=== PATIENT | female | born 1935 | race Caucasian/White ===

== ENCOUNTER 2022-02-15 15:20 | Inpatient (IN) | payer BC, MEDICARE ==
[~2022-02-15] VITALS: Ht 160 cm; Wt 58.1 kg
[~2022-02-15 15:20] MED LIST: [UNRECOGNIZED DRUG - REMARK]
--- NOTE | 2022-02-15 15:38 | NUR ---
To ER bed 14, MACEY RA 102 From [facility] "Psych/Combative/Agitated", uncooperative, connected to monitor, breathing even and non labored, awaiting md orders
--- NOTE | 2022-02-15 15:55 | NUR ---
AIR GRINDER AT BEDSIDE FOR BLOOD DRAW
--- NOTE | 2022-02-15 16:09 | NUR ---
URINE COLLECTED AND SENT TO LAB
[2022-02-15 16:17] LABS: BASOPHILS % (AUTO) 0.3 % (0.0-2.0); EOSINOPHILS % (AUTO) 2.2 % (0.0-6.0); HEMATOCRIT 37 % (33-45); HEMOGLOBIN 12.7 g/dL (11.5-14.8); LYMPHOCYTES # (AUTO) 1.7 K/uL (0.8-4.8); LYMPHOCYTES % (AUTO) 18.1 % (20.0-44.0); MEAN CORPUSCULAR HGB CONC 34 g/dl (31.0-36.0); MEAN CORPUSCULAR VOLUME 95 fL (82-100); MONOCYTES % (AUTO) 10.7 % (2.0-12.0); NEUTROPHILS # (AUTO) 6.4 K/uL (1.8-8.9); NEUTROPHILS % (AUTO) 68.7 % (43.0-81.0); PLATELET COUNT (AUTO) 254 K/uL (150-450); RED BLOOD CELL COUNT(AUTO) 3.92 MIL/uL (4.0-5.2); WHITE BLOOD COUNT (AUTO) 9.3 K/uL (4.3-11.0)
[2022-02-15 16:27] LABS: CARBON DIOXIDE 27 mmol/L (21-32); CHLORIDE 96 mmol/L (98-107); CREATININE 0.7 mg/dL (0.6-1.3); GLUCOSE 144 mg/dL (74-106); POTASSIUM 3.8 mmol/L (3.5-5.1); SODIUM SERUM 132 mmol/L (136-145); UREA NITROGEN, BLOOD 16 mg/dL (7-18)
[2022-02-15 16:35] LABS: ACETAMINOPHEN 0 ug/ml (10-30); ALANINE AMINOTRANSFERASE 14 U/L (12-78); ALCOHOL, BLOOD < 3 mg/dL (0-0); ALKALINE PHOSPHATASE 76 U/L (46-116); ASPARTATE AMINOTRANSFERASE 14 U/L (15-37); BILIRUBIN,DIRECT 0.2 mg/dL (0.0-0.2); BILIRUBIN,TOTAL 0.6 mg/dL (0.2-1.0); TOTAL PROTEIN, SERUM 7.5 g/dL (6.4-8.2)
[2022-02-15 17:14] LABS: BILIRUBIN,URINE NEGATIVE (NEGATIVE); COLOR,URINE YELLOW (YELLOW); LEUKOCYTE ESTERASE ,URINE MODERATE (NEGATIVE); NITRITE, URINE NEGATIVE (NEGATIVE); PROTEIN,URINE NEGATIVE (NEGATIVE); UGLUCOSE NEGATIVE (NEGATIVE); UROBILINOGEN,URINE 0.2 EU/dL (0.2)
[2022-02-15 17:19] LABS: BACTERIA,URINE 1+ /HPF (None Seen); SQUAMOUS EPITHELIAL CELL,UR 0-2 /HPF (None Seen); WBC,URINE 81-100 /HPF (0-3)
[2022-02-15] MEDS ORDERED: LEVO50TA8 PO (17:27)
[2022-02-15] MEDS ORDERED: DIVA125T32 PO (17:27)
[2022-02-15] MEDS ORDERED: QUET25TA PO ×2 (17:27)
[2022-02-15] MEDS ORDERED: LORA-258 PO (17:27)
[2022-02-15] MEDS ORDERED: TRAZ-182 PO (17:27)
[2022-02-15] MEDS ORDERED: ONDA-97 PO (17:27)
[2022-02-15] MEDS ORDERED: LOPE2TAB23 PO (17:27)
[2022-02-15] MEDS ORDERED: VALE500C PO (17:27)
[2022-02-15] MEDS ORDERED: PANT40TA49 PO (17:27)
[2022-02-15] MEDS ORDERED: ATOR20TA PO (17:27)
--- NOTE | 2022-02-15 18:32 | NUR ---
MOVE SHEET SUBMITTED.
[2022-02-15] MEDS ORDERED: ONDANSETRON 4 MG TAB.RAPDIS PO PRN (19:30)
[2022-02-15] MEDS ORDERED: LOPERAMIDE HCL (2 MG CAP) 2 MG CAPSULE PO PRN (19:30)
--- NOTE | 2022-02-15 21:53 | NUR ---
REPORT GIVEN TO ANDRIA RIVAS
--- NOTE | 2022-02-15 22:12 | NUR ---
PATIENT TRANSFERRED TO [facility]
[2022-02-15] MEDS ORDERED: MAGNESIUM HYDROXIDE 30 ML UDC PO PRN (23:00)
[2022-02-15] MEDS: ATORVASTATIN 10 MG TABLET PO SCH (23:12)
[2022-02-15] MEDS ORDERED: BLOOD SUGAR DIAGNOSTIC 1 EACH STRIP IN ONE (23:30)
[2022-02-15 23:33] VITALS: BP 125/69
--- NOTE | 2022-02-16 00:54 | NUR ---
RN NOTES : ADMISSION NOTES: ADMITTED THIS 87Y/O FEMALE PATIENT ADMIT FROM [facility] , INIT[facility]ALLY [facility] [place]. ADMITTED TO 5150 HOLD DTO,DTS,GD , PER HOLD PT.SUICIDAL THOUGHTS ,REFUSING MEDS, NOT SLEEPING . UPON FACE TO FACE ASSESSMENT PATIENT IS A&O X1, DEPRESSED ,EASILY AGITATED, POOR EYE CONTACT ,DISORGNIZED,RESTLESS,PARANOID,POOR DECISION MAKING ,DENIES SI /HI AT THIS TIME, PT. IS POOR HISTORIAN, POOR INSIGHT ,POOR JUDGEMENT , BOTH MD AWARE AND NOTIFIED OF THE ADMISSION, BELONGINGS CONTRABAND WERE DONE , PT. REFUSED SIGNS ADMISSION CONSENT PAPER DUE TO CONFUSED ,TIRED ,ENCOURAGED PT. TO TAKE SHOWER, PT. RIGHTS DISCUSS BY PROFESSOR OF RADIOLOGY , PROVIDE THE PT. WITH HANDBOOK, AND MEDICATIONS GUIDE, ENVIRONMENTAL SAFETY CHECK DONE, ENCOURAGED PT. VERBALIZED ANY FEELING CONCERN TO STAFF, ORIENT TO UNIT POLICY, NO ACUTE DISTRESS NOTED,VITAL SIGNS WNL ,DENIES ANY PAIN AT THIS TIME,WILL CONTINUE TO MONITOR FOR Q15 SAFETY AND BEHAVIOR.
[2022-02-16] MEDS: LORAZEPAM 0.5 MG TABLET PO PRN (04:23)
--- NOTE | 2022-02-16 04:25 | NUR ---
RN NOTES: ANXIETY PT. NOTED VERY ANXIOUS PARANOID ,RESTLESS, UNCOOERTIVE , NONREDIRECTABLE PRN ATIVAN 0.5 MG PO GIVEN FOR PT. BEHAVIOR, WILL CONTINUE TO MONITOR.
--- NOTE | 2022-02-16 07:30 | NUR ---
RN NOTE: CALLED JEAN-PIERRE ANTON AT [phone] AND NOTIFIED REGARDING PATIENT'S ADMISSION AT [facility].
[2022-02-16 08:00] VITALS: BP 143/69
[2022-02-16] MEDS: LEVOTHYROXINE SODIUM 50 MCG TABLET PO SCH (08:09)
[2022-02-16] MEDS: Z GUARD REMEDY 4 OZ OINT TP SCH (08:10)
[2022-02-16] MEDS: PANTOPRAZOLE 40 MG TABLET.DR PO SCH (08:11)
[2022-02-16] MEDS ORDERED: VALERIAN ROOT PO SCH (09:00)
[2022-02-16] MEDS ORDERED: DIVALPROEX SODIUM 125 MG TABLET.DR PO SCH (09:00)
[2022-02-16 16:00] VITALS: BP 138/69
[2022-02-16] MEDS: QUETIAPINE FUMARATE 25 MG TABLET PO SCH (16:48)
[2022-02-16] MEDS: DIVALPROEX SODIUM 125 MG CAP.SPRINK PO SCH (16:48)
--- NOTE | 2022-02-16 20:26 | NUR ---
RN NOTES:RECEIVED PATIENT RESTING IN HER ROOM, NO S/SX OF ACUTE DISTRESS NOTED. PATIENT REMAINS CONFUSED, ANXIOUS, DISORGANIZED,GIVING INAPPROPRIATE ANSWER TO QUESTIONS, PARANOID, NONREDIRECTABLE NEEDS FREQUENT REDIRECTION. DENIES SI/HI AT THIS TIME.ENCOURAGE TO VERBALIZED ANY FEELING OR CONCERN, SAFETY MEASURES IN PLACE. WILL CONTINUE TO MONITOR Q15MIN ROUNDS FOR SAFETY AND BEHAVIOR.
[2022-02-16 21:05] VITALS: BP 127/60
[2022-02-16] MEDS: QUETIAPINE FUMARATE 100 MG TABLET PO SCH (21:14)
[2022-02-16] MEDS: ATORVASTATIN 10 MG TABLET PO SCH (21:14)
[2022-02-16] MEDS: Z GUARD REMEDY 4 OZ OINT TP PRN (23:29)
--- NOTE | 2022-02-17 00:07 | NUR ---
GPS RN NOTE, PATIENT UA RESULTS ON THE 02/15 ARE FOLLOWS LEUKOCYTES MODERATE H, WBC 81-100 H, BACTERA 1 + H, URINE CULTURE SHOED GRAM NEGATIVE RODS, AND WE ARE WAITING FOR SENSITIVITY. PAGED [facility] Litographs [facility] AND INFORMED DR ROUSE OF MY FINDINGS. DR ROUSE ORDERED BACTRIM DS 800/160MG PO Q12HR X 7 DAYS. ALL ORDERS NOTED AND CARRIED OUT WILL CONTINUE TO MONITOR THIS PATIENT WITH THE HELP OF STAFF.
--- NOTE | 2022-02-17 05:30 | NUR ---
RN NOTES: REFUSED SHOWER PT. REFUSED SHOWER , PER PT. I DONT WANT SHOWER AT THIS TIME, PT BEHAVIOR UNCOOPERTIVE , EASILY AGITATED , ENCOURAGED X3 FOR SHOWER, BUT PT. STRONGLY REFUSED, ENDORSE TO AM SHIFT NURSE.
[2022-02-17 07:19] LABS: BASOPHILS % (AUTO) 0.6 % (0.0-2.0); EOSINOPHILS % (AUTO) 3.5 % (0.0-6.0); HEMATOCRIT 36 % (33-45); HEMOGLOBIN 12.5 g/dL (11.5-14.8); LYMPHOCYTES # (AUTO) 2.1 K/uL (0.8-4.8); LYMPHOCYTES % (AUTO) 37.9 % (20.0-44.0); MEAN CORPUSCULAR HGB CONC 35 g/dl (31.0-36.0); MEAN CORPUSCULAR VOLUME 95 fL (82-100); MONOCYTES # (AUTO) 0.7 K/uL (0.1-1.30); MONOCYTES % (AUTO) 12.5 % (2.0-12.0); NEUTROPHILS # (AUTO) 2.5 K/uL (1.8-8.9); NEUTROPHILS % (AUTO) 45.5 % (43.0-81.0); PLATELET COUNT (AUTO) 255 K/uL (150-450); RED BLOOD CELL COUNT(AUTO) 3.84 MIL/uL (4.0-5.2); WHITE BLOOD COUNT (AUTO) 5.6 K/uL (4.3-11.0)
[2022-02-17 08:00] VITALS: BP 119/52
[2022-02-17] MEDS: DIVALPROEX SODIUM 125 MG CAP.SPRINK PO SCH ×2 (08:17→16:06)
[2022-02-17] MEDS: SULFAMETH/TRIMETH 800/160 MG 1 UDTAB TABLET PO SCH ×2 (08:17→20:17)
[2022-02-17] MEDS: LEVOTHYROXINE SODIUM 50 MCG TABLET PO SCH (08:17)
[2022-02-17] MEDS: QUETIAPINE FUMARATE 25 MG TABLET PO SCH ×2 (08:17→16:06)
[2022-02-17] MEDS: PANTOPRAZOLE 40 MG TABLET.DR PO SCH (08:17)
[2022-02-17] MEDS: Z GUARD REMEDY 4 OZ OINT TP SCH (08:18)
[2022-02-17 08:42] LABS: CALCIUM, SERUM 8.8 mg/dL (8.5-10.1); CREATININE 0.7 mg/dL (0.6-1.3); POTASSIUM 3.6 mmol/L (3.5-5.1)
[2022-02-17 16:00] VITALS: BP 103/68
[2022-02-17] MEDS: LORAZEPAM 0.5 MG TABLET PO PRN (20:10)
--- NOTE | 2022-02-17 20:13 | NUR ---
RN NOTES: ANXIETY PATIENT NOTED TO BE VERY ANXIOUS, PARANOID, RESTLESS AND NON REDIRECTABLE AT THIS TIME. PRN ATIVAN 0.5 MG PO GIVEN FOR PT. BEHAVIOR, WILL CONTINUE TO MONITOR.
[2022-02-17 20:15] VITALS: BP 118/52
[2022-02-17 20:37] VITALS: BP 118/52
[2022-02-17] MEDS: ATORVASTATIN 10 MG TABLET PO SCH (21:33)
[2022-02-17] MEDS: QUETIAPINE FUMARATE 100 MG TABLET PO SCH (21:34)
--- NOTE | 2022-02-18 06:42 | NUR ---
PATIENT SLEPT WELL AT NIGHT. NO ACUTE CHANGES NOTED.
[2022-02-18 08:00] VITALS: BP 130/60
[2022-02-18] MEDS: LEVOTHYROXINE SODIUM 50 MCG TABLET PO SCH (08:29)
[2022-02-18] MEDS: QUETIAPINE FUMARATE 25 MG TABLET PO SCH ×2 (09:00→17:38)
[2022-02-18] MEDS: SULFAMETH/TRIMETH 800/160 MG 1 UDTAB TABLET PO SCH ×2 (09:00→21:30)
[2022-02-18] MEDS: PANTOPRAZOLE 40 MG TABLET.DR PO SCH (09:00)
[2022-02-18] MEDS: DIVALPROEX SODIUM 125 MG CAP.SPRINK PO SCH ×2 (09:00→17:38)
[2022-02-18] MEDS: Z GUARD REMEDY 4 OZ OINT TP SCH (09:05)
--- NOTE | 2022-02-18 11:32 | NUR ---
CORI Clinical Note: Pt placed on a 5150 hold for danger to herself and GD. Pt was aggressive at her facility. [place] [address]; ([phone]) and CORI spoke with Renee ford who stated that pt is welcomed back.
--- NOTE | 2022-02-18 11:32 | NUR ---
CORI Initial Discharge Plan: Patient currently resides at [facility] [address] [place] [address]; ([phone]) and CORI spoke with Renee ford who stated that pt is welcomed back. CORI will work with the MD, family, and treatment team to help coordinate appropriate discharge. Addendum: 02/20/22 at 1480 by CORI FERRELL Correction pt is from Address: [facility] at [address], [place] [address];
--- NOTE | 2022-02-18 11:33 | NUR ---
Treatment Plan: Pt refused to sign her treatment plan and was very confused.
[2022-02-18 16:00] VITALS: BP 136/59
[2022-02-18] MEDS: LORAZEPAM 0.5 MG TABLET PO PRN (19:30)
--- NOTE | 2022-02-18 19:33 | NUR ---
RN NOTE: ANXIETY PATIENT NOTED TO BE VERY ANXIOUS, RESTLESS, EASILY AGITATED, PARANOID AND NON REDIRECTABLE AT THIS TIME. PRN ATIVAN 0.5 MG PO GIVEN FOR PT. BEHAVIOR, WILL CONTINUE TO MONITOR.
[2022-02-18 20:08] VITALS: BP 161/73
[2022-02-18 20:50] VITALS: BP 141/70
[2022-02-18] MEDS: QUETIAPINE FUMARATE 100 MG TABLET PO SCH (21:43)
[2022-02-18] MEDS: ATORVASTATIN 10 MG TABLET PO SCH (21:44)
[2022-02-18 22:57] VITALS: BP 161/73
[2022-02-19 08:00] VITALS: BP 131/60
[2022-02-19] MEDS: LEVOTHYROXINE SODIUM 50 MCG TABLET PO SCH (08:15)
[2022-02-19] MEDS: QUETIAPINE FUMARATE 25 MG TABLET PO SCH ×2 (09:46→17:14)
[2022-02-19] MEDS: SULFAMETH/TRIMETH 800/160 MG 1 UDTAB TABLET PO SCH ×2 (09:46→21:00)
[2022-02-19] MEDS: DIVALPROEX SODIUM 125 MG CAP.SPRINK PO SCH ×3 (09:46→17:14)
[2022-02-19] MEDS: PANTOPRAZOLE 40 MG TABLET.DR PO SCH (09:46)
[2022-02-19] MEDS: Z GUARD REMEDY 4 OZ OINT TP SCH (09:48)
[2022-02-19] MEDS: LORAZEPAM 0.5 MG TABLET PO PRN (10:50)
--- NOTE | 2022-02-19 10:50 | NUR ---
pt anxious medicated with ativan 0.5mg x1 will continue to monitor .
--- NOTE | 2022-02-19 13:05 | NUR ---
CORI FAMILY CONTACT: CORI CONTACTED PT'S SON JEAN-PIERRE ([phone]) AND DISCUSSED PT'S DISCHARGE AND TREATMENT PLAN. SON STATED HE WANTS PT BACK TO [facility]. Addendum: 02/27/22 at 1115 by CORI FERRELL Correct number ([phone])
[2022-02-19 16:16] VITALS: BP 100/59
--- NOTE | 2022-02-19 19:30 | NUR ---
GPS RN NOTES RECEIVED PT IN CHAY CHAIR. ALERT AND DISORIENTED. STATING A DIFFERENT NAME WHEN ASKED. PT IS CONFUSED, ANXIOUS, DISORGANIZED, PARANOID, DISHEVELED, UNKEMPT, NON-REDIRECTABLE AT THIS TIME. ENCOURAGED TO VERBALIZE FEELINGS OR THOUGHTS. HAS UNSTEADY GAIT. SAFETY MEASURES IN PLACED. WILL CONTINUE TO MONITOR Q15MIN ROUNDS FOR SAFETY AND BEHAVIOR.
[2022-02-19] MEDS: QUETIAPINE FUMARATE 100 MG TABLET PO SCH (21:00)
[2022-02-19] MEDS: ATORVASTATIN 10 MG TABLET PO SCH (21:00)
[2022-02-19 22:32] VITALS: BP 136/78
[2022-02-20 08:00] VITALS: BP 114/52
[2022-02-20] MEDS: LEVOTHYROXINE SODIUM 50 MCG TABLET PO SCH (08:14)
[2022-02-20] MEDS: QUETIAPINE FUMARATE 25 MG TABLET PO SCH ×4 (08:56→21:28)
[2022-02-20] MEDS: DIVALPROEX SODIUM 125 MG CAP.SPRINK PO SCH ×3 (08:56→17:53)
[2022-02-20] MEDS: PANTOPRAZOLE 40 MG TABLET.DR PO SCH (08:56)
[2022-02-20] MEDS: SULFAMETH/TRIMETH 800/160 MG 1 UDTAB TABLET PO SCH ×2 (08:56→21:28)
[2022-02-20] MEDS: Z GUARD REMEDY 4 OZ OINT TP SCH (08:58)
--- NOTE | 2022-02-20 09:52 | NUR ---
Facility Contact: [facility] at [address], [place] [address]; and left a voicemail to confirm if pt is welcomed back or not to admissions.
--- NOTE | 2022-02-20 13:08 | NUR ---
RN-CO: REFUSED EKG, RT NOTIFIED DR CESPEDES WHILE IS IN THE NURSING STATION.
[2022-02-20 16:00] VITALS: BP 117/90
[2022-02-20 20:00] VITALS: BP 135/65
[2022-02-20 21:17] LABS: BASOPHILS % (AUTO) 0.6 % (0.0-2.0); EOSINOPHILS % (AUTO) 6.5 % (0.0-6.0); HEMATOCRIT 40 % (33-45); HEMOGLOBIN 13.6 g/dL (11.5-14.8); LYMPHOCYTES # (AUTO) 2.6 K/uL (0.8-4.8); LYMPHOCYTES % (AUTO) 37.3 % (20.0-44.0); MEAN CORPUSCULAR HGB CONC 34 g/dl (31.0-36.0); MEAN CORPUSCULAR VOLUME 97 fL (82-100); MONOCYTES # (AUTO) 0.7 K/uL (0.1-1.30); MONOCYTES % (AUTO) 9.8 % (2.0-12.0); NEUTROPHILS # (AUTO) 3.2 K/uL (1.8-8.9); NEUTROPHILS % (AUTO) 45.8 % (43.0-81.0); PLATELET COUNT (AUTO) 288 K/uL (150-450); RED BLOOD CELL COUNT(AUTO) 4.13 MIL/uL (4.0-5.2)
[2022-02-20] MEDS: ATORVASTATIN 10 MG TABLET PO SCH (21:28)
[2022-02-20 21:30] LABS: ALBUMIN 3.9 g/dL (3.4-5.0); BILIRUBIN,TOTAL 0.3 mg/dL (0.2-1.0); CALCIUM, SERUM 9.4 mg/dL (8.5-10.1); CREATININE 0.9 mg/dL (0.6-1.3); POTASSIUM 4.4 mmol/L (3.5-5.1); TOTAL PROTEIN, SERUM 7.7 g/dL (6.4-8.2)
[2022-02-20] MEDS: ZOLPIDEM TARTRATE 5 MG TABLET PO PRN (23:03)
[2022-02-21 08:00] VITALS: BP 131/60
[2022-02-21] MEDS: LEVOTHYROXINE SODIUM 50 MCG TABLET PO SCH (09:09)
--- NOTE | 2022-02-21 09:27 | NUR ---
Court Hearing: Patient's court hearing for 0880 was today and it was upheld for GD.
--- NOTE | 2022-02-21 09:27 | NUR ---
Court Notification: SW contacted pt's son Jerald ([phone]) and left a voicemail of pt's 0999 hearing.
[2022-02-21] MEDS: SULFAMETH/TRIMETH 800/160 MG 1 UDTAB TABLET PO SCH ×2 (10:10→20:35)
[2022-02-21] MEDS: DIVALPROEX SODIUM 125 MG CAP.SPRINK PO SCH ×3 (10:11→16:43)
[2022-02-21] MEDS: PANTOPRAZOLE 40 MG TABLET.DR PO SCH (10:11)
[2022-02-21] MEDS: Z GUARD REMEDY 4 OZ OINT TP SCH (10:11)
[2022-02-21] MEDS: QUETIAPINE FUMARATE 25 MG TABLET PO SCH ×4 (10:11→21:22)
[2022-02-21 16:00] VITALS: BP 104/75
[2022-02-21] MEDS: LORAZEPAM 0.5 MG TABLET PO PRN (19:53)
--- NOTE | 2022-02-21 19:55 | NUR ---
RN NOTES: ANXIETY PT. NOTED VERY ANXIOUS, PARANOID ,RESTLESS, HYPERVERBAL, REFUSED GO BACK TO BED,NONREDIRECTABLE PRN ATIVAN 0.5 MG PO GIVEN , WILL CONTINUE TO MONITOR.
[2022-02-21 20:00] VITALS: BP 122/64
--- NOTE | 2022-02-21 20:25 | NUR ---
RN NOTES: PATIENT SITTING UP IN CHAY CHAIR, NO S/SX OF ACUTE DISTRESS NOTED. PATIENT CONFUSED, ANXIOUS,FORGETFUL,HYPERVERBAL DISORGANIZED,GIVING INAPPROPRIATE ANSWER TO QUESTIONS, PARANOID, NONREDIRECTABLE,REFUSED GO BACK TO HER BED, NEEDS FREQUENT REDIRECTION. DENIES SI/HI AT THIS TIME.ENCOURAGE TO VERBALIZED ANY FEELING OR CONCERN, SAFETY MEASURES IN PLACE. WILL CONTINUE TO MONITOR Q15MIN ROUNDS FOR SAFETY AND BEHAVIOR.
[2022-02-21] MEDS: ATORVASTATIN 10 MG TABLET PO SCH (21:21)
[2022-02-22 08:00] VITALS: BP 123/54
[2022-02-22] MEDS: DIVALPROEX SODIUM 125 MG CAP.SPRINK PO SCH ×3 (08:23→16:47)
[2022-02-22] MEDS: LEVOTHYROXINE SODIUM 50 MCG TABLET PO SCH (08:23)
[2022-02-22] MEDS: SULFAMETH/TRIMETH 800/160 MG 1 UDTAB TABLET PO SCH ×2 (08:24→21:08)
[2022-02-22] MEDS: PANTOPRAZOLE 40 MG TABLET.DR PO SCH (08:24)
[2022-02-22] MEDS: QUETIAPINE FUMARATE 25 MG TABLET PO SCH ×4 (08:24→21:37)
[2022-02-22] MEDS: ENSURE ENLIVE CHOC 237 ML CAN PO SCH ×2 (08:24→16:46)
[2022-02-22] MEDS: Z GUARD REMEDY 4 OZ OINT TP SCH (08:24)
--- NOTE | 2022-02-22 14:48 | NUR ---
Facility Contact: Per pt's son Jerald, he requested for [facility] ([phone]) to assess the pt. Angie assessed pt and pt is accepted.
[2022-02-22 16:00] VITALS: BP 113/60
[2022-02-22] MEDS: LORAZEPAM 0.5 MG TABLET PO PRN (19:38)
--- NOTE | 2022-02-22 19:39 | NUR ---
RN NOTES: ANXIETY PT. NOTED VERY ANXIOUS, PARANOID ,RESTLESS, HYPERVERBAL, ,NORREDIRECTABLE PRN ATIVAN 0.5 MG PO GIVEN , WILL CONTINUE TO MONITOR.
[2022-02-22 20:54] VITALS: BP 142/60
[2022-02-22] MEDS: ATORVASTATIN 10 MG TABLET PO SCH (21:37)
[2022-02-23] MEDS: Z GUARD REMEDY 4 OZ OINT TP PRN (06:55)
[2022-02-23 08:00] VITALS: BP 116/55
[2022-02-23] MEDS: PANTOPRAZOLE 40 MG TABLET.DR PO SCH (09:19)
[2022-02-23] MEDS: DIVALPROEX SODIUM 125 MG CAP.SPRINK PO SCH ×3 (09:19→17:41)
[2022-02-23] MEDS: QUETIAPINE FUMARATE 25 MG TABLET PO SCH ×4 (09:19→21:45)
[2022-02-23] MEDS: SULFAMETH/TRIMETH 800/160 MG 1 UDTAB TABLET PO SCH ×2 (09:19→20:51)
[2022-02-23] MEDS: ENSURE ENLIVE CHOC 237 ML CAN PO SCH ×2 (09:19→17:40)
[2022-02-23] MEDS: LEVOTHYROXINE SODIUM 50 MCG TABLET PO SCH (09:19)
[2022-02-23] MEDS: Z GUARD REMEDY 4 OZ OINT TP SCH (09:20)
--- NOTE | 2022-02-23 10:26 | NUR ---
Asya VALDES made aware of the result of chest x-ray and ordered to repeat chest x-ray tomorrow.
[2022-02-23 16:00] VITALS: BP 127/60
[2022-02-23] MEDS: LORAZEPAM 0.5 MG TABLET PO PRN (19:33)
--- NOTE | 2022-02-23 19:35 | NUR ---
RN NOTES: ANXIETY PT. NOTED VERY ANXIOUS, PARANOID ,RESTLESS, HYPERVERBAL,BANGING GERICHAIR TABLE YELLING SCRAMING NONREDIRECTABLE PRN ATIVAN 0.5 MG PO GIVEN , WILL CONTINUE TO MONITOR.
--- NOTE | 2022-02-23 20:29 | NUR ---
RN NOTES:PATIENT WATCHING TV IN ACTIVITY ROOM, NO S/SX OF ACUTE DISTRESS NOTED. PATIENT CONFUSED, ANXIOUS,FORGETFUL,HYPERVERBAL DISORGANIZED,GIVING INAPPROPRIATE ANSWER TO QUESTIONS, PARANOID, NONREDIRECTABLE,REFUSED GO BACK TO HER BED, NEEDS FREQUENT REDIRECTION. DENIES SI/HI AT THIS TIME.ENCOURAGE TO VERBALIZED ANY FEELING OR CONCERN, SAFETY MEASURES IN PLACE. WILL CONTINUE TO MONITOR Q15MIN ROUNDS FOR SAFETY AND BEHAVIOR.
[2022-02-23 20:52] VITALS: BP 132/74
[2022-02-23] MEDS: ATORVASTATIN 10 MG TABLET PO SCH (21:44)
[2022-02-24] MEDS: Z GUARD REMEDY 4 OZ OINT TP PRN (07:11)
[2022-02-24 08:00] VITALS: BP 122/53
[2022-02-24] MEDS: ENSURE ENLIVE CHOC 237 ML CAN PO SCH ×2 (08:55→16:33)
[2022-02-24] MEDS: DIVALPROEX SODIUM 125 MG CAP.SPRINK PO SCH ×3 (08:57→16:34)
[2022-02-24] MEDS: PANTOPRAZOLE 40 MG TABLET.DR PO SCH (08:57)
[2022-02-24] MEDS: QUETIAPINE FUMARATE 25 MG TABLET PO SCH ×4 (08:57→21:39)
[2022-02-24] MEDS: LEVOTHYROXINE SODIUM 50 MCG TABLET PO SCH (08:57)
[2022-02-24] MEDS: Z GUARD REMEDY 4 OZ OINT TP SCH (08:58)
[2022-02-24 16:11] VITALS: BP 106/73
[2022-02-24] MEDS: LORAZEPAM 0.5 MG TABLET PO PRN (18:47)
[2022-02-24] MEDS: ATORVASTATIN 10 MG TABLET PO SCH (21:38)
[2022-02-24] MEDS: ZOLPIDEM TARTRATE 5 MG TABLET PO PRN (21:54)
[2022-02-25] MEDS: LORAZEPAM 0.5 MG TABLET PO PRN ×3 (00:26→19:48)
[2022-02-25 08:00] VITALS: BP 117/81
[2022-02-25] MEDS: LEVOTHYROXINE SODIUM 50 MCG TABLET PO SCH (08:08)
[2022-02-25] MEDS: ENSURE ENLIVE CHOC 237 ML CAN PO SCH ×2 (08:08→17:56)
[2022-02-25] MEDS: QUETIAPINE FUMARATE 25 MG TABLET PO SCH ×4 (08:48→21:48)
[2022-02-25] MEDS: Z GUARD REMEDY 4 OZ OINT TP PRN (08:48)
[2022-02-25] MEDS: PANTOPRAZOLE 40 MG TABLET.DR PO SCH (08:48)
[2022-02-25] MEDS: DIVALPROEX SODIUM 125 MG CAP.SPRINK PO SCH ×3 (08:48→17:56)
[2022-02-25] MEDS: Z GUARD REMEDY 4 OZ OINT TP SCH (08:49)
[2022-02-25 16:00] VITALS: BP 116/55
--- NOTE | 2022-02-25 19:50 | NUR ---
RN NOTE: ANXIETY PATIENT IS ANXIOUS, RESTLESS, BANGING ON CHAY CHAIR TRAY. NON REDIRECTABLE AT THIS TIME. PRN ATIVAN 0.5 MG PO ADMINISTERED.
[2022-02-25 20:16] VITALS: BP 128/52
[2022-02-25 20:23] VITALS: BP 128/52
[2022-02-25] MEDS: ATORVASTATIN 10 MG TABLET PO SCH (21:30)
[2022-02-26] MEDS: LEVOTHYROXINE SODIUM 50 MCG TABLET PO SCH (07:27)
[2022-02-26 08:00] VITALS: BP 133/59
[2022-02-26] MEDS: ENSURE ENLIVE CHOC 237 ML CAN PO SCH ×2 (08:15→17:53)
[2022-02-26] MEDS: DIVALPROEX SODIUM 125 MG CAP.SPRINK PO SCH ×3 (08:47→17:52)
[2022-02-26] MEDS: PANTOPRAZOLE 40 MG TABLET.DR PO SCH (08:47)
[2022-02-26] MEDS: Z GUARD REMEDY 4 OZ OINT TP SCH (08:48)
[2022-02-26] MEDS: QUETIAPINE FUMARATE 25 MG TABLET PO SCH ×4 (08:49→21:19)
[2022-02-26 12:55] LABS: BASOPHILS % (AUTO) 0.5 % (0.0-2.0); EOSINOPHILS % (AUTO) 5.3 % (0.0-6.0); HEMATOCRIT 39 % (33-45); LYMPHOCYTES # (AUTO) 1.7 K/uL (0.8-4.8); LYMPHOCYTES % (AUTO) 23.6 % (20.0-44.0); MEAN CORPUSCULAR HGB CONC 34 g/dl (31.0-36.0); MEAN CORPUSCULAR VOLUME 98 fL (82-100); MONOCYTES # (AUTO) 0.5 K/uL (0.1-1.30); MONOCYTES % (AUTO) 6.8 % (2.0-12.0); NEUTROPHILS # (AUTO) 4.6 K/uL (1.8-8.9); NEUTROPHILS % (AUTO) 63.8 % (43.0-81.0); PLATELET COUNT (AUTO) 264 K/uL (150-450); RED BLOOD CELL COUNT(AUTO) 3.95 MIL/uL (4.0-5.2); WHITE BLOOD COUNT (AUTO) 7.3 K/uL (4.3-11.0)
[2022-02-26 13:17] LABS: ALANINE AMINOTRANSFERASE 17 U/L (12-78); ALBUMIN 3.4 g/dL (3.4-5.0); ALKALINE PHOSPHATASE 73 U/L (46-116); ASPARTATE AMINOTRANSFERASE 14 U/L (15-37); BILIRUBIN,TOTAL 0.4 mg/dL (0.2-1.0); CALCIUM, SERUM 8.9 mg/dL (8.5-10.1); CARBON DIOXIDE 31 mmol/L (21-32); CHLORIDE 104 mmol/L (98-107); CREATININE 0.8 mg/dL (0.6-1.3); GLUCOSE 144 mg/dL (74-106); POTASSIUM 4.3 mmol/L (3.5-5.1); SODIUM SERUM 140 mmol/L (136-145); TOTAL PROTEIN, SERUM 6.9 g/dL (6.4-8.2); UREA NITROGEN, BLOOD 22 mg/dL (7-18)
[2022-02-26 16:07] VITALS: BP 120/96
[2022-02-26] MEDS: LORAZEPAM 0.5 MG TABLET PO PRN (19:40)
--- NOTE | 2022-02-26 19:43 | NUR ---
RN NOTE: ANXIETY/AGITATION PATIENT IS ANXIOUS, RESTLESS, AGITATED, BANGING ON CHAY CHAIR TRAY. NON REDIRECTABLE AT THIS TIME. PRN ATIVAN 0.5 MG PO ADMINISTERED. WILL CONTINUE TO MONITOR FOR ANY CHANGES.
[2022-02-26 20:10] VITALS: BP 117/80
[2022-02-26] MEDS: ATORVASTATIN 10 MG TABLET PO SCH (21:05)
[2022-02-26] MEDS: ACETAMINOPHEN 325 MG TABLET PO PRN (21:25)
--- NOTE | 2022-02-26 21:26 | NUR ---
RN NOTE: PAIN PATIENT C/O LOWER BACK PAIN, UNABLE TO SCALE DUE TO CONFUSION. PRN TYLENOL 650 MG PO ADMINISTERED PER MD ORDER. WILL CONTINUE TO MONITOR FOR ANY CHANGES.
[2022-02-26] MEDS: ZOLPIDEM TARTRATE 5 MG TABLET PO PRN (22:12)
--- NOTE | 2022-02-26 22:12 | NUR ---
RN NOTE: INSOMNIA PATIENT WAS ASSISTED TO BED BUT PATIENT REFUSED TO STAY IN BED. PATIENT WAS ASSISTED BACK TO THE CHAY CHAIR FOR SAFETY DUE TO UNSTEADY GAIT AND HIGH FALL RISK. PATIENT NOTED TO BE ANXIOUS, RESTLESS, UNABLE TO SLEEP AT THIS TIME. PRN AMBIEN 5 MG PO ADMINISTERED ORDERED BY MD. WILL CONTINUE TO MONITOR FOR ANY CHANGES.
[2022-02-27] MEDS: LEVOTHYROXINE SODIUM 50 MCG TABLET PO SCH (07:42)
[2022-02-27 08:00] VITALS: BP 122/56
[2022-02-27] MEDS: PANTOPRAZOLE 40 MG TABLET.DR PO SCH (08:46)
[2022-02-27] MEDS: DIVALPROEX SODIUM 125 MG CAP.SPRINK PO SCH ×4 (08:46→17:40)
[2022-02-27] MEDS: ENSURE ENLIVE CHOC 237 ML CAN PO SCH ×2 (08:46→17:40)
[2022-02-27] MEDS: QUETIAPINE FUMARATE 25 MG TABLET PO SCH ×5 (08:46→21:24)
[2022-02-27] MEDS: Z GUARD REMEDY 4 OZ OINT TP SCH (08:47)
[2022-02-27] MEDS: ACETAMINOPHEN 325 MG TABLET PO PRN (09:11)
[2022-02-27] MEDS: MAG HYDROX/AL HYDROX/SIMETH 30 ML UDC PO PRN ×2 (09:18→15:57)
[2022-02-27] MEDS ORDERED: TEMAZEPAM 7.5 MG CAPSULE PO PRN (12:30)
--- NOTE | 2022-02-27 14:00 | NUR ---
NURSE NOTE: PT REFUSED 1300 DEPAKOTE AND SEROQUEL. ATTEMPTED TO GIVE A FEW TIMES, BUT PT REFUSED EACH TIME. WILL CONT TO MONITOR.
[2022-02-27 16:00] VITALS: BP 126/88
[2022-02-27] MEDS: MEMANTINE HCL 5 MG TABLET PO SCH (17:40)
[2022-02-27 20:00] VITALS: BP 143/58
[2022-02-27] MEDS: LORAZEPAM 0.5 MG TABLET PO PRN (20:18)
--- NOTE | 2022-02-27 20:20 | NUR ---
NURSE NOTE: PT IN AGITATED STATE AT THIS TIME. ATIVAN PO ADMINISTERED ORDERED. WILL CONT TO MONITOR.
[2022-02-27] MEDS: ATORVASTATIN 10 MG TABLET PO SCH (21:24)
[2022-02-28 08:00] VITALS: BP 133/67
[2022-02-28] MEDS: LEVOTHYROXINE SODIUM 50 MCG TABLET PO SCH (09:53)
[2022-02-28] MEDS: DIVALPROEX SODIUM 125 MG CAP.SPRINK PO SCH ×3 (09:53→16:44)
[2022-02-28] MEDS: PANTOPRAZOLE 40 MG TABLET.DR PO SCH (09:53)
[2022-02-28] MEDS: QUETIAPINE FUMARATE 25 MG TABLET PO SCH ×4 (09:53→22:15)
[2022-02-28] MEDS: MEMANTINE HCL 5 MG TABLET PO SCH ×2 (09:53→16:44)
[2022-02-28] MEDS: Z GUARD REMEDY 4 OZ OINT TP SCH (09:54)
[2022-02-28] MEDS: ENSURE ENLIVE CHOC 237 ML CAN PO SCH ×2 (09:56→16:45)
[2022-02-28] MEDS: SERTRALINE HCL 25 MG TABLET PO SCH (13:36)
[2022-02-28 16:00] VITALS: BP 140/74
--- NOTE | 2022-02-28 18:37 | NUR ---
RN-NOTES PATIENT IN THE DAY ROOM UP IN THE CHAY CHAIR,AWAKE, GUARDED, QUIET,NO ACUTE DISTRESS NOTED. COMPLIANT WITH MEDICATIONS. GOOD JANUARY CARE RENDERED,NEEDS MODERATE ASSIST WITH ADL'S. NOTED WITH EPISODE OF CRYING. REDIRECTED AND AND REORIENTED PATIENT. ALL NEEDS ATTENDED AND ANTICIPATED. WILL CONT. MONITORING FOR SAFETY AND BEHAVIOR.WILL ENDORSE TO INCOMING NURSE FOR CONTINUITY OF CARE.
--- NOTE | 2022-02-28 19:30 | NUR ---
GPS RN NOTE, RECEIVED PATIENT AWAKE AND IN BED, NO S/S OR COMPLAINTS OF PAIN AT THIS TIME. PATIENT IS DISPLAYING NO S/S OF APPARENT DISTRESS AT THIS TIME. PATIENT BREATHING IS UNLABORED WITH EQUAL RISE AND FALL OF THE CHEST. PATIENT IS ALERT AND ORIENTED X 1 ON ROOM AIR WITH A SPO2 96%. PATIENT IS COMPLIANT WITH MEDICATIONS, CONFUSED, ANXIOUS, HYPERVERBAL, UNPREDICTABLE, AND UNCOOPERATIVE. PATIENT DENIES SUICIDAL AND HOMICIDAL IDEATIONS AT THIS TIME. PATIENT ASSISTED WITH TURNING AND REPOSITIONING Q2HR AND PRN FOR COMFORT AND CIRCULATION. PATIENT HAS NO NEEDS AT THIS TIME. PATIENT EDUCATED ON THE USE OF THE CALL REES. PATIENT BED SIDE RAILS UP X 2 FOR SAFETY. PATIENT BED IS LOCKED, LOW, WITH BED ALARM ON. WILL CONTINUE TO MONITOR THIS PATIENT Q15 MINUTES WITH THE HELP OF STAFF TO MAINTAIN SAFETY.
[2022-02-28] MEDS: LORAZEPAM 0.5 MG TABLET PO PRN (20:24)
--- NOTE | 2022-02-28 20:25 | NUR ---
GPS RN NOTE, PATIENT HAS A COMPLAINT OF FEELING ANXIOUS AND IS REQUESTING ATIVAN AT THIS TIME. PATIENT VITAL SIGNS ARE STABLE. GAVE ATIVAN 0.5MG PO Q6HR PRN ORDERED. WILL REASSESS FOR ANXIETY AND I WLL CONTINUE TO MONITOR THIS PATIENT WITH THE HELP OF STAFF.
[2022-02-28] MEDS: ATORVASTATIN 10 MG TABLET PO SCH (22:15)
[2022-03-01 08:00] VITALS: BP 155/90
[2022-03-01] MEDS: ENSURE ENLIVE CHOC 237 ML CAN PO SCH ×2 (09:48→17:59)
[2022-03-01] MEDS: Z GUARD REMEDY 4 OZ OINT TP SCH (09:48)
[2022-03-01] MEDS: MEMANTINE HCL 5 MG TABLET PO SCH ×2 (09:50→17:58)
[2022-03-01] MEDS: QUETIAPINE FUMARATE 25 MG TABLET PO SCH ×4 (09:50→21:34)
[2022-03-01] MEDS: DOCUSATE SODIUM 100 MG CAPSULE PO SCH (09:51)
[2022-03-01] MEDS: PANTOPRAZOLE 40 MG TABLET.DR PO SCH (09:51)
[2022-03-01] MEDS: DIVALPROEX SODIUM 125 MG CAP.SPRINK PO SCH ×3 (09:51→17:58)
[2022-03-01] MEDS: LEVOTHYROXINE SODIUM 50 MCG TABLET PO SCH (09:51)
[2022-03-01] MEDS: SERTRALINE HCL 25 MG TABLET PO SCH (13:33)
[2022-03-01 16:00] VITALS: BP 145/76
--- NOTE | 2022-03-01 20:24 | NUR ---
RN NOTES: PATIENT RESTING IN BED AWAKE ALERT. PATIENT CONFUSED,ANXIOUS,FORGETFUL,HYPERVERBAL DISORGANIZED,GIVING INAPPROPRIATE ANSWER TO QUESTIONS, PARANOID, NONREDIRECTABLE, NEEDS FREQUENT REDIRECTION. DENIES SI/HI AT THIS TIME.ENCOURAGE TO VERBALIZED ANY FEELING OR CONCERN, SAFETY MEASURES IN PLACE. WILL CONTINUE TO MONITOR Q15MIN ROUNDS FOR SAFETY AND BEHAVIOR.
[2022-03-01 20:38] VITALS: BP 138/58
[2022-03-01] MEDS: ATORVASTATIN 10 MG TABLET PO SCH (21:34)
[2022-03-02 08:00] VITALS: BP 118/65
[2022-03-02] MEDS: ENSURE ENLIVE CHOC 237 ML CAN PO SCH ×2 (08:14→17:18)
[2022-03-02] MEDS: DOCUSATE SODIUM 100 MG CAPSULE PO SCH (08:20)
[2022-03-02] MEDS: LEVOTHYROXINE SODIUM 50 MCG TABLET PO SCH (08:20)
[2022-03-02] MEDS: PANTOPRAZOLE 40 MG TABLET.DR PO SCH (08:20)
[2022-03-02] MEDS: QUETIAPINE FUMARATE 25 MG TABLET PO SCH ×4 (08:20→21:41)
[2022-03-02] MEDS: Z GUARD REMEDY 4 OZ OINT TP SCH (08:21)
[2022-03-02] MEDS: MEMANTINE HCL 5 MG TABLET PO SCH ×2 (08:21→17:20)
[2022-03-02] MEDS: DIVALPROEX SODIUM 125 MG CAP.SPRINK PO SCH ×3 (09:54→17:20)
[2022-03-02] MEDS: SERTRALINE HCL 25 MG TABLET PO SCH (12:04)
[2022-03-02 16:00] VITALS: BP 129/61
[2022-03-02] MEDS: ATORVASTATIN 10 MG TABLET PO SCH (21:41)
[2022-03-02 22:33] VITALS: BP 132/68
[2022-03-03 08:00] VITALS: BP 112/55
[2022-03-03] MEDS: ENSURE ENLIVE CHOC 237 ML CAN PO SCH ×2 (08:42→16:54)
[2022-03-03] MEDS: Z GUARD REMEDY 4 OZ OINT TP SCH (08:45)
[2022-03-03] MEDS: DIVALPROEX SODIUM 125 MG CAP.SPRINK PO SCH ×3 (08:45→16:56)
[2022-03-03] MEDS: QUETIAPINE FUMARATE 25 MG TABLET PO SCH ×4 (08:45→21:12)
[2022-03-03] MEDS: MEMANTINE HCL 5 MG TABLET PO SCH ×2 (08:46→16:56)
[2022-03-03] MEDS: LEVOTHYROXINE SODIUM 50 MCG TABLET PO SCH (08:46)
[2022-03-03] MEDS: DOCUSATE SODIUM 100 MG CAPSULE PO SCH (08:46)
[2022-03-03] MEDS: PANTOPRAZOLE 40 MG TABLET.DR PO SCH (08:46)
[2022-03-03] MEDS: SERTRALINE HCL 25 MG TABLET PO SCH (12:27)
[2022-03-03 16:00] VITALS: BP 133/53
[2022-03-03 20:53] VITALS: BP 112/68
[2022-03-03] MEDS: ATORVASTATIN 10 MG TABLET PO SCH (21:12)
--- NOTE | 2022-03-04 06:12 | NUR ---
RN NOTES: COLLECT COVID ANTIGEN TEST SENT TO LAB.
--- NOTE | 2022-03-04 07:45 | NUR ---
RN NOTES: REFUSED SKIN ASSESSMENT PT.REFUSED WEEKLY SKIN ASSESSMENT, PER PT. I DONT WANT ANY SKIN ASSESSMENT AT THIS TIME, PT BEHAVIOR UNCOOPERTIVE , EASILY AGITATED , ENCOURAGED X3 , BUT PT. STRONGLY REFUSED.
[2022-03-04 08:00] VITALS: BP 120/54
--- NOTE | 2022-03-04 08:05 | NUR ---
Discharge Note: Patient will be discharged to [facility] located at [address] [place] [address]; ([phone]). Facility will provide transportation at 10AM. Angie cohen ([phone]) is aware and agreeable of pt coming to the facility. Patients son Jerald ([phone]) is aware and agreeable. Pt is alert and oriented x1. Pt denies visual/auditory hallucinations. Pt denies suicidal or homicidal ideation. Pt will follow up with (Business Information Analyst) Dr. Lynn at the facility located at [address] [place] [address]; ([phone]). Pt will follow up with Psychiatrist Dr. Andrade located at [address] [place] [address]; ([phone]) at the facility. Pt presents with euthymic mood and congruent affect. Addendum: 03/04/22 at 1116 by CORI FERRELL Discharge canceled and postponed for 03/05/2022. Pt's son Jerald is aware.
[2022-03-04] MEDS: LEVOTHYROXINE SODIUM 50 MCG TABLET PO SCH (08:07)
[2022-03-04] MEDS: ENSURE ENLIVE CHOC 237 ML CAN PO SCH ×2 (08:08→17:24)
[2022-03-04] MEDS: QUETIAPINE FUMARATE 25 MG TABLET PO SCH ×4 (09:47→21:05)
[2022-03-04] MEDS: DOCUSATE SODIUM 100 MG CAPSULE PO SCH (09:47)
[2022-03-04] MEDS: DIVALPROEX SODIUM 125 MG CAP.SPRINK PO SCH ×3 (09:47→17:27)
[2022-03-04] MEDS: MEMANTINE HCL 5 MG TABLET PO SCH ×2 (09:47→17:24)
[2022-03-04] MEDS: Z GUARD REMEDY 4 OZ OINT TP SCH (09:48)
[2022-03-04] MEDS: PANTOPRAZOLE 40 MG TABLET.DR PO SCH (09:51)
[2022-03-04] MEDS ORDERED: INFLUENZA VACCINE 2022-23 0.5 ML DISP.SYRIN IM ONE (12:00)
[2022-03-04] MEDS: SERTRALINE HCL 25 MG TABLET PO SCH (13:13)
[2022-03-04 16:00] VITALS: BP 115/65
[2022-03-04] MEDS: LORAZEPAM 0.5 MG TABLET PO PRN (19:43)
[2022-03-04] MEDS: ACETAMINOPHEN 325 MG TABLET PO PRN (19:43)
[2022-03-04 20:50] VITALS: BP 144/76
[2022-03-04] MEDS: ATORVASTATIN 10 MG TABLET PO SCH (21:06)
[2022-03-05 07:12] LABS: BASOPHILS % (AUTO) 0.5 % (0.0-2.0); EOSINOPHILS % (AUTO) 5.6 % (0.0-6.0); HEMATOCRIT 36 % (33-45); HEMOGLOBIN 12.2 g/dL (11.5-14.8); LYMPHOCYTES # (AUTO) 1.3 K/uL (0.8-4.8); LYMPHOCYTES % (AUTO) 24.1 % (20.0-44.0); MEAN CORPUSCULAR HGB CONC 34 g/dl (31.0-36.0); MEAN CORPUSCULAR VOLUME 97 fL (82-100); MONOCYTES # (AUTO) 0.6 K/uL (0.1-1.30); MONOCYTES % (AUTO) 11.6 % (2.0-12.0); NEUTROPHILS # (AUTO) 3.2 K/uL (1.8-8.9); NEUTROPHILS % (AUTO) 58.2 % (43.0-81.0); PLATELET COUNT (AUTO) 265 K/uL (150-450); RED BLOOD CELL COUNT(AUTO) 3.76 MIL/uL (4.0-5.2); WHITE BLOOD COUNT (AUTO) 5.5 K/uL (4.3-11.0)
[2022-03-05 07:34] LABS: VALPROIC ACID 47 ug/mL (50-100)
[2022-03-05 07:37] LABS: ALANINE AMINOTRANSFERASE 14 U/L (12-78); ALKALINE PHOSPHATASE 67 U/L (46-116); ASPARTATE AMINOTRANSFERASE 14 U/L (15-37); BILIRUBIN,TOTAL 0.5 mg/dL (0.2-1.0); CALCIUM, SERUM 8.6 mg/dL (8.5-10.1); CARBON DIOXIDE 29 mmol/L (21-32); CHLORIDE 104 mmol/L (98-107); CREATININE 0.7 mg/dL (0.6-1.3); GLUCOSE 100 mg/dL (74-106); POTASSIUM 3.8 mmol/L (3.5-5.1); SODIUM SERUM 139 mmol/L (136-145); TOTAL PROTEIN, SERUM 6.5 g/dL (6.4-8.2); UREA NITROGEN, BLOOD 20 mg/dL (7-18)
[2022-03-05] MEDS: LEVOTHYROXINE SODIUM 50 MCG TABLET PO SCH (07:53)
[2022-03-05 08:00] VITALS: BP 128/58
--- NOTE | 2022-03-05 08:04 | NUR ---
SW Discharge Note: Patient will be discharged to [facility] located at [address] [place] [address]; ([phone]). Facility will provide transportation at 2PM. Angie cohen ([phone]) is aware and agreeable of pt coming to the facility. Patients son Jerald ([phone]) is aware and agreeable. Pt is alert and oriented x1. Pt denies visual/auditory hallucinations. Pt denies suicidal or homicidal ideation. Pt will follow up with (Environmental Science Program Director) Dr. Lynn at the facility located at [address] [place] [address]; ([phone]). Pt will follow up with Psychiatrist Dr. Andrade located at [address] [place] [address]; ([phone]) at the facility. Pt presents with euthymic mood and congruent affect.
[2022-03-05] MEDS: ENSURE ENLIVE CHOC 237 ML CAN PO SCH ×2 (08:50→16:04)
[2022-03-05] MEDS: QUETIAPINE FUMARATE 25 MG TABLET PO SCH ×3 (08:55→16:03)
[2022-03-05] MEDS: DIVALPROEX SODIUM 125 MG CAP.SPRINK PO SCH ×3 (08:55→16:03)
[2022-03-05] MEDS: MEMANTINE HCL 5 MG TABLET PO SCH ×2 (08:55→16:03)
[2022-03-05] MEDS: DOCUSATE SODIUM 100 MG CAPSULE PO SCH (08:55)
[2022-03-05] MEDS: PANTOPRAZOLE 40 MG TABLET.DR PO SCH (08:55)
[2022-03-05] MEDS: Z GUARD REMEDY 4 OZ OINT TP SCH (08:57)
[2022-03-05] MEDS: SERTRALINE HCL 25 MG TABLET PO SCH (12:22)
[2022-03-05] MEDS: LORAZEPAM 0.5 MG TABLET PO PRN (13:59)
--- NOTE | 2022-03-05 14:03 | NUR ---
GPS RN NOTE PT NOTED WITH EPISODES OF AGITATION AND RESTLESSNESS. PT KEPT SCREAMING AND BANGING HER HANDS ON THE GERICHAIR. CALMLY REDIRECTED PT BUT INEFFECTIVE. ATIVAN 0.5MG 1 TAB PO GIVEN ORDERED PRN Q6HRS. WILL MONITOR AND REASSESS PT.
--- NOTE | 2022-03-05 16:34 | NUR ---
GPS POWERHOUSE ATTENDANT NOTE PT DISCHARGED TO [facility] IN STABLE CONDITION. PT A/O X1, CONFUSED, REORIENTED AND REDIRECTED PT NEEDED. ON RA, TOLERATING WELL WITH SPO2 AT 96%. NO SOB NOTED. NOT IN ANY SIGN OF RESPIRATORY DISTRESS. VITAL SIGNS TAKEN, STABLE, AND RECORDED. PT DENIES SI, HI, AVH. ALL BELONGINGS ACCOUNTED FOR. PT HAS NO IV ACCESS. REPORT GIVEN EARLIER TO PHILOMENA, HELICOPTER ENGINEER OF [facility]. DISCHARGED INSTRUCTIONS AND HEALTH TEACHINGS GIVEN TO PHILOMENA AND MADE HIM AWARE THAT PT IS TOTAL CARE, FALL RISK, AND NEEDS ASSISSTANCE WITH ADLS, PHILOMENA VERBALIZED UNDERSTANDING. PT WAS PICKED UP BY PHILOMENA AND LEFT THE UNIT AT 1625 VIA WHEELCHAIR, ACCOMPANIED BY THE MACHINE OPERATOR SLITTER TECHNICIANERNESTO. SANTAMARIA AND CHARGED NURSE AWARE OF DISCHARGED.
== END 2022-03-05 16:15 | DRG 885 ==
LOC: ER 15:23 → GPS 18:56
PROVIDERS: ADMIT Psychiatry & Neurology Psychosomatic Medicine; ATTEND Student in an Organized Health Care Education/Training Program
DX: F29 Unspecified psychosis not due to a substance or known physiological condition (principal); E87.1 Hypo-osmolality and hyponatremia; N39.0 Urinary tract infection, site not specified; F02.818 Dementia in other diseases classified elsewhere, unspecified severity, with other behavioral disturbance; R45.851 Suicidal ideations; G30.9 Alzheimer's disease, unspecified; E03.9 Hypothyroidism, unspecified; Z86.711 Personal history of pulmonary embolism; R73.9 Hyperglycemia, unspecified; B96.20 Unspecified Escherichia coli [E. coli] as the cause of diseases classified elsewhere; E78.5 Hyperlipidemia, unspecified; Z20.822 Contact with and (suspected) exposure to COVID-19
CPT/HCPCS: 36415; 71045-TC; 74018; 80048-TC; 80053-TC; 80061-TC; 80076-TC; 80164-TC; 81001; 82140-TC; 82962-TC; 84443-TC; 85025-TC; 87081-TC; 87086-TC; 87186-TC; 97116-TC; 97530-TC; C9803; G0480; Q2036

== ENCOUNTER 2022-03-06 21:28 | Inpatient (IN) | payer MEDICARE ==
[~2022-03-06] VITALS: Ht 160 cm; Wt 58.1 kg
[~2022-03-06 21:28] MED LIST changes: +ATOR20TA PO; +DIVA125T32 PO; +LEVO50TA8 PO; +LOPE2TAB23 PO; +LORA-258 PO; +ONDA-97 PO; +PANT40TA49 PO; +QUET25TA PO; +TRAZ-182 PO; +VALE500C PO; -[UNRECOGNIZED DRUG - REMARK]
--- NOTE | 2022-03-06 21:55 | NUR ---
PT BIBCARE MEMBERSHIP COORDINATOR FROM [facility]. PT AAOX1 BREATHING EVENLY AND UNLABORED. PT CHANGED INTO GOWN AND ATTACHED TO MONITOR AND POX. WILL CONTINUE TO MONITOR.
--- NOTE | 2022-03-06 22:04 | NUR ---
KLARISSAJEAN-PIERRE JEM: [phone] [facility]: [phone] [id number] [address]
[2022-03-06 22:11] LABS: BASOPHILS # (AUTO) 0.1 K/uL (0.0-0.2); BASOPHILS % (AUTO) 1.7 % (0.0-2.0); EOSINOPHILS % (AUTO) 4.8 % (0.0-6.0); HEMATOCRIT 38 % (33-45); HEMOGLOBIN 12.8 g/dL (11.5-14.8); LYMPHOCYTES # (AUTO) 1.9 K/uL (0.8-4.8); LYMPHOCYTES % (AUTO) 27.2 % (20.0-44.0); MEAN CORPUSCULAR HGB CONC 34 g/dl (31.0-36.0); MEAN CORPUSCULAR VOLUME 97 fL (82-100); MONOCYTES # (AUTO) 0.8 K/uL (0.1-1.30); MONOCYTES % (AUTO) 11.8 % (2.0-12.0); NEUTROPHILS # (AUTO) 3.8 K/uL (1.8-8.9); NEUTROPHILS % (AUTO) 54.5 % (43.0-81.0); PLATELET COUNT (AUTO) 265 K/uL (150-450); RED BLOOD CELL COUNT(AUTO) 3.93 MIL/uL (4.0-5.2); WHITE BLOOD COUNT (AUTO) 7.1 K/uL (4.3-11.0)
[2022-03-06] MEDS ORDERED: LORAZEPAM INJ 2 MG/ML VIAL ONE (22:35)
[2022-03-06] MEDS ORDERED: LORAZEPAM INJ 2 MG/ML VIAL IM ONE (23:00)
[2022-03-06 23:26] LABS: ALANINE AMINOTRANSFERASE 15 U/L (12-78); ALBUMIN 3.3 g/dL (3.4-5.0); ALCOHOL, BLOOD < 3 mg/dL (0-0); ALKALINE PHOSPHATASE 80 U/L (46-116); ASPARTATE AMINOTRANSFERASE 11 U/L (15-37); BILIRUBIN,DIRECT 0.1 mg/dL (0.0-0.2); BILIRUBIN,TOTAL 0.2 mg/dL (0.2-1.0); CALCIUM, SERUM 9.3 mg/dL (8.5-10.1); CARBON DIOXIDE 31 mmol/L (21-32); CHLORIDE 105 mmol/L (98-107); GLUCOSE 132 mg/dL (74-106); POTASSIUM 4.3 mmol/L (3.5-5.1); SODIUM SERUM 141 mmol/L (136-145); TOTAL PROTEIN, SERUM 7.1 g/dL (6.4-8.2); UREA NITROGEN, BLOOD 32 mg/dL (7-18)
[2022-03-06 23:29] LABS: ACETAMINOPHEN 0 ug/ml (10-30)
--- NOTE | 2022-03-06 23:49 | NUR ---
URINE COLLECTED AND SENT TO LAB
[2022-03-07] MEDS ORDERED: LORAZEPAM INJ 2 MG/ML VIAL IM ONE
--- NOTE | 2022-03-07 00:19 | NUR ---
SECOND DOSE OF 0.5MG ATIVAN HELD. PT SLEEPING, ATTACHED TO MONITOR, NAD NOTED
[2022-03-07 00:24] LABS: BILIRUBIN,URINE NEGATIVE (NEGATIVE); COLOR,URINE YELLOW (YELLOW); LEUKOCYTE ESTERASE ,URINE LARGE (NEGATIVE); NITRITE, URINE NEGATIVE (NEGATIVE); PROTEIN,URINE TRACE mg/dl (NEGATIVE); UGLUCOSE NEGATIVE (NEGATIVE)
--- NOTE | 2022-03-07 01:14 | NUR ---
PT SLEEPING COMFORTABLY, ATTACHED TO MONITOR AND POX.
--- NOTE | 2022-03-07 01:32 | NUR ---
NARCISO - CRISIS TEAM- PAGED FOR EVAL.
[2022-03-07] MEDS ORDERED: NITROFURANTOIN/MONOHYDRATE MACROCRYSTALS 100 MG CAPSULE PO ONE (02:30)
--- NOTE | 2022-03-07 03:55 | NUR ---
NARCISO LIN AT BEDSIDE FOR EVAL.
--- NOTE | 2022-03-07 05:07 | NUR ---
REPORT GIVEN TO NOVEM
[2022-03-07] MEDS ORDERED: NITROFURANTOIN/MONOHYDRATE MACROCRYSTALS 100 MG CAPSULE ONE (05:08)
--- NOTE | 2022-03-07 05:32 | NUR ---
PT WAS TRANSFERRED TO PSYCH UNIT IN STABLE CONDITION.
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
[2022-03-07] MEDS ORDERED: MAGNESIUM HYDROXIDE 30 ML UDC PO PRN (06:00)
[2022-03-07] MEDS ORDERED: BLOOD SUGAR DIAGNOSTIC 1 EACH STRIP IN ONE (06:00)
[2022-03-07] MEDS ORDERED: MAG HYDROX/AL HYDROX/SIMETH 30 ML UDC PO PRN (06:00)
[2022-03-07] MEDS: LEVOTHYROXINE SODIUM 50 MCG TABLET PO SCH (06:29)
--- NOTE | 2022-03-07 06:32 | NUR ---
RN NOTES; PT REFUSED SYNTHROID 50MCG.
[2022-03-07] MEDS ORDERED: ONDANSETRON 4 MG TAB.RAPDIS PO PRN (07:00)
[2022-03-07 07:40] LABS: BACTERIA,URINE Many /HPF (None Seen)
[2022-03-07 07:41] LABS: CALCIUM OXALATE CRYSTALS,UR Moderate /HPF (None Seen); SQUAMOUS EPITHELIAL CELL,UR Few /HPF (None Seen)
[2022-03-07 08:00] VITALS: BP 113/54
[2022-03-07] MEDS: PANTOPRAZOLE 40 MG TABLET.DR PO SCH (09:02)
[2022-03-07] MEDS: CEPHALEXIN MONOHYDRATE 500 MG CAPSULE PO SCH ×2 (09:02→21:51)
--- NOTE | 2022-03-07 09:52 | NUR ---
CORI Initial Discharge Plan: Patient will be discharged to [facility] located at [address] [place] [address]; ([phone]). CORI will contact Angie cohen to see if pt is welcomed back. CORI will discuss with ivet Marques ([phone]). CORI will work with the MD, treatment team, and family to help coordinate appropriate discharge.
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
--- NOTE | 2022-03-07 09:59 | NUR ---
Treatment Plan: Pt unable to sign treatment plan due to confusion.
--- NOTE | 2022-03-07 10:21 | NUR ---
CORI Family Contact: CORI spoke with patient's son Jerald ([phone]) and discussed pt's treatment/discharge plan. SW recommended pt to go to a higher level of care (SNF). Son stated that he will think about it and will let this marketing copywriter know if he is agreeable. If not, he would want pt back to [facility].
[2022-03-07 16:00] VITALS: BP 146/99
[2022-03-07] MEDS: DIVALPROEX SODIUM 125 MG CAP.SPRINK PO SCH ×2 (16:52→21:51)
[2022-03-07] MEDS: QUETIAPINE FUMARATE 25 MG TABLET PO SCH ×2 (16:52→21:52)
--- NOTE | 2022-03-07 18:07 | NUR ---
RN Closing Report. Patient AOx1, not able to express her concerns. Patient was anxious throughout shift, stating she has much to do at home, she has to go home and take care of her kids. Patient rubbing her face, scratching head and continued speaking making no sense. All safety precautions taken with patient, was supervised throughout shift since she tried to walk and get out of unit. Patient remained safe, will endorse report to night nurse.
--- NOTE | 2022-03-07 19:30 | NUR ---
GPS RN NOTE, RECEIVED PATIENT AWAKE AND IN BED, NO S/S OR COMPLAINTS OF PAIN AT THIS TIME. PATIENT IS DISPLAYING NO S/S OF APPARENT DISTRESS AT THIS TIME. PATIENT BREATHING IS UNLABORED WITH EQUAL RISE AND FALL OF THE CHEST. PATIENT IS ALERT AND ORIENTED X 1 ON ROOM AIR WITH A SPO2 93%. PATIENT IS COMPLIANT WITH MEDICATIONS, CONFUSED, ANXIOUS, HYPERVERBAL, UNPREDICTABLE, AND UNCOOPERATIVE. PATIENT DENIES SUICIDAL AND HOMICIDAL IDEATIONS AT THIS TIME. PATIENT ASSISTED WITH TURNING AND REPOSITIONING Q2HR AND PRN FOR COMFORT AND CIRCULATION. PATIENT HAS NO NEEDS AT THIS TIME. PATIENT EDUCATED ON THE USE OF THE CALL REES. PATIENT BED SIDE RAILS UP X 2 FOR SAFETY. PATIENT BED IS LOCKED, LOW, WITH BED ALARM ON. WILL CONTINUE TO MONITOR THIS PATIENT Q15 MINUTES WITH THE HELP OF STAFF TO MAINTAIN SAFETY.
[2022-03-07 20:00] VITALS: BP 132/64
[2022-03-07] MEDS: ATORVASTATIN 10 MG TABLET PO SCH (21:51)
[2022-03-08] MEDS: TEMAZEPAM 7.5 MG CAPSULE PO PRN (01:11)
[2022-03-08] MEDS: ACETAMINOPHEN 325 MG TABLET PO PRN (01:11)
--- NOTE | 2022-03-08 01:11 | NUR ---
GPS RN NOTE, PATIENT HAS A COMPLAINT OF A HEADACHE AT 2 OUT OF 10 ON THE PAIN SCALE AND IS REQUESTING TYLENOL AT THIS TIME. PATIENT VITAL SIGNS ARE STABLE. GAVE TYLENOL 650 MG PO Q6HR PRN ORDERED. WILL REASSESS FOR PAIN AND I WILL CONTINUE TO MONITOR THIS PATIENT WITH THE HELP OF STAFF.
--- NOTE | 2022-03-08 01:11 | NUR ---
GPS RN NOTE, PATIENT HAS A COMPLAINT OF NOT BEING ABLE TO SLEEP AND IS REQUESTING RESTORIL AT THIS TIME. PATIENT VITAL SIGN ARE STABLE. GAVE RESTORIL 7.5MG PO HS PRN ORDERED. WILL REASSESS FOR INSOMNIA AND I WILL CONTINUE TO MONITOR THIS PATIENT WITH THE HELP OF STAFF.
[2022-03-08 07:58] LABS: CHOLESTEROL 133 mg/dL (<200); HDL CHOLESTEROL 42 mg/dL (40-60); LDL 85 mg/dL (0-99); TRIGLYCERIDES 75 mg/dL (30-150)
[2022-03-08 08:00] VITALS: BP 113/60
[2022-03-08 08:09] LABS: ALBUMIN 3.3 g/dL (3.4-5.0); BILIRUBIN,TOTAL 0.3 mg/dL (0.2-1.0); CREATININE 0.8 mg/dL (0.6-1.3); POTASSIUM 3.9 mmol/L (3.5-5.1); TOTAL PROTEIN, SERUM 7.2 g/dL (6.4-8.2)
[2022-03-08 08:53] LABS: CREATININE 0.8 mg/dL (0.6-1.3)
[2022-03-08] MEDS: LEVOTHYROXINE SODIUM 50 MCG TABLET PO SCH (09:36)
[2022-03-08] MEDS: PANTOPRAZOLE 40 MG TABLET.DR PO SCH (09:36)
[2022-03-08] MEDS: QUETIAPINE FUMARATE 25 MG TABLET PO SCH ×4 (09:37→22:16)
[2022-03-08] MEDS: DIVALPROEX SODIUM 125 MG CAP.SPRINK PO SCH ×3 (09:37→21:54)
[2022-03-08] MEDS: CEPHALEXIN MONOHYDRATE 500 MG CAPSULE PO SCH ×2 (09:37→21:53)
[2022-03-08] MEDS: ENSURE ENLIVE CHOC 237 ML CAN PO SCH ×2 (13:12→17:34)
[2022-03-08 16:00] VITALS: BP 112/80
[2022-03-08 20:57] VITALS: BP 141/60
[2022-03-08] MEDS: ATORVASTATIN 10 MG TABLET PO SCH (21:52)
[2022-03-09] MEDS: TEMAZEPAM 7.5 MG CAPSULE PO PRN ×2 (00:30→23:25)
--- NOTE | 2022-03-09 01:30 | NUR ---
SUPERVISOR BLUEPRINTING AND PHOTOCOPY NOTES: GIVEN RESTORIL 7.5 MG TAB PRN FOR INSOMNIA. EFFECTIVE. PT SLEEPING AT THIS TIME. NO S/SX OF ACUTE DISTRESS NOTED. WILL CONTINUE TO MONITOR CLOSELY.
[2022-03-09 08:00] VITALS: BP 129/62
[2022-03-09] MEDS: ENSURE ENLIVE CHOC 237 ML CAN PO SCH ×3 (08:56→17:33)
[2022-03-09] MEDS: QUETIAPINE FUMARATE 25 MG TABLET PO SCH ×4 (08:58→21:08)
[2022-03-09] MEDS: CEPHALEXIN MONOHYDRATE 500 MG CAPSULE PO SCH ×2 (08:58→21:08)
[2022-03-09] MEDS: LEVOTHYROXINE SODIUM 50 MCG TABLET PO SCH (08:59)
[2022-03-09] MEDS: PANTOPRAZOLE 40 MG TABLET.DR PO SCH (08:59)
[2022-03-09] MEDS: DIVALPROEX SODIUM 125 MG CAP.SPRINK PO SCH ×3 (08:59→21:06)
[2022-03-09 16:00] VITALS: BP 147/73
[2022-03-09] MEDS: ATORVASTATIN 10 MG TABLET PO SCH (21:07)
[2022-03-10 08:00] VITALS: BP 99/59
[2022-03-10] MEDS: PANTOPRAZOLE 40 MG TABLET.DR PO SCH (08:28)
[2022-03-10] MEDS: ENSURE ENLIVE CHOC 237 ML CAN PO SCH ×3 (08:28→17:11)
[2022-03-10] MEDS: LEVOTHYROXINE SODIUM 50 MCG TABLET PO SCH (08:28)
[2022-03-10] MEDS: CEPHALEXIN MONOHYDRATE 500 MG CAPSULE PO SCH ×2 (08:28→21:31)
[2022-03-10] MEDS: QUETIAPINE FUMARATE 25 MG TABLET PO SCH ×5 (08:28→21:32)
[2022-03-10] MEDS: DIVALPROEX SODIUM 125 MG CAP.SPRINK PO SCH ×4 (08:28→21:30)
[2022-03-10 16:00] VITALS: BP 120/59
[2022-03-10] MEDS: ATORVASTATIN 10 MG TABLET PO SCH (21:31)
[2022-03-10] MEDS: TEMAZEPAM 7.5 MG CAPSULE PO PRN (23:03)
--- NOTE | 2022-03-10 23:04 | NUR ---
Pt unable to sleep. Least restrictive measures ineffective. Restoril 7.5 mg po prn given as ordered. Will continue to monitor.
--- NOTE | 2022-03-11 00:18 | NUR ---
Post 1 hr Restoril effective. Pt asleep in bed easy to arouse. Frequent visual check done for safety. Will continue to monitor. Will endorse to next shift.
[2022-03-11] MEDS: LEVOTHYROXINE SODIUM 50 MCG TABLET PO SCH (07:26)
[2022-03-11] MEDS: PANTOPRAZOLE 40 MG TABLET.DR PO SCH (07:35)
[2022-03-11 08:00] VITALS: BP 121/56
[2022-03-11] MEDS: QUETIAPINE FUMARATE 25 MG TABLET PO SCH ×4 (08:12→21:26)
[2022-03-11] MEDS: DIVALPROEX SODIUM 125 MG CAP.SPRINK PO SCH ×3 (08:13→20:48)
[2022-03-11] MEDS: CEPHALEXIN MONOHYDRATE 500 MG CAPSULE PO SCH ×2 (08:13→20:45)
[2022-03-11] MEDS: ENSURE ENLIVE CHOC 237 ML CAN PO SCH ×3 (08:13→16:01)
--- NOTE | 2022-03-11 13:25 | NUR ---
RN-CO: PATIENT IS IN THE DINING ROOM, MUMBLING TO SELF MOST OF THE TIME. CONFUSED, TEARFUL AT TIMES. SHE NEEDS CONSTANT REASSURANCE. I WILL CONTINUE TO MONITOR AND ASSIST HER IN ADL.
--- NOTE | 2022-03-11 15:41 | NUR ---
RN-CO: Noted wound on right toe, no secretion noted, pink periwound. Patient is on Keflex since 03/07/22. Cleanse it with normal saline, pat dry and covered with dry dressing. Wound consult ordered.
--- NOTE | 2022-03-11 15:44 | NUR ---
CORI Family Contact: SW spoke with patient's son Jerald ([phone]) and discussed placement. He stated that he would want pt to go to a nursing facility for temporarily placement and then return back to [facility].
--- NOTE | 2022-03-11 15:45 | NUR ---
SNF Referral: CORI sent clinicals to [facility] ([phone]) to Denise ford for placement. SW sent H & P, progress notes, and medication list.
--- NOTE | 2022-03-11 16:01 | NUR ---
RN-CO: Patient refused vital signs, and Ensure this afternoon.
[2022-03-11] MEDS: ATORVASTATIN 10 MG TABLET PO SCH (21:26)
[2022-03-12] MEDS: TEMAZEPAM 7.5 MG CAPSULE PO PRN ×2 (02:30→21:45)
--- NOTE | 2022-03-12 04:45 | NUR ---
RN NOTE ORTHOPEDIC SHOES SALESPERSON MELISA NOTIFIED REGARDING PT. POOR PO INTAKE WITH ORDER OF DIETARY CONSULT NOTED AND CARRIED OUT.
--- NOTE | 2022-03-12 05:02 | NUR ---
RN NOTE: RELAYED TO KEISHA IBARRA REGARDING URINE CULTURE RESULTS. KEISHA IBARRA ORDERED CEFAZOLIN 2GM IM Q8HRS NOTED AND CARRIED OUT AND TO FOLLOW UP IN AM IF THEY WANT ID OR TRANSFER. WILL ENDORSE TO DAY SHIFT NURSE FOR CONTINUITY OF CARE.
[2022-03-12] MEDS ORDERED: CEFAZOLIN 2 GM ONE (05:43)
[2022-03-12] MEDS ORDERED: CEFAZOLIN 1 GM VIAL IM SCH (06:00)
[2022-03-12] MEDS ORDERED: WATER FOR INJECTION,STERILE 10 ML ONE (06:09)
[2022-03-12] MEDS: LEVOTHYROXINE SODIUM 50 MCG TABLET PO SCH (06:24)
--- NOTE | 2022-03-12 07:30 | NUR ---
RN OPENING NOTE PATIENT IS IN BED, ASLEEP BUT EASILY AROUSABLE. ALERT AND ORIENTED X 1. ON ROOM AIR, BREATHING UNLABORED AND NOT IN ANY FORM OF DISTRESS. DENIES SUICIDAL IDEATION. ALL HOSPITAL SAFETY PRECAUTIONS IN PLACE. WILL CONTINUE TO MONITOR THROUGHOUT SHIFT.
[2022-03-12 08:00] VITALS: BP 128/59
--- NOTE | 2022-03-12 08:00 | NUR ---
RN NOTE PATIENT REFUSED SKIN ASSESSMENT BY WOUND CARE NURSE.
--- NOTE | 2022-03-12 08:21 | NUR ---
WOUND CARE CONSULT: RECEIVED CONSULT FOR RT TOE. PT ADAMANTLY REFUSED SKIN ASSESSMENT. WILL SEE PT PT CONDITION PERMITS. CURRENT JOY SCORE IS 15.
[2022-03-12] MEDS ORDERED: ENSURE ENLIVE 237 ML LIQUID (VANILLA) PO SCH (09:00)
[2022-03-12] MEDS: DIVALPROEX SODIUM 125 MG CAP.SPRINK PO SCH ×3 (09:31→21:45)
[2022-03-12] MEDS: PANTOPRAZOLE 40 MG TABLET.DR PO SCH (09:31)
[2022-03-12] MEDS: QUETIAPINE FUMARATE 25 MG TABLET PO SCH ×4 (09:31→21:46)
[2022-03-12] MEDS: ENSURE ENLIVE CHOC 237 ML CAN PO SCH ×3 (09:32→17:02)
--- NOTE | 2022-03-12 11:35 | NUR ---
RN NOTE PATIENT OBSERVED TO BE CRYING AND STATED "I WANT TO KILL MYSELF. I DON'T DESERVE TO LIVE." WILL CONTINUE TO MONITOR PATIENT FOR SAFETY.
--- NOTE | 2022-03-12 12:05 | NUR ---
SNF Contact: SW received a call from [facility] ([phone]) to Denise and admin Clary who stated that pt is accepted.
--- NOTE | 2022-03-12 13:25 | NUR ---
[facility] Family Contact: SW spoke with patient's son Jerald ([phone]) and notified pt is accepted at [facility] and left a detailed voicemail.
[2022-03-12] MEDS: CEFTRIAXONE 1 G VIAL IM SCH (14:04)
[2022-03-12] MEDS: LORAZEPAM 0.5 MG TABLET PO PRN ×2 (14:17→23:32)
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
--- NOTE | 2022-03-12 15:15 | NUR ---
RN NOTE PATIENT APPEARS CALMER BUT IS STILL CRYING AND APPEARS TO BE MUMBLING WORDS TO HERSELF.
[2022-03-12 16:00] VITALS: BP 115/62
[2022-03-12 16:20] VITALS: BP 115/62
--- NOTE | 2022-03-12 18:54 | NUR ---
RN CLOSING NOTE PATIENT'S VITAL SIGNS REMAINED STABLE THROUGHOUT SHIFT. PATIENT IS CALM, WITHDRAWN, ISOLATIVE. PATIENT IS COMPLIANT WITH MEDS, EPISODES OF AGITATION AND RESTLESSNESS OBSERVED THROUGHOUT SHIFT. VERBALIZED SUICIDAL IDEATION. ALL HOSPITAL SAFETY PRECAUTIONS IN PLACE. WILL ENDORSE TO SIX COLOR PRESS OPERATOR NURSE.
[2022-03-12 21:08] VITALS: BP 107/68
--- NOTE | 2022-03-12 21:45 | NUR ---
GPS RN NOTE PT UNABLE TO SLEEP, RESTORIL 7.5 MG PO GIVEN. FOR INSOMNIA. CONTINUE TO MONITOR HER.
[2022-03-12] MEDS: ATORVASTATIN 10 MG TABLET PO SCH (21:46)
--- NOTE | 2022-03-12 23:30 | NUR ---
GPS RN NOTE PT STILL AWAKE. AND VERY RESTLESS AND AGITATED SITTING IN G/C. REPOSITION HER IN G/C AND ALSO KEPT HER DRY AND CLEAN. ATIVAN 0.5MG PO GIVEN. CONTINUE TO MONITOR HER.
--- NOTE | 2022-03-13 01:00 | NUR ---
GPS RN NOTE TRIED TWICE TO PUT PT IN HER BED BUT PT KEPT ON TRYING TO GET UP. PROVIDED HER CALM AND DARK ENVIRONMENT TO FACILITATE SLEEP, BUT DIDN'T WORKED. KEPT HER UNDER CLOSE SUPERVISION IN G/C.
[2022-03-13] MEDS: LEVOTHYROXINE SODIUM 50 MCG TABLET PO SCH (07:28)
[2022-03-13] MEDS: PANTOPRAZOLE 40 MG TABLET.DR PO SCH (07:29)
[2022-03-13] MEDS: DIVALPROEX SODIUM 125 MG CAP.SPRINK PO SCH ×3 (07:56→21:33)
[2022-03-13 08:00] VITALS: BP 142/59
[2022-03-13] MEDS: QUETIAPINE FUMARATE 25 MG TABLET PO SCH ×4 (08:33→21:35)
[2022-03-13] MEDS: ENSURE ENLIVE CHOC 237 ML CAN PO SCH ×3 (08:33→17:43)
--- NOTE | 2022-03-13 10:11 | NUR ---
WOUND CARE CONSULT: REDNESS AND DISCOLORATION NOTED TO RT GREAT TOE, PRESENT ON ADMISSION. DR MILLER NOTIFIED OF DPM CONSULT. IN AGREEMENT WITH PLAN OF CARE.
[2022-03-13] MEDS: CEFTRIAXONE 1 G VIAL IM SCH (13:13)
--- NOTE | 2022-03-13 13:37 | NUR ---
Court Hearing: Patient's court hearing for 0840 was today and it was upheld for GD.
--- NOTE | 2022-03-13 13:37 | NUR ---
Court Notification: CORI contacted patients ivet Marques ([phone]) and left a voicemail of [phone] hearing.
--- NOTE | 2022-03-13 14:54 | NUR ---
RN-CO: PATIENT WAS SEEN AND EXAMINED BY DR DEBBI STEPHENSON WITH ORDER OF RIGHT TOE X RAY ,NOTED. PER ROCEPHIN IS GOOD TO COVER FOR THE TOE INFECTION.
[2022-03-13] MEDS: ATORVASTATIN 10 MG TABLET PO SCH (21:33)
[2022-03-13] MEDS: TEMAZEPAM 7.5 MG CAPSULE PO PRN (23:40)
[2022-03-14] MEDS: LEVOTHYROXINE SODIUM 50 MCG TABLET PO SCH (06:24)
[2022-03-14] MEDS: PANTOPRAZOLE 40 MG TABLET.DR PO SCH (07:43)
[2022-03-14 08:00] VITALS: BP 125/50
[2022-03-14] MEDS: ENSURE ENLIVE CHOC 237 ML CAN PO SCH ×3 (08:29→17:31)
[2022-03-14] MEDS: DIVALPROEX SODIUM 125 MG CAP.SPRINK PO SCH ×3 (08:29→21:39)
[2022-03-14] MEDS: QUETIAPINE FUMARATE 25 MG TABLET PO SCH ×4 (08:29→21:39)
[2022-03-14] MEDS: MUPIROCIN OINT 2% 22 GM TUBE TP SCH (08:58)
[2022-03-14] MEDS: CEFTRIAXONE 1 G VIAL IM SCH (13:06)
[2022-03-14 16:00] VITALS: BP 90/76
[2022-03-14] MEDS: LORAZEPAM 0.5 MG TABLET PO PRN (18:28)
--- NOTE | 2022-03-14 18:32 | NUR ---
Pt noted very agitated and paranoid. PRN Ativan 0.5mg tab given ta 1827. will continue to monitor pt's safety and behavior.
[2022-03-14 20:00] VITALS: BP 154/88
--- NOTE | 2022-03-14 20:00 | NUR ---
ASSISTANT FOOD SERVICE MANAGER GPS NOTE RCVD PT IN THE HALLWAY IN GC- ALERT ORIENTED X 1, CONFUSED , DELUSIONAL. BREATHING EVEN AND UNLABORED @ RA, S/P 1 HR ATIVAN WAS GIVEN BY ENDORSING AM SHIF TNURSE FOR AGITATION AND ANXIETY- ANXIETY STILL NOTED, CONT TO MONITOR AND ANTICIPATE PT'S NEEDS, SAFETY AND COMFORT MEASURES MONITORED.
[2022-03-14] MEDS: ATORVASTATIN 10 MG TABLET PO SCH (21:39)
[2022-03-14] MEDS: TEMAZEPAM 7.5 MG CAPSULE PO PRN (23:30)
--- NOTE | 2022-03-14 23:31 | NUR ---
TAG MACHINE OPERATOR GPS NOTE PT STILL AWAKE , EPISODE OF INSOMNIA OBSERVED, PRN RESTORIL 7.5 MG GIVEN ORDERED, PT KEPT CLEAN AND DRY , REPOSITIONED. SAFETY MEASURES OBSERVED, WILL CONT TO MONITOR AND ANTICIPATE NEEDS.
--- NOTE | 2022-03-15 00:32 | NUR ---
STONECUTTER ASSISTANT GPS NOTE 1 HR POST RESTORIL - PT REMAINS AWAKE, CALM, CONT TO MONITOR ,PROVIDE QUIET ENVIRONMENT, KEPT CLEAN AND DRY, REPOSITIONED.
--- NOTE | 2022-03-15 05:57 | NUR ---
RECREATION FACILITY MANAGER GPS NOTE PT WAS MED COMPLIANT DURING SHIFT, CONFUSED, DELUSIONAL AND DISORGANIZED. INTERMITTENT SLEEP DURING SHIFT APPROX 3 HRS ON AND OFF SLEEP. AM CARE PROVIDED TO PT BY 2 PROFESSOR OF RADIOLOGY STAFF,KEPT PT CLEAN AND DRY , SAFETY MEASURES OBSERVED.
[2022-03-15] MEDS: LEVOTHYROXINE SODIUM 50 MCG TABLET PO SCH (06:23)
--- NOTE | 2022-03-15 06:28 | NUR ---
CRIMINAL COURT JUDGE CLOSING NOTE PT IN BED , SLEEPING, EASY TO AROUSE .TOLERATED AM CARE, ALL DUE MEDS GIVEN ORDERED. NO NINA DURING SHIFT, BED ALARM ON, SAFETY MEASURES NOTED. WILL ENDORSE CARE TO AM ONCOMING NURSE.
[2022-03-15] MEDS: PANTOPRAZOLE 40 MG TABLET.DR PO SCH (06:30)
[2022-03-15] MEDS: QUETIAPINE FUMARATE 25 MG TABLET PO SCH ×4 (07:57→23:05)
[2022-03-15] MEDS: DIVALPROEX SODIUM 125 MG CAP.SPRINK PO SCH ×3 (07:57→21:08)
[2022-03-15] MEDS: ENSURE ENLIVE CHOC 237 ML CAN PO SCH ×3 (07:57→17:15)
[2022-03-15 08:00] VITALS: BP 110/60
[2022-03-15] MEDS: MUPIROCIN OINT 2% 22 GM TUBE TP SCH (10:29)
[2022-03-15 16:00] VITALS: BP 94/50
--- NOTE | 2022-03-15 20:09 | NUR ---
RN NOTES:RECEIVED PATIENT SITTING UP IN CHAY CHAIR, NO S/SX OF ACUTE DISTRESS NOTED. PATIENT CONFUSED, ANXIOUS,FORGETFUL,HYPERVERBAL DISORGANIZED,GIVING INAPPROPRIATE ANSWER TO QUESTIONS, PARANOID, NONREDIRECTABLE,REFUSED GO BACK TO HER BED AT THIS TIME, NEEDS FREQUENT REDIRECTION. DENIES SI/HI AT THIS TIME.ENCOURAGE TO VERBALIZED ANY FEELING OR CONCERN, SAFETY MEASURES IN PLACE. WILL CONTINUE TO MONITOR Q15MIN ROUNDS FOR SAFETY AND BEHAVIOR.
[2022-03-15 21:03] VITALS: BP 131/63
[2022-03-15] MEDS: ATORVASTATIN 10 MG TABLET PO SCH (23:06)
[2022-03-16 08:00] VITALS: BP 113/52
[2022-03-16] MEDS: ENSURE ENLIVE CHOC 237 ML CAN PO SCH ×3 (08:11→16:11)
[2022-03-16] MEDS: PANTOPRAZOLE 40 MG TABLET.DR PO SCH (08:13)
[2022-03-16] MEDS: QUETIAPINE FUMARATE 25 MG TABLET PO SCH ×4 (08:13→21:03)
[2022-03-16] MEDS: DIVALPROEX SODIUM 125 MG CAP.SPRINK PO SCH ×3 (08:13→21:03)
[2022-03-16] MEDS: LEVOTHYROXINE SODIUM 50 MCG TABLET PO SCH (08:13)
[2022-03-16] MEDS: MUPIROCIN OINT 2% 22 GM TUBE TP SCH (08:14)
[2022-03-16] MEDS: LORAZEPAM 0.5 MG TABLET PO PRN (08:58)
[2022-03-16 16:00] VITALS: BP 119/76
--- NOTE | 2022-03-16 20:29 | NUR ---
RN NOTES:RECEIVED PATIENT SITTING UP IN CHAY CHAIR, NO S/SX OF ACUTE DISTRESS NOTED. PATIENT ANXIOUS, CONFUSED, ANXIOUS,FORGETFUL,HYPERVERBAL DISORGANIZED,GIVING INAPPROPRIATE ANSWER TO QUESTIONS, PARANOID, NONREDIRECTABLE,REFUSED GO BACK TO HER BED AT THIS TIME, NEEDS FREQUENT REDIRECTION. DENIES SI/HI AT THIS TIME.ENCOURAGE TO VERBALIZED ANY FEELING OR CONCERN, SAFETY MEASURES IN PLACE. WILL CONTINUE TO MONITOR Q15MIN ROUNDS FOR SAFETY AND BEHAVIOR.
[2022-03-16 20:33] VITALS: BP 129/72
[2022-03-16] MEDS: ATORVASTATIN 10 MG TABLET PO SCH (21:03)
--- NOTE | 2022-03-17 06:12 | NUR ---
RN NOTES: PT. REFUSED SKIN ASSESSMENT PT. BEHAVIOR UNCOOPERTIVE AGGRESSIVE ,YELLING SCRAMING, KICKING HITTING THE STAFF MEMBERS, WHEN WAS HYGIENE ACTIVITIES OF DAILY LIVING ,CHANGING AND CLEANING THE PATIENT .
[2022-03-17] MEDS ORDERED: Z GUARD REMEDY 4 OZ OINT TP PRN (07:00)
[2022-03-17 08:00] VITALS: BP 139/66
[2022-03-17] MEDS: ENSURE ENLIVE CHOC 237 ML CAN PO SCH ×3 (08:15→17:42)
[2022-03-17] MEDS: QUETIAPINE FUMARATE 25 MG TABLET PO SCH ×3 (08:18→17:43)
[2022-03-17] MEDS: DIVALPROEX SODIUM 125 MG CAP.SPRINK PO SCH ×3 (08:18→21:01)
[2022-03-17] MEDS: PANTOPRAZOLE 40 MG TABLET.DR PO SCH (08:18)
[2022-03-17] MEDS: LEVOTHYROXINE SODIUM 50 MCG TABLET PO SCH (08:18)
[2022-03-17] MEDS: MUPIROCIN OINT 2% 22 GM TUBE TP SCH (08:24)
[2022-03-17] MEDS: Z GUARD REMEDY 4 OZ OINT TP SCH (08:24)
[2022-03-17 16:00] VITALS: BP 104/61
[2022-03-17 20:11] VITALS: BP 130/66
[2022-03-17] MEDS: ATORVASTATIN 10 MG TABLET PO SCH (21:37)
[2022-03-17] MEDS ORDERED: QUETIAPINE FUMARATE 100 MG TABLET PO SCH (22:00)
[2022-03-18] MEDS: PANTOPRAZOLE 40 MG TABLET.DR PO SCH (07:30)
[2022-03-18] MEDS: LEVOTHYROXINE SODIUM 50 MCG TABLET PO SCH (07:41)
[2022-03-18 08:00] VITALS: BP 112/61
[2022-03-18] MEDS: DIVALPROEX SODIUM 125 MG CAP.SPRINK PO SCH ×3 (08:33→20:11)
[2022-03-18] MEDS: ENSURE ENLIVE CHOC 237 ML CAN PO SCH ×3 (08:52→16:11)
[2022-03-18] MEDS: MUPIROCIN OINT 2% 22 GM TUBE TP SCH (08:53)
[2022-03-18] MEDS: Z GUARD REMEDY 4 OZ OINT TP SCH (08:54)
[2022-03-18] MEDS: QUETIAPINE FUMARATE 25 MG TABLET PO SCH ×3 (09:19→16:11)
[2022-03-18] MEDS: LORAZEPAM 0.5 MG TABLET PO PRN (19:41)
--- NOTE | 2022-03-18 19:45 | NUR ---
NURSE NOTE: PT VERY AGITATED. POUNDING ON TABLE, YELLING OUT LOUD. ATIVAN PO ADMINISTERED ORDERED. WILL CONT TO MONITOR.
--- NOTE | 2022-03-18 20:45 | NUR ---
NURSE NOTE: PT CONT AGITATED. TRYING TO REDIRECT, BUT PT CONT UPSET AT THIS TIME. WILL ATTEMPT CALMING MEASURE. WILL CONT TO MONITOR.
--- NOTE | 2022-03-18 21:45 | NUR ---
NURSE NOTE: PT CALM AT THIS TIME. LAYING IN BED. CALMING MEASURES EFFECTIVE. WILL CONT TO MONITOR.
[2022-03-18] MEDS ORDERED: QUETIAPINE FUMARATE 100 MG TABLET PO SCH (22:00)
[2022-03-18] MEDS: ATORVASTATIN 10 MG TABLET PO SCH (22:28)
[2022-03-18] MEDS: TEMAZEPAM 7.5 MG CAPSULE PO PRN (23:50)
--- NOTE | 2022-03-18 23:50 | NUR ---
NURSE NOTE: PT WOKE UP. TRYING TO CLIMB OUT OF BED. RESTORIL PO ADMINISTERED ORDERED TO HELP HER GO TO SLEEP. WILL CONT TO MONITOR.
--- NOTE | 2022-03-19 00:50 | NUR ---
NURSE NOTE: PT SLEEPING AT THIS TIME. RESTORIL EFFECTIVE AT THIS TIME. WILL CONT TO MONITOR.
--- NOTE | 2022-03-19 07:00 | NUR ---
RN NOTES: RECEIVED PT IN BED.EASILY AROUSED WITH STIMULI.. NOS OB OR CARDIAC DISTRESS NOTED. DENIES NAY PAIN/DISCOMFORTS AT THIS TIME.SAFETY MEASURES MAINTAINED SIDE RAILS UP X 2. CALL LIGHT IN EASY REACH FOR HELP. WILL MONITOR PT ACCORDINGLY.
[2022-03-19] MEDS: PANTOPRAZOLE 40 MG TABLET.DR PO SCH (07:20)
[2022-03-19] MEDS: LEVOTHYROXINE SODIUM 50 MCG TABLET PO SCH (07:20)
[2022-03-19 08:00] VITALS: BP 128/62
[2022-03-19] MEDS: DIVALPROEX SODIUM 125 MG CAP.SPRINK PO SCH ×3 (08:49→20:40)
[2022-03-19] MEDS: ENSURE ENLIVE CHOC 237 ML CAN PO SCH ×3 (08:51→16:12)
--- NOTE | 2022-03-19 09:08 | NUR ---
CORI Family Contact: CORI spoke with patient's son Jerald ([phone]) and discussed the placement. CORI stated this fiction and nonfiction writer prose had left him a detailed voicemail in regards to pt being accepted at [facility]. He is agreeable of placement.
[2022-03-19] MEDS: MUPIROCIN OINT 2% 22 GM TUBE TP SCH (09:11)
[2022-03-19] MEDS: Z GUARD REMEDY 4 OZ OINT TP SCH (09:11)
[2022-03-19] MEDS: QUETIAPINE FUMARATE 25 MG TABLET PO SCH ×4 (09:20→16:12)
[2022-03-19 11:35] LABS: BASOPHILS % (AUTO) 0.4 % (0.0-2.0); EOSINOPHILS % (AUTO) 2.8 % (0.0-6.0); HEMATOCRIT 38 % (33-45); HEMOGLOBIN 12.7 g/dL (11.5-14.8); LYMPHOCYTES # (AUTO) 1.9 K/uL (0.8-4.8); MEAN CORPUSCULAR HGB CONC 33 g/dl (31.0-36.0); MEAN CORPUSCULAR VOLUME 98 fL (82-100); MONOCYTES # (AUTO) 0.8 K/uL (0.1-1.30); NEUTROPHILS % (AUTO) 57.8 % (43.0-81.0); PLATELET COUNT (AUTO) 233 K/uL (150-450); WHITE BLOOD COUNT (AUTO) 6.8 K/uL (4.3-11.0)
[2022-03-19 12:02] LABS: ALBUMIN 3.2 g/dL (3.4-5.0); BILIRUBIN,TOTAL 0.3 mg/dL (0.2-1.0); CALCIUM, SERUM 9.1 mg/dL (8.5-10.1); CREATININE 0.9 mg/dL (0.6-1.3); POTASSIUM 4.2 mmol/L (3.5-5.1); TOTAL PROTEIN, SERUM 7.1 g/dL (6.4-8.2)
[2022-03-19 16:13] VITALS: BP 120/60
--- NOTE | 2022-03-19 16:30 | NUR ---
RN NOTES: COLLECTED UA,CALLED LAB FOR TIRE SERVICE TECHNICIAN SPOKE TO DALLIN
[2022-03-19] MEDS: LORAZEPAM 0.5 MG TABLET PO PRN (17:37)
[2022-03-19 18:42] LABS: BILIRUBIN,URINE NEGATIVE (NEGATIVE); COLOR,URINE YELLOW (YELLOW); LEUKOCYTE ESTERASE ,URINE SMALL (NEGATIVE); NITRITE, URINE NEGATIVE (NEGATIVE); PH,URINE 7.5 (5.0-8.0); PROTEIN,URINE NEGATIVE (NEGATIVE); UGLUCOSE NEGATIVE (NEGATIVE); UROBILINOGEN,URINE 0.2 EU/dL (0.2)
[2022-03-19 19:05] LABS: BACTERIA,URINE Few /HPF (None Seen); RBC,URINE 0-2 /HPF (0-2)
[2022-03-19 19:06] LABS: SQUAMOUS EPITHELIAL CELL,UR Moderate /HPF (None Seen)
[2022-03-19 20:27] VITALS: BP 124/62
[2022-03-19] MEDS: ATORVASTATIN 10 MG TABLET PO SCH (20:40)
[2022-03-19] MEDS ORDERED: QUETIAPINE FUMARATE 100 MG TABLET PO SCH (22:00)
[2022-03-19] MEDS: TEMAZEPAM 7.5 MG CAPSULE PO PRN (23:58)
--- NOTE | 2022-03-20 02:15 | NUR ---
RN note: Patient had difficulty falling asleep,given Restoril 15 mg PO as ordered per clinical assessment .
--- NOTE | 2022-03-20 06:45 | NUR ---
RN note: Informed sap ppm consultant KEISHA Wilkinson through text message the urine test results.
[2022-03-20] MEDS: LEVOTHYROXINE SODIUM 50 MCG TABLET PO SCH (07:56)
[2022-03-20] MEDS: PANTOPRAZOLE 40 MG TABLET.DR PO SCH (07:56)
[2022-03-20 08:00] VITALS: BP 115/66
[2022-03-20] MEDS: DIVALPROEX SODIUM 125 MG CAP.SPRINK PO SCH ×3 (08:31→21:33)
[2022-03-20] MEDS: QUETIAPINE FUMARATE 25 MG TABLET PO SCH ×3 (08:31→17:06)
[2022-03-20] MEDS: ENSURE ENLIVE CHOC 237 ML CAN PO SCH ×3 (08:38→17:06)
[2022-03-20] MEDS: MUPIROCIN OINT 2% 22 GM TUBE TP SCH (09:40)
[2022-03-20] MEDS: Z GUARD REMEDY 4 OZ OINT TP SCH (09:41)
[2022-03-20 16:00] VITALS: BP 114/59
--- NOTE | 2022-03-20 17:29 | NUR ---
RN-NOTES PATIENT IN THE DAY ROOM UP IN THE CHAY CHAIR,AWAKE,A/O X1 GUARDED, NOTED WITH EPISODE OF SCREAMING AND YELLING.NEEDS FREQUENT REDIRECTIONS. ENCOURAGED AND ASSISTED DURING MEAL TIME ALSO ENCOURAGED TO INCREASE FOOD AND FLUID INTAKE. NO ACUTE DISTRESS NOTED .GOOD JANUARY CARE RENDERED. COMPLIANT WITH MEDICATIONS.NEEDS MAXIMUM ASSIST WITH ADL'S. ALL NEEDS ATTENDED AND ANTICIPATED. WILL CONT. MONITORING FOR SAFETY AND BEHAVIOR.WILL ENDORSE TO INCOMING NURSE FOR CONTINUITY OF CARE.
--- NOTE | 2022-03-20 17:31 | NUR ---
EKG NOT DONE ON TIME TO BEEN BUSY AT THE ER. Addendum: 03/20/22 at 1732 by AMY GALVEZ RT Amended: Links added.
--- NOTE | 2022-03-20 19:41 | NUR ---
GPS RN-NOTES RECEIVED PATIENT AWAKE SITTING IN THE CHAY CHAIR, A/O X1 GUARDED, NOTED PT CRYING AND YELLING. NEEDS FREQUENT REDIRECTIONS. NO ACUTE DISTRESS NOTED. GOOD JANUARY CARE RENDERED. COMPLIANT WITH MEDICATIONS. NEEDS MAXIMUM ASSIST WITH ADL'S. ALL NEEDS ATTENDED AND ANTICIPATED. MONITORING FOR SAFETY AND BEHAVIORAL CHANGES. WILL CONTINUE TO MONITOR THROUGHOUT THE SHIFT.
[2022-03-20 20:00] VITALS: BP 150/60
[2022-03-20] MEDS: ATORVASTATIN 10 MG TABLET PO SCH (21:33)
[2022-03-20] MEDS: TEMAZEPAM 7.5 MG CAPSULE PO PRN (21:34)
[2022-03-20] MEDS ORDERED: QUETIAPINE FUMARATE 100 MG TABLET PO SCH (22:00)
[2022-03-21] MEDS: LEVOTHYROXINE SODIUM 50 MCG TABLET PO SCH (06:08)
[2022-03-21] MEDS: PANTOPRAZOLE 40 MG TABLET.DR PO SCH (07:54)
[2022-03-21 08:00] VITALS: BP 105/62
[2022-03-21] MEDS: DIVALPROEX SODIUM 125 MG CAP.SPRINK PO SCH ×3 (08:19→20:50)
[2022-03-21] MEDS: ENSURE ENLIVE CHOC 237 ML CAN PO SCH ×3 (09:42→16:18)
[2022-03-21] MEDS: MUPIROCIN OINT 2% 22 GM TUBE TP SCH (09:43)
[2022-03-21] MEDS: Z GUARD REMEDY 4 OZ OINT TP SCH (09:44)
[2022-03-21] MEDS: QUETIAPINE FUMARATE 25 MG TABLET PO SCH ×3 (09:50→16:14)
[2022-03-21 16:00] VITALS: BP 136/66
[2022-03-21 20:00] VITALS: BP 128/56
--- NOTE | 2022-03-21 20:37 | NUR ---
RN NOTE: RECEIVED PATIENT SITTING UP IN CHAY CHAIR, NO S/SX OF ACUTE DISTRESS NOTED. PATIENT CONFUSED, ANXIOUS,FORGETFUL,HYPERVERBAL DISORGANIZED,GIVING INAPPROPRIATE ANSWER TO QUESTIONS, PARANOID, NONREDIRECTABLE,REFUSED GO BACK TO HER BED AT THIS TIME, NEEDS FREQUENT REDIRECTION. DENIES SI/HI AT THIS TIME.ENCOURAGE TO VERBALIZED ANY FEELING OR CONCERN, SAFETY MEASURES IN PLACE. WILL CONTINUE TO MONITOR Q15MIN ROUNDS FOR SAFETY AND BEHAVIOR.
[2022-03-21] MEDS: ATORVASTATIN 10 MG TABLET PO SCH (21:45)
[2022-03-21] MEDS ORDERED: QUETIAPINE FUMARATE 25 MG TABLET PO SCH (22:00)
--- NOTE | 2022-03-22 07:01 | NUR ---
RN NOTES: PT. REFUSED AM LABS DUE TO UNCOOPERTIVE, AGGRESSIVE, YELLING SCRAMING ENCOURAGED X 3 PT. STRONGLY REFUSED.
[2022-03-22 08:00] VITALS: BP 110/56
[2022-03-22] MEDS: LEVOTHYROXINE SODIUM 50 MCG TABLET PO SCH (08:13)
[2022-03-22] MEDS: DIVALPROEX SODIUM 125 MG CAP.SPRINK PO SCH ×2 (08:13→17:37)
[2022-03-22] MEDS: PANTOPRAZOLE 40 MG TABLET.DR PO SCH (08:13)
[2022-03-22] MEDS: QUETIAPINE FUMARATE 25 MG TABLET PO SCH ×2 (10:03→13:32)
[2022-03-22] MEDS: ENSURE ENLIVE CHOC 237 ML CAN PO SCH ×3 (10:03→17:37)
[2022-03-22] MEDS: MUPIROCIN OINT 2% 22 GM TUBE TP SCH (10:04)
[2022-03-22] MEDS: Z GUARD REMEDY 4 OZ OINT TP SCH (10:05)
[2022-03-22 12:44] LABS: CALCIUM, SERUM 8.4 mg/dL (8.5-10.1); CREATININE 0.7 mg/dL (0.6-1.3); POTASSIUM 3.9 mmol/L (3.5-5.1)
[2022-03-22 16:00] VITALS: BP 129/67
[2022-03-22] MEDS: risperiDONE 1 MG TABLET PO SCH (17:37)
--- NOTE | 2022-03-22 19:24 | NUR ---
RN-NOTES PATIENT IN BED ,AWAKE,A/O X1 GUARDED, NOTED WITH EPISODE OF SCREAMING AND YELLING,TALKING TO SELF.NEEDS FREQUENT REDIRECTIONS. ENCOURAGED AND ASSISTED DURING MEAL TIME ALSO ENCOURAGED TO INCREASE FOOD AND FLUID INTAKE. NO ACUTE DISTRESS NOTED .GOOD JANUARY CARE RENDERED. COMPLIANT WITH MEDICATIONS.NEEDS MAXIMUM ASSIST WITH ADL'S. ALL NEEDS ATTENDED AND ANTICIPATED. WILL CONT. MONITORING FOR SAFETY AND BEHAVIOR.WILL ENDORSE TO INCOMING NURSE FOR CONTINUITY OF CARE.
[2022-03-22 20:00] VITALS: BP 118/70
[2022-03-22] MEDS: ATORVASTATIN 10 MG TABLET PO SCH (21:43)
[2022-03-22] MEDS: risperiDONE 0.25 MG TABLET PO SCH (21:44)
[2022-03-23 08:00] VITALS: BP 121/57
[2022-03-23] MEDS: risperiDONE 1 MG TABLET PO SCH ×2 (09:09→16:17)
[2022-03-23] MEDS: PANTOPRAZOLE 40 MG TABLET.DR PO SCH (09:09)
[2022-03-23] MEDS: LEVOTHYROXINE SODIUM 50 MCG TABLET PO SCH (09:09)
[2022-03-23] MEDS: DIVALPROEX SODIUM 125 MG CAP.SPRINK PO SCH ×2 (09:10→16:16)
[2022-03-23] MEDS: ENSURE ENLIVE CHOC 237 ML CAN PO SCH ×3 (09:10→17:45)
[2022-03-23] MEDS: Z GUARD REMEDY 4 OZ OINT TP SCH (11:06)
[2022-03-23] MEDS: MUPIROCIN OINT 2% 22 GM TUBE TP SCH (11:07)
--- NOTE | 2022-03-23 11:30 | NUR ---
RN Notes: Received pt. asleep in bed, breathing is even and unlabored. Ate 10% for breakfast and due meds given. Morning care rendered and treatment done and pt. is resistive care. Pt. is irritable, talking to self, confused, disorganized and resistive to care. Pt. was reoriented to person, place, date, day and situation. Will continue to monitor for safety.
[2022-03-23 12:58] LABS: BASOPHILS % (AUTO) 0.4 % (0.0-2.0); EOSINOPHILS % (AUTO) 1.8 % (0.0-6.0); HEMATOCRIT 40 % (33-45); HEMOGLOBIN 13.1 g/dL (11.5-14.8); MEAN CORPUSCULAR HGB CONC 33 g/dl (31.0-36.0); MEAN CORPUSCULAR VOLUME 98 fL (82-100); MONOCYTES # (AUTO) 0.9 K/uL (0.1-1.30); MONOCYTES % (AUTO) 13.5 % (2.0-12.0); NEUTROPHILS % (AUTO) 56.3 % (43.0-81.0); PLATELET COUNT (AUTO) 242 K/uL (150-450); RED BLOOD CELL COUNT(AUTO) 4.07 MIL/uL (4.0-5.2)
[2022-03-23 13:21] LABS: BILIRUBIN,TOTAL 0.4 mg/dL (0.2-1.0); CALCIUM, SERUM 9.1 mg/dL (8.5-10.1); CREATININE 0.9 mg/dL (0.6-1.3); POTASSIUM 4.1 mmol/L (3.5-5.1); TOTAL PROTEIN, SERUM 6.9 g/dL (6.4-8.2)
--- NOTE | 2022-03-23 14:58 | NUR ---
In and out catheterization done to obtain urine. Pt. tolerated well.
[2022-03-23 16:00] VITALS: BP 116/84
[2022-03-23] MEDS: LORAZEPAM 0.5 MG TABLET PO PRN (16:17)
[2022-03-23 17:13] LABS: BILIRUBIN,URINE NEGATIVE (NEGATIVE); COLOR,URINE YELLOW (YELLOW); LEUKOCYTE ESTERASE ,URINE SMALL (NEGATIVE); NITRITE, URINE NEGATIVE (NEGATIVE); PROTEIN,URINE NEGATIVE (NEGATIVE); UGLUCOSE NEGATIVE (NEGATIVE); UROBILINOGEN,URINE 0.2 EU/dL (0.2)
[2022-03-23 17:36] LABS: BACTERIA,URINE 3+ /HPF (None Seen); RBC,URINE 0-2 /HPF (0-2); SQUAMOUS EPITHELIAL CELL,UR 0-2 /HPF (None Seen); WBC,URINE 51-80 /HPF (0-3)
--- NOTE | 2022-03-23 18:33 | NUR ---
Jose Escaalnte NP made aware of the result and said he will send that to infectious disease. Addendum: 03/23/22 at 1835 by JUDIE AGARWAL RN UA result
[2022-03-23 20:00] VITALS: BP 115/74
--- NOTE | 2022-03-23 20:11 | NUR ---
RN NOTES: PATIENT SITTING UP IN CHAY CHAIR, NO S/SX OF ACUTE DISTRESS NOTED. PATIENT GUARDED, CONFUSED, ANXIOUS,FORGETFUL, DISORGANIZED,GIVING INAPPROPRIATE ANSWER TO QUESTIONS, PARANOID, NEEDS FREQUENT REDIRECTION. DENIES SI/HI AT THIS TIME.ENCOURAGE TO VERBALIZED ANY FEELING OR CONCERN, SAFETY MEASURES IN PLACE. WILL CONTINUE TO MONITOR Q15MIN ROUNDS FOR SAFETY AND BEHAVIOR.
[2022-03-23] MEDS: risperiDONE 0.25 MG TABLET PO SCH (21:09)
[2022-03-23] MEDS: ATORVASTATIN 10 MG TABLET PO SCH (21:09)
[2022-03-24] MEDS: DIVALPROEX SODIUM 125 MG CAP.SPRINK PO SCH ×2 (07:37→17:09)
[2022-03-24] MEDS: PANTOPRAZOLE 40 MG TABLET.DR PO SCH (07:37)
[2022-03-24] MEDS: LEVOTHYROXINE SODIUM 50 MCG TABLET PO SCH (07:39)
[2022-03-24 08:00] VITALS: BP 142/68
[2022-03-24] MEDS: CEFTRIAXONE 1 G VIAL IM SCH (08:00)
[2022-03-24] MEDS: ENSURE ENLIVE CHOC 237 ML CAN PO SCH ×3 (08:54→17:10)
[2022-03-24] MEDS: risperiDONE 1 MG TABLET PO SCH ×2 (08:54→17:09)
[2022-03-24] MEDS: MUPIROCIN OINT 2% 22 GM TUBE TP SCH (08:54)
[2022-03-24] MEDS: Z GUARD REMEDY 4 OZ OINT TP SCH (08:55)
[2022-03-24 11:34] LABS: BASOPHILS % (AUTO) 0.3 % (0.0-2.0); EOSINOPHILS % (AUTO) 1.2 % (0.0-6.0); HEMATOCRIT 41 % (33-45); HEMOGLOBIN 13.6 g/dL (11.5-14.8); LYMPHOCYTES # (AUTO) 2.1 K/uL (0.8-4.8); LYMPHOCYTES % (AUTO) 30.3 % (20.0-44.0); MEAN CORPUSCULAR HGB CONC 34 g/dl (31.0-36.0); MEAN CORPUSCULAR VOLUME 98 fL (82-100); MONOCYTES % (AUTO) 14.5 % (2.0-12.0); NEUTROPHILS # (AUTO) 3.7 K/uL (1.8-8.9); NEUTROPHILS % (AUTO) 53.7 % (43.0-81.0); PLATELET COUNT (AUTO) 239 K/uL (150-450); RED BLOOD CELL COUNT(AUTO) 4.14 MIL/uL (4.0-5.2); WHITE BLOOD COUNT (AUTO) 6.9 K/uL (4.3-11.0)
[2022-03-24 12:04] LABS: C-REACTIVE PROTEIN < 3.0 mg/dL (0.0-0.9)
[2022-03-24] MEDS: LORAZEPAM 0.5 MG TABLET PO PRN (12:04)
--- NOTE | 2022-03-24 12:05 | NUR ---
NURSE NOTE: PT ANXIOUS AND AGITATED AT THIS TIME. ATIVAN PO ADMINISTERED ORDERED. PT DERRELL WELL. WILL CONT TO MONITOR.
[2022-03-24 12:19] LABS: CALCIUM, SERUM 9.2 mg/dL (8.5-10.1); CARBON DIOXIDE 33 mmol/L (21-32); CHLORIDE 106 mmol/L (98-107); GLUCOSE 171 mg/dL (74-106); POTASSIUM 4.2 mmol/L (3.5-5.1); SODIUM SERUM 145 mmol/L (136-145); UREA NITROGEN, BLOOD 25 mg/dL (7-18)
[2022-03-24 12:28] LABS: ALANINE AMINOTRANSFERASE 27 U/L (12-78); ALBUMIN 3.2 g/dL (3.4-5.0); ALKALINE PHOSPHATASE 83 U/L (46-116); ASPARTATE AMINOTRANSFERASE 22 U/L (15-37); BILIRUBIN,TOTAL 0.4 mg/dL (0.2-1.0); TOTAL PROTEIN, SERUM 7.2 g/dL (6.4-8.2)
--- NOTE | 2022-03-24 13:05 | NUR ---
NURSE NOTE: PT CALM AT THIS TIME. IN GERICHAIR IN THE ACTIVITY ROOM. ATIVAN EFFECTIVE AT THIS TIME. WILL CONT TO MONITOR.
[2022-03-24 16:04] VITALS: BP 132/84
[2022-03-24] MEDS: risperiDONE 0.25 MG TABLET PO SCH (21:04)
[2022-03-24] MEDS: ATORVASTATIN 10 MG TABLET PO SCH (21:04)
[2022-03-24] MEDS: TEMAZEPAM 7.5 MG CAPSULE PO PRN (21:04)
--- NOTE | 2022-03-24 21:04 | NUR ---
Pt unable to sleep. Least restrictive measures ineffective. Restoril 15 mg 2 caps po prn given as ordered. Will continue to monitor.
--- NOTE | 2022-03-24 22:08 | NUR ---
Post 1 hr Restoril effective. Pt asleep easy to arouse. Frequent visual check done for safety. Will continue to monitor.
[2022-03-25] MEDS: LEVOTHYROXINE SODIUM 50 MCG TABLET PO SCH (07:49)
[2022-03-25] MEDS: PANTOPRAZOLE 40 MG TABLET.DR PO SCH (07:50)
[2022-03-25] MEDS: CEFTRIAXONE 1 G VIAL IM SCH (07:59)
[2022-03-25 08:00] VITALS: BP 121/50
[2022-03-25] MEDS: DIVALPROEX SODIUM 125 MG CAP.SPRINK PO SCH ×2 (08:01→17:20)
[2022-03-25] MEDS: ENSURE ENLIVE CHOC 237 ML CAN PO SCH ×3 (08:15→17:20)
[2022-03-25] MEDS: risperiDONE 1 MG TABLET PO SCH ×3 (09:02→21:48)
[2022-03-25] MEDS: MUPIROCIN OINT 2% 22 GM TUBE TP SCH (09:02)
[2022-03-25] MEDS: Z GUARD REMEDY 4 OZ OINT TP SCH (09:03)
--- NOTE | 2022-03-25 09:05 | NUR ---
Discharge Note: Patient will be discharged to a locked fdc facility to [facility] [address] [place] [address]; ([phone]). Please arrange ambulance transportation. Supervisor Instrument Mechanics spoke with Clary, Laborer Tanbark at [facility]; ([phone]), who stated patient will be accepted at facility today. Patient is alert and oriented x1. Patient denies any suicidal or homicidal ideations. Patient is aware and agreeable with discharge plans. Patients son Jerald ([phone]) is aware and agreeable. Patient will continue to follow-up with her (Psychiatrist) Dr. Andrade [address] [facility] [address] [facility] [address], [place] [address]; ([phone]) and Home Agent Dr. August [address] [facility] [address], [place] [address]; ([phone]). Patient presents with euthymic mood and congruent affect. Addendum: 03/25/22 at 1121 by CORI FERRELL Discharge canceled due to pt being aggressive towards Dr. Andrade.
[2022-03-25] MEDS: SERTRALINE HCL 25 MG TABLET PO SCH (13:36)
[2022-03-25 16:00] VITALS: BP 108/58
[2022-03-25] MEDS: ATORVASTATIN 10 MG TABLET PO SCH (21:48)
[2022-03-25] MEDS: ACETAMINOPHEN 325 MG TABLET PO PRN (21:48)
[2022-03-25] MEDS: TEMAZEPAM 7.5 MG CAPSULE PO PRN (21:49)
[2022-03-26] MEDS: PANTOPRAZOLE 40 MG TABLET.DR PO SCH (06:48)
[2022-03-26] MEDS: LEVOTHYROXINE SODIUM 50 MCG TABLET PO SCH (06:48)
[2022-03-26 08:00] VITALS: BP 124/56
[2022-03-26] MEDS: DIVALPROEX SODIUM 125 MG CAP.SPRINK PO SCH ×2 (08:38→16:47)
[2022-03-26] MEDS: risperiDONE 1 MG TABLET PO SCH ×3 (08:39→21:39)
[2022-03-26] MEDS: ENSURE ENLIVE CHOC 237 ML CAN PO SCH ×3 (08:39→16:47)
[2022-03-26] MEDS: Z GUARD REMEDY 4 OZ OINT TP SCH (09:08)
[2022-03-26] MEDS: MUPIROCIN OINT 2% 22 GM TUBE TP SCH (09:18)
[2022-03-26] MEDS: LORAZEPAM 0.5 MG TABLET PO PRN (11:52)
--- NOTE | 2022-03-26 11:59 | NUR ---
RN-NOTES NOTED PATIENT WITH ANXIETY UNABLE TO SIT STILL IN THE DAY ROOM,REDIRECTED AND ATIVAN 0.5MG P.O GIVEN PRN ORDER. WILL CONT. MONITORING FOR SAFETY AND BEHAVIOR.
[2022-03-26] MEDS: SERTRALINE HCL 25 MG TABLET PO SCH (12:50)
--- NOTE | 2022-03-26 13:00 | NUR ---
RN-NOTES PATIENT IN THE DAY ROOM UP IN THE CHAY CHAIR,AWAKE,NO ACUTE DISTRESS NOTED.
[2022-03-26 16:13] VITALS: BP 129/60
--- NOTE | 2022-03-26 19:04 | NUR ---
RN-NOTES PATIENT IN IN BED AWAKE,A/O X1 ,NO ACUTE DISTRESS NOTED.PATIENT IS CONFUSED AND NEEDS FREQUENT REDIRECTIONS. COOPERATIVE WITH THE STAFF .GOOD JANUARY CARE RENDERED. PRN MEDICATIONS FOR ANXIETY GIVEN.COMPLIANT WITH MEDICATIONS.NEEDS MAXIMUM ASSIST WITH ADL'S. ALL NEEDS ATTENDED AND ANTICIPATED. WILL CONT. MONITORING FOR SAFETY AND BEHAVIOR.WILL ENDORSE TO INCOMING NURSE FOR CONTINUITY OF CARE.
--- NOTE | 2022-03-26 19:45 | NUR ---
GPS RN-NOTES RECEIVED PATIENT AWAKE SITTING IN THE CHAY CHAIR, A/O X1 GUARDED, NOTED PT RESISTIVE TO CARE, UNCOOPERATIVE, AND DISORGANIZED. NEEDS FREQUENT REDIRECTIONS. NO ACUTE DISTRESS NOTED. GOOD JANUARY CARE RENDERED. COMPLIANT WITH MEDICATIONS. NEEDS MAXIMUM ASSIST WITH ADL'S. ALL NEEDS ATTENDED AND ANTICIPATED. MONITORING FOR SAFETY AND BEHAVIORAL CHANGES. WILL CONTINUE TO MONITOR THROUGHOUT THE SHIFT.
[2022-03-26 20:40] VITALS: BP 103/70
[2022-03-26] MEDS: ATORVASTATIN 10 MG TABLET PO SCH (21:40)
[2022-03-27] MEDS: TEMAZEPAM 7.5 MG CAPSULE PO PRN (00:18)
--- NOTE | 2022-03-27 00:18 | NUR ---
RN note: Noted patient had difficulty falling asleep, Restoril 15 mg PO given as ordered per clinical assessment .
[2022-03-27] MEDS: LORAZEPAM 0.5 MG TABLET PO PRN (03:49)
--- NOTE | 2022-03-27 03:49 | NUR ---
RN note: NOTED PATIENT WITH ANXIETY UNABLE TO SIT STILL IN THE CHAY CHAIR, REDIRECTED AND ATIVAN 0.5MG P.O GIVEN PRN ORDER. WILL CONT. MONITORING FOR SAFETY AND BEHAVIOR.
[2022-03-27] MEDS: LEVOTHYROXINE SODIUM 50 MCG TABLET PO SCH (06:07)
[2022-03-27] MEDS: PANTOPRAZOLE 40 MG TABLET.DR PO SCH (07:51)
[2022-03-27 08:00] VITALS: BP 101/47
[2022-03-27] MEDS: DIVALPROEX SODIUM 125 MG CAP.SPRINK PO SCH (08:07)
[2022-03-27] MEDS: risperiDONE 1 MG TABLET PO SCH ×3 (09:07→21:25)
[2022-03-27] MEDS: Z GUARD REMEDY 4 OZ OINT TP SCH (09:07)
[2022-03-27] MEDS: MUPIROCIN OINT 2% 22 GM TUBE TP SCH (09:07)
[2022-03-27] MEDS: ENSURE ENLIVE CHOC 237 ML CAN PO SCH ×3 (09:08→17:39)
--- NOTE | 2022-03-27 09:10 | NUR ---
Court Notification: CORI contacted patients ivet Marques ([phone]) and left a voicemail of [phone] hearing.
--- NOTE | 2022-03-27 11:46 | NUR ---
Court Hearing: Patient's court hearing for 5744 was today and it was upheld for GD.
[2022-03-27 12:04] LABS: BASOPHILS % (AUTO) 0.2 % (0.0-2.0); EOSINOPHILS % (AUTO) 1.7 % (0.0-6.0); HEMATOCRIT 39 % (33-45); HEMOGLOBIN 13.2 g/dL (11.5-14.8); LYMPHOCYTES # (AUTO) 2.3 K/uL (0.8-4.8); LYMPHOCYTES % (AUTO) 33.2 % (20.0-44.0); MEAN CORPUSCULAR HGB CONC 34 g/dl (31.0-36.0); MEAN CORPUSCULAR VOLUME 98 fL (82-100); MONOCYTES # (AUTO) 0.9 K/uL (0.1-1.30); MONOCYTES % (AUTO) 12.9 % (2.0-12.0); NEUTROPHILS # (AUTO) 3.6 K/uL (1.8-8.9); PLATELET COUNT (AUTO) 238 K/uL (150-450); RED BLOOD CELL COUNT(AUTO) 3.99 MIL/uL (4.0-5.2); WHITE BLOOD COUNT (AUTO) 6.9 K/uL (4.3-11.0)
[2022-03-27 12:24] LABS: ALBUMIN 3.4 g/dL (3.4-5.0); BILIRUBIN,TOTAL 0.4 mg/dL (0.2-1.0); CREATININE 0.9 mg/dL (0.6-1.3); POTASSIUM 3.9 mmol/L (3.5-5.1); TOTAL PROTEIN, SERUM 7.1 g/dL (6.4-8.2)
[2022-03-27 12:47] LABS: MAGNESIUM 2.5 mg/dL (1.8-2.4)
[2022-03-27] MEDS: SERTRALINE HCL 25 MG TABLET PO SCH (13:32)
[2022-03-27 16:00] VITALS: BP 109/67
[2022-03-27] MEDS ORDERED: DIVALPROEX SODIUM 125 MG CAP.SPRINK PO SCH (17:00)
[2022-03-27 19:52] VITALS: BP 143/55
[2022-03-27] MEDS: ATORVASTATIN 10 MG TABLET PO SCH (21:25)
[2022-03-28] MEDS: TEMAZEPAM 7.5 MG CAPSULE PO PRN (00:30)
[2022-03-28] MEDS: LEVOTHYROXINE SODIUM 50 MCG TABLET PO SCH ×2 (07:08→08:50)
[2022-03-28 08:00] VITALS: BP 102/50
[2022-03-28] MEDS: risperiDONE 1 MG TABLET PO SCH ×3 (08:50→22:21)
[2022-03-28] MEDS: PANTOPRAZOLE 40 MG TABLET.DR PO SCH (08:50)
[2022-03-28] MEDS: MUPIROCIN OINT 2% 22 GM TUBE TP SCH (08:51)
[2022-03-28] MEDS: ENSURE ENLIVE CHOC 237 ML CAN PO SCH ×3 (08:51→17:50)
[2022-03-28] MEDS: Z GUARD REMEDY 4 OZ OINT TP SCH (08:52)
[2022-03-28] MEDS ORDERED: DIVALPROEX SODIUM 125 MG CAP.SPRINK PO SCH (09:00)
[2022-03-28] MEDS: SERTRALINE HCL 25 MG TABLET PO SCH (13:29)
[2022-03-28] MEDS: OXCARBAZEPINE 150 MG TABLET PO SCH ×2 (13:29→17:50)
[2022-03-28 16:00] VITALS: BP 100/54
--- NOTE | 2022-03-28 18:51 | NUR ---
ms rn patient has on episode of agitation and hit physical therapy staff, medications given thru im and was effective, inside the room w/ family at this time.all needs attended. Addendum: 03/28/22 at 1855 by MIRYAM HORTON RN disregard notes, wrong patient
--- NOTE | 2022-03-28 18:56 | NUR ---
ms rn patient has been stable ,stayed on a ileana chair most of the time,all needs attended.
[2022-03-28 20:00] VITALS: BP 93/54
[2022-03-28] MEDS: ATORVASTATIN 10 MG TABLET PO SCH (22:21)
[2022-03-29] MEDS: ENSURE ENLIVE CHOC 237 ML CAN PO SCH ×3 (07:57→16:01)
[2022-03-29] MEDS: OXCARBAZEPINE 150 MG TABLET PO SCH ×3 (07:57→16:02)
[2022-03-29] MEDS: risperiDONE 1 MG TABLET PO SCH ×3 (07:57→21:26)
[2022-03-29] MEDS: LEVOTHYROXINE SODIUM 50 MCG TABLET PO SCH (07:59)
[2022-03-29 08:00] VITALS: BP 117/61
[2022-03-29] MEDS: Z GUARD REMEDY 4 OZ OINT TP SCH (08:00)
[2022-03-29] MEDS: PANTOPRAZOLE 40 MG TABLET.DR PO SCH (08:00)
[2022-03-29] MEDS: MUPIROCIN OINT 2% 22 GM TUBE TP SCH (08:02)
[2022-03-29] MEDS: SERTRALINE HCL 25 MG TABLET PO SCH (11:47)
[2022-03-29] MEDS ORDERED: AMPICILLIN TRIHYDRATE 250 MG CAPSULE PO SCH (14:30)
[2022-03-29] MEDS: AMPICILLIN TRIHYDRATE 500 MG CAPSULE PO SCH ×2 (14:30→16:11)
[2022-03-29 16:00] VITALS: BP 90/60
[2022-03-29 20:11] VITALS: BP 129/64
--- NOTE | 2022-03-29 20:23 | NUR ---
RN NOTES: RECEIVED PATIENT SITTING UP IN GERICHAIR, WATCHING TV IN ACTIVITY ROOM, NO S/SX OF ACUTE DISTRESS NOTED. PATIENT CONFUSED, ANXIOUS,FORGETFUL,HYPERVERBAL DISORGANIZED,GIVING INAPPROPRIATE ANSWER TO QUESTIONS, PARANOID, NONREDIRECTABLE,REFUSED GO BACK TO HER BED AT THIS TIME, NEEDS FREQUENT REDIRECTION. DENIES SI/HI AT THIS TIME.ENCOURAGE TO VERBALIZED ANY FEELING OR CONCERN, SAFETY MEASURES IN PLACE. WILL CONTINUE TO MONITOR Q15MIN ROUNDS FOR SAFETY AND BEHAVIOR.
[2022-03-29] MEDS: ATORVASTATIN 10 MG TABLET PO SCH (21:27)
[2022-03-30] MEDS: OXCARBAZEPINE 150 MG TABLET PO SCH ×3 (07:58→16:40)
[2022-03-30] MEDS: ENSURE ENLIVE CHOC 237 ML CAN PO SCH ×3 (07:58→16:38)
[2022-03-30] MEDS: PANTOPRAZOLE 40 MG TABLET.DR PO SCH (07:58)
[2022-03-30] MEDS: LEVOTHYROXINE SODIUM 50 MCG TABLET PO SCH (07:58)
[2022-03-30] MEDS: Z GUARD REMEDY 4 OZ OINT TP SCH (07:59)
[2022-03-30] MEDS: risperiDONE 1 MG TABLET PO SCH ×3 (07:59→21:09)
[2022-03-30 08:00] VITALS: BP 99/51
[2022-03-30] MEDS: MUPIROCIN OINT 2% 22 GM TUBE TP SCH (08:00)
[2022-03-30] MEDS: AMPICILLIN TRIHYDRATE 500 MG CAPSULE PO SCH ×2 (13:31→16:38)
[2022-03-30] MEDS: SERTRALINE HCL 25 MG TABLET PO SCH (13:32)
[2022-03-30 16:00] VITALS: BP 140/47
[2022-03-30 20:00] VITALS: BP 113/88
--- NOTE | 2022-03-30 20:28 | NUR ---
RN NOTES:PATIENT RESTING IN HER ROOM. PATIENT CONFUSED, ANXIOUS,FORGETFUL,HYPERVERBAL DISORGANIZED,GIVING INAPPROPRIATE ANSWER TO QUESTIONS, PARANOID, NONREDIRECTABLE,REFUSED GO BACK TO HER BED AT THIS TIME, NEEDS FREQUENT REDIRECTION. DENIES SI/HI AT THIS TIME.ENCOURAGE TO VERBALIZED ANY FEELING OR CONCERN, SAFETY MEASURES IN PLACE. WILL CONTINUE TO MONITOR Q15MIN ROUNDS FOR SAFETY AND BEHAVIOR.
[2022-03-30] MEDS: ATORVASTATIN 10 MG TABLET PO SCH (21:09)
[2022-03-31 08:00] VITALS: BP 112/61
[2022-03-31] MEDS: AMPICILLIN TRIHYDRATE 500 MG CAPSULE PO SCH ×2 (08:30→17:24)
[2022-03-31] MEDS: ENSURE ENLIVE CHOC 237 ML CAN PO SCH ×3 (08:30→17:24)
[2022-03-31] MEDS: LEVOTHYROXINE SODIUM 50 MCG TABLET PO SCH (08:32)
[2022-03-31] MEDS: OXCARBAZEPINE 150 MG TABLET PO SCH ×3 (08:32→17:23)
[2022-03-31] MEDS: PANTOPRAZOLE 40 MG TABLET.DR PO SCH (08:32)
[2022-03-31] MEDS: risperiDONE 1 MG TABLET PO SCH ×3 (08:32→21:07)
[2022-03-31] MEDS: MUPIROCIN OINT 2% 22 GM TUBE TP SCH (08:32)
[2022-03-31] MEDS: Z GUARD REMEDY 4 OZ OINT TP SCH (08:40)
[2022-03-31] MEDS: SERTRALINE HCL 25 MG TABLET PO SCH (12:30)
[2022-03-31 16:00] VITALS: BP 112/50
[2022-03-31] MEDS: ATORVASTATIN 10 MG TABLET PO SCH (21:08)
[2022-03-31] MEDS: TEMAZEPAM 7.5 MG CAPSULE PO PRN (21:54)
[2022-03-31] MEDS: LORAZEPAM 0.5 MG TABLET PO PRN (23:21)
[2022-04-01] MEDS: LEVOTHYROXINE SODIUM 50 MCG TABLET PO SCH (06:42)
[2022-04-01 08:00] VITALS: BP 126/73
[2022-04-01] MEDS: PANTOPRAZOLE 40 MG TABLET.DR PO SCH (08:27)
[2022-04-01] MEDS: OXCARBAZEPINE 150 MG TABLET PO SCH ×3 (09:26→17:52)
[2022-04-01] MEDS: risperiDONE 1 MG TABLET PO SCH ×3 (09:26→21:42)
[2022-04-01] MEDS: MUPIROCIN OINT 2% 22 GM TUBE TP SCH (09:27)
[2022-04-01] MEDS: Z GUARD REMEDY 4 OZ OINT TP SCH (09:27)
[2022-04-01] MEDS: ENSURE ENLIVE CHOC 237 ML CAN PO SCH ×3 (09:29→17:52)
[2022-04-01] MEDS: AMPICILLIN TRIHYDRATE 500 MG CAPSULE PO SCH ×2 (09:30→17:53)
[2022-04-01] MEDS: SERTRALINE HCL 25 MG TABLET PO SCH (12:57)
[2022-04-01 16:00] VITALS: BP 127/81
[2022-04-01 19:49] VITALS: BP 104/52
[2022-04-01] MEDS: ATORVASTATIN 10 MG TABLET PO SCH (21:41)
[2022-04-01] MEDS: TEMAZEPAM 7.5 MG CAPSULE PO PRN (21:43)
[2022-04-02] MEDS: LEVOTHYROXINE SODIUM 50 MCG TABLET PO SCH (07:51)
[2022-04-02] MEDS: PANTOPRAZOLE 40 MG TABLET.DR PO SCH (07:51)
[2022-04-02 08:00] VITALS: BP 100/50
--- NOTE | 2022-04-02 08:17 | NUR ---
SW Discharge Note: Patient will be discharged to a locked long-term facility to [facility]Note 3[facility] [address] [place] [address]; ([phone]). Please arrange ambulance transportation. Skid Road Worker spoke with Clary, Cable Ferry Operator at [facility][Note 3]; ([phone]), who stated patient will be accepted at facility today. Patient is alert and oriented x1. Patient denies any suicidal or homicidal ideations. Patient is aware and agreeable with discharge plans. Patients son Jerald ([phone]) is aware and agreeable. Patient will continue to follow-up with her (Psychiatrist) Dr. Andrade [address] [facility] [address], [place] [address]; ([phone]) and Funeral Arranger Dr. August [address] [facility] [address], [place] [address]; ([phone]). Patient presents with euthymic mood and congruent affect.
--- NOTE | 2022-04-02 08:20 | NUR ---
WOUND CARE CONSULT: RECEIVED CONSULT FOR RT GREAT TOE. THICKENED DISCOLORED TOENAIL NOTED TO RT GREAT TOE, PRESENT ON ADMISSION. NO TENDERNESS OR ERYTHEMA NOTED. WILL SEE PRN.
[2022-04-02] MEDS: ENSURE ENLIVE CHOC 237 ML CAN PO SCH ×2 (09:00→13:22)
[2022-04-02] MEDS: Z GUARD REMEDY 4 OZ OINT TP SCH (09:00)
[2022-04-02] MEDS: risperiDONE 1 MG TABLET PO SCH (10:24)
[2022-04-02] MEDS: AMPICILLIN TRIHYDRATE 500 MG CAPSULE PO SCH (10:24)
[2022-04-02] MEDS: OXCARBAZEPINE 150 MG TABLET PO SCH ×2 (10:24→13:19)
[2022-04-02] MEDS: MUPIROCIN OINT 2% 22 GM TUBE TP SCH (10:24)
--- NOTE | 2022-04-02 12:20 | NUR ---
CALLED [facility] @ [phone] AND GAVE REPORT TO ASSISTANT HÉCTOR ZAZUETA FOR PATIENT BEING DISCHARGED TO THE FACILITY. INFORMED THAT THE PICKED UP TIME FROM [facility] IS AT 1300. NO FURTHER QUESTIONS NOTED.
--- NOTE | 2022-04-02 13:14 | NUR ---
TRANSPORTATION AM WEST CAME TO STAMP MACHINE SERVICER THE PATIENT. GAVE REPORT TO PADMINI. DISCHARGE PAPERWORK HANDED TO THE AMBULANCE PERSONNEL. DENIES ANY SUICIDAL IDEATION, HOMICIDAL IDEATION, AND NO AUDITORY AND VISUAL HALLUCINATION. PATIENT LEFT VIA GURNEY IN NO APPARENT DISTRESS.
[2022-04-02] MEDS: SERTRALINE HCL 25 MG TABLET PO SCH (13:19)
== END 2022-04-02 13:25 | DRG 885 ==
LOC: ER 21:41 → GPS 03-07 05:01
PROVIDERS: ADMIT Psychiatry & Neurology Psychosomatic Medicine; ATTEND Registered Nurse
DX: F29 Unspecified psychosis not due to a substance or known physiological condition (principal); B95.2 Enterococcus as the cause of diseases classified elsewhere; N39.0 Urinary tract infection, site not specified; M84.477A Pathological fracture, right toe(s), initial encounter for fracture; G30.9 Alzheimer's disease, unspecified; E78.5 Hyperlipidemia, unspecified; E03.9 Hypothyroidism, unspecified; F02.80 Dementia in other diseases classified elsewhere, unspecified severity, without behavioral disturbance, psychotic disturbance, mood disturbance, and anxiety; I10 Essential (primary) hypertension; B35.1 Tinea unguium; K21.9 Gastro-esophageal reflux disease without esophagitis; L60.1 Onycholysis; L60.3 Nail dystrophy; L03.031 Cellulitis of right toe; B95.5 Unspecified streptococcus as the cause of diseases classified elsewhere; Z79.899 Other long term (current) drug therapy; Z86.711 Personal history of pulmonary embolism; Z73.6 Limitation of activities due to disability; Z87.440 Personal history of urinary (tract) infections; M19.90 Unspecified osteoarthritis, unspecified site; B96.89 Other specified bacterial agents as the cause of diseases classified elsewhere
CPT/HCPCS: 36415; 73660-TC; 80048-TC; 80053-TC; 80061-TC; 80076-TC; 80164-TC; 81001; 82140-TC; 82565-TC; 83735-TC; 85025-TC; 86140-TC; 87081-TC; 87086-TC; 87186-TC; 94799-TC; 97110-TC; 97112-TC; 97116-TC; 97530-TC; C9803; G0480; J0690; J0696; J2060

== ENCOUNTER 2022-06-17 18:46 | Emergency (ER) | payer MEDICARE ==
[~2022-06-17] VITALS: Ht 162.6 cm; Wt 54.4 kg
[~2022-06-17 18:46] MED LIST changes: -DIVA125T32 PO; -LORA-258 PO; -QUET25TA PO; -TRAZ-182 PO
--- NOTE | 2022-06-17 18:50 | NUR ---
BIB FAMILY STATING SHE HAS BEEN ALTERED SINCE YESTERDAY AND AGITATED. PLACED IN BED, AAOX3- COOPERATIVE FOLLOWS COMMAND, BREATHING EVEN AND UNLABORED SATURATING AT 98%RA.
--- NOTE | 2022-06-17 19:00 | NUR ---
AT BEDSIDE FOR EVAL.
--- NOTE | 2022-06-17 19:10 | NUR ---
ENGINEERING MODEL MAKER AT BEDSIDE
--- NOTE | 2022-06-17 19:20 | NUR ---
SWAB FOR COVID19 SENT TO LAB
--- NOTE | 2022-06-17 19:26 | NUR ---
PATIENT TAKEN TO CT VIA JAMIE
[2022-06-17 19:48] LABS: CALCIUM, SERUM 8.7 mg/dL (8.5-10.1); CARBON DIOXIDE 32 mmol/L (21-32); CHLORIDE 101 mmol/L (98-107); CREATININE 0.7 mg/dL (0.6-1.3); GLUCOSE 124 mg/dL (74-106); POTASSIUM 3.5 mmol/L (3.5-5.1); SODIUM SERUM 138 mmol/L (136-145); UREA NITROGEN, BLOOD 21 mg/dL (7-18)
[2022-06-17 19:54] LABS: ALANINE AMINOTRANSFERASE 18 U/L (12-78); ALBUMIN 3.4 g/dL (3.4-5.0); ALCOHOL, BLOOD < 3 mg/dL (0-0); ALKALINE PHOSPHATASE 93 U/L (46-116); ASPARTATE AMINOTRANSFERASE 14 U/L (15-37); BILIRUBIN,DIRECT 0.1 mg/dL (0.0-0.2); BILIRUBIN,TOTAL 0.2 mg/dL (0.2-1.0); TOTAL PROTEIN, SERUM 6.9 g/dL (6.4-8.2)
[2022-06-17 19:56] LABS: ACETAMINOPHEN < 10 ug/ml (10-30)
[2022-06-17 20:11] LABS: BASOPHILS % (AUTO) 0.3 % (0.0-2.0); EOSINOPHILS % (AUTO) 4.3 % (0.0-6.0); HEMATOCRIT 38 % (33-45); HEMOGLOBIN 12.8 g/dL (11.5-14.8); LYMPHOCYTES % (AUTO) 14.3 % (20.0-44.0); MEAN CORPUSCULAR HGB CONC 33 g/dl (31.0-36.0); MEAN CORPUSCULAR VOLUME 98 fL (82-100); MONOCYTES # (AUTO) 0.9 K/uL (0.1-1.30); MONOCYTES % (AUTO) 12.8 % (2.0-12.0); NEUTROPHILS # (AUTO) 4.5 K/uL (1.8-8.9); NEUTROPHILS % (AUTO) 68.3 % (43.0-81.0); PLATELET COUNT (AUTO) 272 K/uL (150-450); RED BLOOD CELL COUNT(AUTO) 3.92 MIL/uL (4.0-5.2); WHITE BLOOD COUNT (AUTO) 6.7 K/uL (4.3-11.0)
[2022-06-17] MEDS ORDERED: LORAZEPAM 0.5 MG TABLET ONE (20:55)
[2022-06-17] MEDS ORDERED: OXCARBAZEPINE 150 MG TABLET ONE (20:55)
[2022-06-17] MEDS ORDERED: OXCARBAZEPINE 150 MG TABLET PO ONE (21:00)
[2022-06-17] MEDS ORDERED: LORAZEPAM 1 MG TABLET PO ONE (21:00)
--- NOTE | 2022-06-17 21:32 | NUR ---
URINE SAMPLE SENT TO LAB
[2022-06-17 22:28] LABS: BILIRUBIN,URINE NEGATIVE (NEGATIVE); COLOR,URINE YELLOW (YELLOW); LEUKOCYTE ESTERASE ,URINE 3+ (NEGATIVE); NITRITE, URINE POSITIVE (NEGATIVE); PH,URINE 7.5 (5.0-8.0); PROTEIN,URINE NEGATIVE (NEGATIVE); UGLUCOSE NEGATIVE (NEGATIVE); UROBILINOGEN,URINE 0.2 EU/dL (0.2)
[2022-06-17 23:41] LABS: BACTERIA,URINE Many /HPF (None Seen); RBC,URINE 0-2 /HPF (0-2)
[2022-06-17 23:45] LABS: SQUAMOUS EPITHELIAL CELL,UR Many /HPF (None Seen); WBC,URINE 21-50 /HPF (0-3)
[2022-06-18] MEDS ORDERED: CIPROFLOXACIN HCL 500 MG TABLET PO ONE
[2022-06-18] MEDS ORDERED: CIPR-262 PO ×2 (00:01→00:29)
--- NOTE | 2022-06-18 00:29 | NUR ---
DC INSTRUCTIONS GIVEN TO SONAL WATER QUALITY MANAGER [facility]. ETA 30 MINS.
[2022-06-18] MEDS ORDERED: LORAZEPAM 0.5 MG TABLET PO ONE (00:30)
[2022-06-18] MEDS ORDERED: LORAZEPAM 0.5 MG TABLET ONE (00:31)
--- NOTE | 2022-06-18 01:08 | NUR ---
Patient discharged to [facility] in stable condition. Written and verbal after care instructions given. Jarocho Director of facility verbalizes understanding of instruction.
[2022-06-18 01:10] VITALS: BP 139/79
== END 2022-06-18 01:11 ==
LOC: ER 18:52
DX: R45.1 Restlessness and agitation (principal); G30.9 Alzheimer's disease, unspecified; F02.80 Dementia in other diseases classified elsewhere, unspecified severity, without behavioral disturbance, psychotic disturbance, mood disturbance, and anxiety; E78.5 Hyperlipidemia, unspecified; I10 Essential (primary) hypertension; Z79.899 Other long term (current) drug therapy; N28.9 Disorder of kidney and ureter, unspecified; G31.9 Degenerative disease of nervous system, unspecified; Z20.822 Contact with and (suspected) exposure to COVID-19
CPT/HCPCS: 36415; 70450-TC; 80048-TC; 80076-TC; 81001; 85025-TC; 87086-TC; C9803; G0480

== ENCOUNTER 2022-06-19 19:08 | Inpatient (IN) | payer MEDICARE ==
[~2022-06-19] VITALS: Ht 162.6 cm; Wt 54.9 kg
[~2022-06-19 19:08] MED LIST changes: +CIPR-262 PO
--- NOTE | 2022-06-19 19:24 | NUR ---
PT IN BED RESTING WITH CAREGIVER IN THE ROOM. PT IS BREATHING EVENLY AND UNLABORED. C/O OF GI BLEED. PT HOOKED UP TO [facility] ARE STABLE. REPORT GIVENT TO NURSE FOR NINA
--- NOTE | 2022-06-19 20:00 | NUR ---
LFA #20G S/L BLOOD COLLECTED AND SENT TO LAB
--- NOTE | 2022-06-19 20:02 | NUR ---
URINE COLLECTED AND SENT TO LAB
[2022-06-19 20:19] LABS: BASOPHILS % (AUTO) 0.4 % (0.0-2.0); EOSINOPHILS % (AUTO) 6.8 % (0.0-6.0); HEMATOCRIT 36 % (33-45); HEMOGLOBIN 12.2 g/dL (11.5-14.8); LYMPHOCYTES # (AUTO) 1.4 K/uL (0.8-4.8); LYMPHOCYTES % (AUTO) 22.7 % (20.0-44.0); MEAN CORPUSCULAR HGB CONC 34 g/dl (31.0-36.0); MEAN CORPUSCULAR VOLUME 96 fL (82-100); MONOCYTES # (AUTO) 0.8 K/uL (0.1-1.30); MONOCYTES % (AUTO) 13.5 % (2.0-12.0); NEUTROPHILS # (AUTO) 3.4 K/uL (1.8-8.9); NEUTROPHILS % (AUTO) 56.6 % (43.0-81.0); PLATELET COUNT (AUTO) 269 K/uL (150-450)
[2022-06-19 20:30] LABS: COLOR,URINE RED (YELLOW)
[2022-06-19 20:38] LABS: CALCIUM, SERUM 8.5 mg/dL (8.5-10.1); CARBON DIOXIDE 29 mmol/L (21-32); CHLORIDE 99 mmol/L (98-107); CREATININE 0.7 mg/dL (0.6-1.3); GLUCOSE 123 mg/dL (74-106); POTASSIUM 4.1 mmol/L (3.5-5.1); SODIUM SERUM 134 mmol/L (136-145); UREA NITROGEN, BLOOD 21 mg/dL (7-18)
[2022-06-19 20:53] LABS: ALANINE AMINOTRANSFERASE 17 U/L (12-78); ALBUMIN 3.1 g/dL (3.4-5.0); ALKALINE PHOSPHATASE 80 U/L (46-116); ASPARTATE AMINOTRANSFERASE 13 U/L (15-37); BILIRUBIN,DIRECT 0.1 mg/dL (0.0-0.2); BILIRUBIN,TOTAL 0.2 mg/dL (0.2-1.0); LIPASE 67 U/L (73-393); TOTAL PROTEIN, SERUM 6.4 g/dL (6.4-8.2)
[2022-06-19] MEDS ORDERED: CT SWABBABLE VALVE TRANS SET 1 EA INFUS.SET MC ONE (20:57)
[2022-06-19] MEDS ORDERED: IOHEXOL-300 100 ML VIAL IV ONE (20:57)
--- NOTE | 2022-06-19 21:07 | NUR ---
PATIENT TAKEN TO CT VIA JAMIE
--- NOTE | 2022-06-19 21:07 | NUR ---
PT TAKEN TO CT VIA JAMIE
[2022-06-19] MEDS ORDERED: CEFTRIAXONE 1GM BAG (ER ONLY) 50 ML IV ONE (21:59)
[2022-06-19] MEDS ORDERED: CEFTRIAXONE 1GM BAG (ER ONLY) 1 GM/50 ML PIGGYBACK IV ONE (22:00)
--- NOTE | 2022-06-19 22:10 | NUR ---
EPIC PANEL PAGED
--- NOTE | 2022-06-19 22:29 | NUR ---
CN COVID ANTIGEN SWAB COLLECTED AND SENT TO LAB
--- NOTE | 2022-06-19 22:29 | NUR ---
covid swab done and sent to lab
[2022-06-19 22:34] LABS: RBC,URINE TOO NUMEROUS TO COUN /HPF (0-2); SQUAMOUS EPITHELIAL CELL,UR 0-2 /HPF (None Seen)
[2022-06-19 22:36] LABS: BACTERIA,URINE None seen /HPF (None Seen)
[2022-06-19] MEDS ORDERED: ZOLPIDEM TARTRATE 5 MG TABLET PO PRN (23:30)
[2022-06-19] MEDS ORDERED: MAGNESIUM HYDROXIDE 30 ML UDC PO PRN (23:30)
[2022-06-19] MEDS ORDERED: Z GUARD REMEDY 4 OZ OINT TP PRN (23:30)
[2022-06-19] MEDS ORDERED: MAG HYDROX/AL HYDROX/SIMETH 30 ML UDC PO PRN (23:30)
[2022-06-19] MEDS ORDERED: ONDANSETRON HCL/PF 4 MG/2 ML VIAL IVP PRN (23:30)
--- NOTE | 2022-06-20 00:24 | NUR ---
ROOM 114-2
--- NOTE | 2022-06-20 00:40 | NUR ---
Report given to Toni AYERS.
--- NOTE | 2022-06-20 00:51 | NUR ---
Transferred to 114-2 via bassem with RN.
--- NOTE | 2022-06-20 01:00 | NUR ---
CHILDREN COUNSELOR NOTE ADMITTED AN 87YO F FROM ER, ARRIVED VIA STRETCHER ACCOMPANIED BY 2 ER PERSONNELS. PT IS AWAKE, ALERT AND ORIENTED TO SELF ONLY, VERBALLY RESPONSIVE. NO C/O PAIN/DISCOMFORT AT THIS TIME. ON RA, NO SOB, NO ACUTE RESP DISTRESS NOTED. IV ACCESS ON LFA #20 S/L, PATENT, FLUSHES WELL. PT NOTED WITH GEN. BODY RASH AND DARK PURPLISH DISCOLORATION ON FOREHEAD. NO EDEMA PRESENT. PT NOTED WITH HEMATURIA BRIGHT RED BLOOD WITH MINIMAL CLOTS ON DIAPER UPON ADMISSION ASSESSMENT. NO BLADDER DISTENTION NOTED, SKIN INTACT ON PERINEAL/VAGINAL AREA. KEPT PT CLEAN, DRY AND COMFORTABLE. SAFETY PRECAUTIONS IMPLEMENTED: BED LOCKED AND IN LOWEST POSITION. CALL LIGHT WITHIN EASY REACH. WILL CONT POC.
[2022-06-20] MEDS: ACETAMINOPHEN 325 MG TABLET PO PRN (01:52)
--- NOTE | 2022-06-20 01:53 | NUR ---
ORTHOPEDIC DESIGNER NOTE PT C/O GEN BODY PAIN PS 1/3, NON-PHARM INTERVENTIONS PROVIDED. PRN MED GIVEN ORDERED. WILL REASSES PT.
[2022-06-20 02:40] VITALS: BP 154/69
--- NOTE | 2022-06-20 03:20 | NUR ---
HAND STRAIGHTENER NOTE PT ATTEMPTED TO REMOVE IV LINE MULTIPLE TIMES, PT ALSO UNABLE TO FOLLOW SAFETY INSTRUCTIONS D/T MENTAL STATUS, PT BASELINE MENTAL STATUS ALERT/AWAKE WITH CONFUSION. VERBAL INSTRUCTIONS GIVEN, REORIENTATION AND REDIRECTION PROVIDED, PT STILL NOT ABLE TO COMPREHEND. MD NOTIFIED W ORDER TO USE BILATERAL SOFT WRISTS.
[2022-06-20 04:00] VITALS: BP 152/71
[2022-06-20] MEDS: IV NS 0.9% 1,000 ML IV PRN ×2 (04:44→17:54)
[2022-06-20 05:49] LABS: BASOPHILS % (AUTO) 0.1 % (0.0-2.0); HEMATOCRIT 36 % (33-45); HEMOGLOBIN 12.1 g/dL (11.5-14.8); LYMPHOCYTES # (AUTO) 0.6 K/uL (0.8-4.8); LYMPHOCYTES % (AUTO) 5.9 % (20.0-44.0); MEAN CORPUSCULAR HGB CONC 34 g/dl (31.0-36.0); MEAN CORPUSCULAR VOLUME 96 fL (82-100); MONOCYTES # (AUTO) 0.6 K/uL (0.1-1.30); MONOCYTES % (AUTO) 5.1 % (2.0-12.0); NEUTROPHILS # (AUTO) 9.7 K/uL (1.8-8.9); NEUTROPHILS % (AUTO) 88.9 % (43.0-81.0); PLATELET COUNT (AUTO) 285 K/uL (150-450); RED BLOOD CELL COUNT(AUTO) 3.73 MIL/uL (4.0-5.2); WHITE BLOOD COUNT (AUTO) 10.9 K/uL (4.3-11.0)
--- NOTE | 2022-06-20 06:19 | NUR ---
BARREL LOADER AND CLEANER CLOSING NOTE PT REMAINS AWAKE THROUGHOUT THE SHIFT, ORIENTED TO SELF ONLY WITH EPISODES OF CONFUSION, REMAINS AT BASELINE MENTAL STATUS. DENIES PAIN/DISCOMFORT AT THIS TIME. ON RA, NO SOB, NO ACUTE RESP DISTRESS NOTED. IV ACCESS ON LFA #20 INFUSING NS@75ML/HR, PATENT, NO S/SX OF INFX/INFILTRATION. PT STILL NOTED WITH BRIGHT RED BLOOD WITH MINIMAL CLOTS ON DIAPER. NO BLADDER DISTENTION NOTED, SKIN INTACT ON PERINEAL/VAGINAL AREA. KEPT PT CLEAN, DRY AND COMFORTABLE. ALL NEEDS ANTICIPATED. SAFETY PRECAUTIONS IMPLEMENTED: BED LOCKED AND IN LOWEST POSITION.
[2022-06-20 06:24] LABS: CALCIUM, SERUM 8.8 mg/dL (8.5-10.1); CARBON DIOXIDE 26 mmol/L (21-32); CHLORIDE 96 mmol/L (98-107); CREATININE 0.7 mg/dL (0.6-1.3); GLUCOSE 220 mg/dL (74-106); PHOSPHORUS 3.2 mg/dL (2.5-4.9); POTASSIUM 3.5 mmol/L (3.5-5.1); SODIUM SERUM 131 mmol/L (136-145); UREA NITROGEN, BLOOD 17 mg/dL (7-18)
[2022-06-20 06:34] LABS: CHOLESTEROL 130 mg/dL (<200); HDL CHOLESTEROL 56 mg/dL (40-60); LDL 71 mg/dL (0-99); THYROID STIMULATING HORMONE 3.065 uIU/mL (0.358-3.74); TRIGLYCERIDES 33 mg/dL (30-150)
--- NOTE | 2022-06-20 07:30 | NUR ---
AEROSPACE MANAGER OPENING NOTE PATIENT AWAKE A/O X2, DENIES PAIN/DISCOMFORT AT THIS TIME. ON RA, NO SOB, NO ACUTE RESP DISTRESS NOTED. IV ACCESS ON LFA #20 INFUSING NS@75ML/HR, PATENT, NO S/SX OF INFX/INFILTRATION. NOTED WITH BRIGHT RED BLOOD WITHOUT CLOTS. NO BLADDER DISTENTION NOTED, SKIN INTACT ON PERINEAL/VAGINAL AREA. KEPT PT CLEAN, DRY AND COMFORTABLE. SAFETY PRECAUTIONS IMPLEMENTED: BED LOCKED AND IN LOWEST POSITION. WILL CONTINUE TO MONITOR.
[2022-06-20] MEDS: LEVOTHYROXINE SODIUM 50 MCG TABLET PO SCH (07:47)
--- NOTE | 2022-06-20 09:57 | NUR ---
WOUND CARE CONSULT: PT PRESENTS WITH LARGE AREA OF DISCOLORATION TO FACE, PRESENT ON ADMISSION. URINE IS RED IN COLOR. RECOMMENDATIONS MADE FOR SKIN PROTECTION. DISCUSSED WITH NURSING STAFF. MD IN AGREEMENT WITH PLAN OF CARE. WILL SEE PRN.
--- NOTE | 2022-06-20 10:30 | NUR ---
RN NOTES PLACED A PUREWICK TO PATIENT ORDERED BY WOUND CARE NURSE. WILL MONITOR.
[2022-06-20] MEDS ORDERED: BISACODYL SUPP (10 MG) 10 MG/SUPP.RECT SUPP.RECT RC ONE (12:00)
[2022-06-20] MEDS: AMLODIPINE BESYLATE 5 MG TABLET PO SCH (12:42)
[2022-06-20 14:21] VITALS: BP 130/70
[2022-06-20] MEDS: ENSURE ENLIVE 237 ML LIQUID (VANILLA) PO SCH (17:21)
[2022-06-20] MEDS: DOCUSATE SODIUM 100 MG CAPSULE PO SCH (17:21)
--- NOTE | 2022-06-20 20:02 | NUR ---
METAL MACHINE SETTER CLOSING NOTE PT REMAINS AWAKE THROUGHOUT THE SHIFT, ORIENTED TO SELF ONLY WITH EPISODES OF CONFUSION, REMAINS AT BASELINE MENTAL STATUS. DENIES PAIN/DISCOMFORT AT THIS TIME. ON RA, NO SOB, NO ACUTE RESP DISTRESS NOTED. IV ACCESS ON LFA #20 INFUSING NS@75ML/HR, PATENT, NO S/SX OF INFX/INFILTRATION. PT STILL NOTED WITH BRIGHT RED DISCHARGED. SKIN INTACT ON PERINEAL/VAGINAL AREA. KEPT PT CLEAN, DRY AND COMFORTABLE. ALL NEEDS ANTICIPATED. SAFETY PRECAUTIONS IMPLEMENTED: BED LOCKED AND IN LOWEST POSITION. WILL ENDORSED TO NEXT NURSE FOR NINA.
[2022-06-20] MEDS: CEFTRIAXONE 1 G in IV D5W 50 ML IV SCH (20:59)
[2022-06-20] MEDS: ATORVASTATIN 10 MG TABLET PO SCH (21:03)
[2022-06-20 22:00] VITALS: BP_SYST 138
[2022-06-21 04:00] VITALS: BP 125/72
[2022-06-21 06:20] LABS: BASOPHILS % (AUTO) 0.1 % (0.0-2.0); EOSINOPHILS % (AUTO) 0.5 % (0.0-6.0); HEMATOCRIT 36 % (33-45); HEMOGLOBIN 12.1 g/dL (11.5-14.8); LYMPHOCYTES % (AUTO) 8.7 % (20.0-44.0); MEAN CORPUSCULAR HGB CONC 33 g/dl (31.0-36.0); MEAN CORPUSCULAR VOLUME 97 fL (82-100); MONOCYTES # (AUTO) 1.4 K/uL (0.1-1.30); MONOCYTES % (AUTO) 12.2 % (2.0-12.0); NEUTROPHILS # (AUTO) 9.2 K/uL (1.8-8.9); NEUTROPHILS % (AUTO) 78.5 % (43.0-81.0); PLATELET COUNT (AUTO) 275 K/uL (150-450); RED BLOOD CELL COUNT(AUTO) 3.76 MIL/uL (4.0-5.2); WHITE BLOOD COUNT (AUTO) 11.7 K/uL (4.3-11.0)
[2022-06-21] MEDS: LEVOTHYROXINE SODIUM 50 MCG TABLET PO SCH (06:49)
[2022-06-21 07:10] LABS: CALCIUM, SERUM 8.5 mg/dL (8.5-10.1); CREATININE 0.9 mg/dL (0.6-1.3); MAGNESIUM 2.1 mg/dL (1.8-2.4); PHOSPHORUS 3.5 mg/dL (2.5-4.9); POTASSIUM 3.5 mmol/L (3.5-5.1)
--- NOTE | 2022-06-21 07:56 | NUR ---
MS OPENING RN NOTE RECEIVED PATIENT IN BED SLEEPING, ALERT AND VERBALLY RESPONSIVE WHEN AWAKEN, NOTED LEFT WRIST IV, NOT FLUSING, WILL REINSERT A NEW IV LINE. ORIENTED TO SELF ONLY. DENIES PAIN/DISCOMFORT AT THIS TIME. ON RA, NO SOB, NO ACUTE RESP DISTRESS NOTED. ON PUREWICK NOTED WITH RED URINE. BILATERAL SOFT WRIST RESTRAINT NOTED, CHECK FOR SKIN CIRCULATION. SAFETY PRECAUTIONS IMPLEMENTED: BED LOCKED AND IN LOWEST POSITION. PLAN OF CARE CONTINUE.
[2022-06-21] MEDS: ENSURE ENLIVE 237 ML LIQUID (VANILLA) PO SCH ×3 (08:03→16:01)
[2022-06-21] MEDS: DOCUSATE SODIUM 100 MG CAPSULE PO SCH ×2 (09:16→16:01)
[2022-06-21] MEDS: AMLODIPINE BESYLATE 5 MG TABLET PO SCH (09:17)
--- NOTE | 2022-06-21 10:58 | NUR ---
RE INSERT A NEW PIV ON LEFT FOREARM GAUGE #20, PATENT AND INTACT, FLUSHES WELL, SECURED WITH TAPE. PLAN OF CARE CONTINUE.
[2022-06-21] MEDS ORDERED: QUETIAPINE FUMARATE 25 MG TABLET PO PRN (11:30)
--- NOTE | 2022-06-21 11:30 | NUR ---
SEEN BY DR. GLORIA AT BEDSIDE, NOTED PATIENT VERY SLEEPY DUE TO PRN AMBIEN GIVEN LAST NIGHT, WITH NEW ORDER TO D/C AMBIEN AND CHANGED TO SEROQUEL 12.5 MG PO QHS PRN FOR SLEEPLESSNESS, NOTED AND CARRIED OUT, PLAN OF CARE CONTINUE.
[2022-06-21] MEDS: ACETAMINOPHEN 325 MG TABLET PO PRN (15:37)
[2022-06-21 16:00] VITALS: BP 127/55
--- NOTE | 2022-06-21 18:09 | NUR ---
MS CLOSING RN NOTE PATIENT IN BED AWAKE, ALERT AND VERBALLY RESPONSIVE. LEFT FOREARM PIV PATENT AND INTACT, FLUSHES WELL WITH NS @75ML RUNNING. ORIENTED TO SELF ONLY. DENIES PAIN/DISCOMFORT AT THIS TIME. ON RA, NO SOB, NO ACUTE RESP DISTRESS NOTED. ON PUREWICK NOTED WITH 400ML OUTPUT, STILL NOTED WITH HEMATURIA. BILATERAL SOFT WRIST RESTRAINTS INTACT, CHECK FOR SKIN CIRCULATION. SAFETY PRECAUTIONS IMPLEMENTED: BED LOCKED AND IN LOWEST POSITION. WILL ENDORSE TO NIGHT NURSE FOR NINA.
[2022-06-21] MEDS: IV NS 0.9% 1,000 ML IV PRN (19:19)
--- NOTE | 2022-06-21 19:30 | NUR ---
RN NOTES PATIENT AWAKE A/O X2, DENIES PAIN/DISCOMFORT AT THIS TIME. ON RA, NO SOB, NO ACUTE RESP DISTRESS NOTED. IV ACCESS ON LFA #20 INFUSING NS@75ML/HR, PATENT, NO S/SX OF INFX/INFILTRATION. NOTED WITH BRIGHT RED BLOOD WITHOUT CLOTS. NO BLADDER DISTENTION NOTED, SKIN INTACT ON PERINEAL/VAGINAL AREA. KEPT PT CLEAN, DRY AND COMFORTABLE. SAFETY PRECAUTIONS IMPLEMENTED.WITH BILATERAL SOFT WRIST RESTRAINTS IN PLACE PATIENT IS TRYING TO GET OUT OF BED. BED LOCKED AND IN LOWEST POSITION. WILL CONTINUE TO MONITOR.
[2022-06-21] MEDS: CEFTRIAXONE 1 G in IV D5W 50 ML IV SCH (21:36)
[2022-06-21] MEDS: ATORVASTATIN 10 MG TABLET PO SCH (21:36)
[2022-06-22] VITALS: BP 138/63
[2022-06-22 06:40] LABS: BASOPHILS % (AUTO) 0.2 % (0.0-2.0); EOSINOPHILS % (AUTO) 0.8 % (0.0-6.0); HEMATOCRIT 38 % (33-45); HEMOGLOBIN 12.6 g/dL (11.5-14.8); LYMPHOCYTES # (AUTO) 1.1 K/uL (0.8-4.8); LYMPHOCYTES % (AUTO) 10.3 % (20.0-44.0); MEAN CORPUSCULAR HGB CONC 33 g/dl (31.0-36.0); MEAN CORPUSCULAR VOLUME 97 fL (82-100); MONOCYTES # (AUTO) 1.3 K/uL (0.1-1.30); MONOCYTES % (AUTO) 11.7 % (2.0-12.0); NEUTROPHILS # (AUTO) 8.6 K/uL (1.8-8.9); PLATELET COUNT (AUTO) 262 K/uL (150-450); RED BLOOD CELL COUNT(AUTO) 3.97 MIL/uL (4.0-5.2); WHITE BLOOD COUNT (AUTO) 11.1 K/uL (4.3-11.0)
--- NOTE | 2022-06-22 06:40 | NUR ---
RN NOTES PT ASLEEP, ORIENTED TO SELF ONLY WITH EPISODES OF CONFUSION, REMAINS AT BASELINE MENTAL STATUS. DENIES PAIN/DISCOMFORT AT THIS TIME. ON RA, NO SOB, NO ACUTE RESP DISTRESS NOTED. IV ACCESS ON LFA #20 INFUSING NS@75ML/HR, PATENT, NO S/SX OF INFX/INFILTRATION. PT STILL NOTED WITH PINKISH URINE OUTPUT . SKIN INTACT ON PERINEAL/VAGINAL AREA. KEPT PT CLEAN, DRY AND COMFORTABLE.STILL WITH BILATERAL SOFT WRIST RESTRAINTS IN PLACE. CIRCULATION CHECK Q2H RENDERED. ALL NEEDS ANTICIPATED. SAFETY PRECAUTIONS IMPLEMENTED: BED LOCKED AND IN LOWEST POSITION. WILL ENDORSED TO NEXT NURSE FOR NINA.
[2022-06-22 07:00] LABS: CALCIUM, SERUM 8.1 mg/dL (8.5-10.1); CREATININE 0.8 mg/dL (0.6-1.3); MAGNESIUM 2.1 mg/dL (1.8-2.4); PHOSPHORUS 3.1 mg/dL (2.5-4.9); POTASSIUM 3.2 mmol/L (3.5-5.1)
[2022-06-22 08:00] VITALS: BP 130/53
[2022-06-22] MEDS: ENSURE ENLIVE 237 ML LIQUID (VANILLA) PO SCH ×3 (08:09→16:14)
[2022-06-22] MEDS: LEVOTHYROXINE SODIUM 50 MCG TABLET PO SCH (08:09)
[2022-06-22] MEDS: DOCUSATE SODIUM 100 MG CAPSULE PO SCH ×2 (08:09→16:14)
[2022-06-22] MEDS: AMLODIPINE BESYLATE 5 MG TABLET PO SCH (08:10)
[2022-06-22] MEDS: IV NS 0.9% 1,000 ML IV PRN ×2 (09:09→22:26)
--- NOTE | 2022-06-22 09:33 | NUR ---
INFORMED DR FUENTES REGARDING K-3.2 TODAY VIA TEXT
--- NOTE | 2022-06-22 09:40 | NUR ---
MS OPENING NOTE RECEIVED PATIENT IN BED SLEEPING, ALERT AND VERBALLY RESPONSIVE WHEN AWAKEN, NOTED . DENIES PAIN/DISCOMFORT AT THIS TIME. ON RA, NO SOB, NO ACUTE RESP DISTRESS NOTED. ON PUREWICK NOTED WITH RED URINE. BILATERAL SOFT WRIST RESTRAINT NOTED, CHECK FOR SKIN CIRCULATION. SAFETY PRECAUTIONS IMPLEMENTED: BED LOCKED AND IN LOWEST POSITION. PLAN OF CARE CONTINUE.
[2022-06-22] MEDS ORDERED: POTASSIUM CHLORIDE 20 MEQ TAB.PRT.SR PO ONE (10:00)
[2022-06-22] MEDS ORDERED: QUETIAPINE FUMARATE 25 MG TABLET PO PRN (12:30)
[2022-06-22 16:00] VITALS: BP 106/59
[2022-06-22] MEDS: OXCARBAZEPINE 150 MG TABLET PO SCH (16:14)
--- NOTE | 2022-06-22 18:32 | NUR ---
PATIENT IS AWAKE, ALERT, ORIENTED X1, CONFUSED, RESTING IN BED COMFORTABLY, NO SIGNS OF IN DISTRESS, UNLABORED BREATHING ON ROOM AIR, SPO2-98%, VITAL SIGNS ARE STABLE, IV LINE IS PATENT RUNNING WITH NS @75ML/HR. BED IN LOW POSITION, SIDE RAILS UP, CALL LIGHT WITHIN REACH.
--- NOTE | 2022-06-22 19:46 | NUR ---
SLY/RN RECEIVED PATIENT LYING IN BED AWAKE, ALERT, ORIENTED X1, APPEARS COMFORTABLE, NO SIGNS OF DISTRESS NOTED, BILATERAL SOFT WRIST RESTRAINTS NOTE, WILL MONITOR.
[2022-06-22] MEDS: CEFTRIAXONE 1 G in IV D5W 50 ML IV SCH (21:58)
[2022-06-22] MEDS: ATORVASTATIN 10 MG TABLET PO SCH (21:58)
[2022-06-23 04:00] VITALS: BP 109/66
--- NOTE | 2022-06-23 06:15 | NUR ---
SLY/RN PATIENT IS STILL SLEEPING AT THIS TIME, NO SIGNS OF DISTRESS NOTED, CALL LIGHT IN REACH, ALL NEEDS ATTENDED AT THIS TIME, WILL CONTINUE TO MONITOR.
--- NOTE | 2022-06-23 07:05 | NUR ---
RN MED SURGE OPEN NOTE: ALERT AND ORIENTED TO NAME. CONFUSED AND DISORIENTED TO TIME, PLACE AND SITUATION. REORIENTED NEEDED. UNLABORED BREATHING SATING AT 97 %. NS IVF ON LEFT FOREARM RUNNING AT 75 ML/HR. IV PERIPHERAL INTACT, CLEAN DRESSING, NO S/S OF COMPLICATIONS.PURE WICK ON WITH URINE NOTED ORANGE. BILATERAL SOFT WRIST RESTRAINTS ON. NO SKIN BREAKDOWN, CIRCULATION IS WITHIN MOISES. CONTINUE TO NOTE FACIAL FOREHEAD. YELLOW AND PURPLE SKIN DISCOLORATIONS. HOB ELEVATED SEMI-FOWLERS, BED IN IN LOW POSITION, LOCKED, EXIT ALARM ON. BILATERAL HALF SIDE RAILS UP X2. CALL LIGHT IN REACH. KEPT CLEAN AND COMFORTABLE.
[2022-06-23 08:00] VITALS: BP 129/97
[2022-06-23] MEDS: LEVOTHYROXINE SODIUM 50 MCG TABLET PO SCH (08:22)
[2022-06-23] MEDS: ENSURE ENLIVE 237 ML LIQUID (VANILLA) PO SCH ×3 (08:26→17:33)
[2022-06-23] MEDS: OXCARBAZEPINE 150 MG TABLET PO SCH ×2 (09:12→17:01)
[2022-06-23] MEDS: ACETAMINOPHEN 325 MG TABLET PO PRN ×2 (09:12→17:01)
[2022-06-23] MEDS: DOCUSATE SODIUM 100 MG CAPSULE PO SCH ×2 (09:12→17:01)
[2022-06-23] MEDS: AMLODIPINE BESYLATE 5 MG TABLET PO SCH (09:13)
[2022-06-23 09:54] LABS: BASOPHILS # (AUTO) 0.1 K/uL (0.0-0.2); BASOPHILS % (AUTO) 0.8 % (0.0-2.0); EOSINOPHILS % (AUTO) 3.1 % (0.0-6.0); HEMATOCRIT 37 % (33-45); HEMOGLOBIN 12.2 g/dL (11.5-14.8); LYMPHOCYTES # (AUTO) 1.2 K/uL (0.8-4.8); LYMPHOCYTES % (AUTO) 16.7 % (20.0-44.0); MEAN CORPUSCULAR HGB CONC 33 g/dl (31.0-36.0); MEAN CORPUSCULAR VOLUME 97 fL (82-100); MONOCYTES # (AUTO) 0.8 K/uL (0.1-1.30); MONOCYTES % (AUTO) 10.8 % (2.0-12.0); NEUTROPHILS # (AUTO) 5.1 K/uL (1.8-8.9); NEUTROPHILS % (AUTO) 68.6 % (43.0-81.0); PLATELET COUNT (AUTO) 304 K/uL (150-450); RED BLOOD CELL COUNT(AUTO) 3.82 MIL/uL (4.0-5.2); WHITE BLOOD COUNT (AUTO) 7.4 K/uL (4.3-11.0)
[2022-06-23 10:10] LABS: CALCIUM, SERUM 8.5 mg/dL (8.5-10.1); CARBON DIOXIDE 28 mmol/L (21-32); CHLORIDE 100 mmol/L (98-107); CREATININE 0.8 mg/dL (0.6-1.3); GLUCOSE 183 mg/dL (74-106); MAGNESIUM 2.1 mg/dL (1.8-2.4); PHOSPHORUS 2.6 mg/dL (2.5-4.9); POTASSIUM 3.2 mmol/L (3.5-5.1); SODIUM SERUM 135 mmol/L (136-145); UREA NITROGEN, BLOOD 20 mg/dL (7-18)
[2022-06-23 12:00] VITALS: BP 123/78
[2022-06-23] MEDS ORDERED: POTASSIUM CHLORIDE 20 MEQ POWDER PACKET PO ONE (12:30)
[2022-06-23] MEDS: IV NS 0.9% 1,000 ML IV PRN (13:38)
[2022-06-23] MEDS ORDERED: OXCARBAZEPINE 150 MG TABLET PO ONE (17:30)
[2022-06-23] MEDS: risperiDONE 0.25 MG TABLET PO SCH (17:33)
--- NOTE | 2022-06-23 18:45 | NUR ---
RN MED SURGE CLOSING NOTE: ALERT AND ORIENTED TO NAME. CONFUSED AND DISORIENTED TO TIME, PLACE AND SITUATION. FORGETFUL. REORIENTED NEEDED. UNLABORED BREATHING SATING AT 97 %. NS IVF ON LEFT FOREARM RUNNING AT 75 ML/HR. NO A/R TO IV ABX. IV PERIPHERAL INTACT, CLEAN DRESSING, NO S/S OF COMPLICATIONS.PURE WICK ON WITH URINE NOTED ORANGE. CONTINUE TO NOTE FACIAL FOREHEAD. YELLOW AND PURPLE SKIN DISCOLORATIONS. PO FLUIDS TAKEN WELL. ABLE TO EAT INDEPENDENTLY WITH SUPERVISION. MOIST ORAL MUCOSA. KEPT CLEAN AND DRY.MOISTURIZER LOTION APPLIED TO SKIN. TYLENOL GIVEN PRN TIMES TWO FOR GENERALIZED PAIN AND EFFECTIVE. TURNED AND REPOSITIONED. FALL PRECAUTIONS MAINTAINED. HOB ELEVATED SEMI-FOWLERS, BED IN IN LOW POSITION, LOCKED, EXIT ALARM ON. BILATERAL HALF SIDE RAILS UP X2. CALL LIGHT IN REACH. KEPT CLEAN AND COMFORTABLE
--- NOTE | 2022-06-23 19:30 | NUR ---
PT RECEIVED AWAKE. A/OX1. TRYING TO GET OUT OF BED. CONFUSED AND DISORIENTED. TRYING TO PULL OUT IV LINE. NEEDS FREQUENT REDIRECTION. IVF ON LEFT FOREARM INFUSING NS AT 75 ML/HR. PURE WICK ON WITH URINE NOTED ORANGE. NOTED FACIAL FOREHEAD. YELLOW AND PURPLE SKIN DISCOLORATIONS. SAFETY MEASURES IN PLACE. WILL CONTINUE PLAN OF CARE.
[2022-06-23 20:00] VITALS: BP 151/69
[2022-06-23] MEDS: ATORVASTATIN 10 MG TABLET PO SCH (22:05)
[2022-06-24] MEDS: IV NS 0.9% 1,000 ML IV PRN (03:28)
[2022-06-24 04:00] VITALS: BP 146/62
--- NOTE | 2022-06-24 06:26 | NUR ---
PT ASLEEP. A/OX1. TRYING TO GET OUT OF BED. CONFUSED AND DISORIENTED. TRYING TO PULL OUT IV LINE. NEEDS FREQUENT REDIRECTION. IVF ON LEFT FOREARM INFUSING NS AT 75 ML/HR. PURE WICK ON WITH URINE NOTED ORANGE. NOTED FACIAL FOREHEAD. YELLOW AND PURPLE SKIN DISCOLORATIONS. RESTRAINTS CHECKED FOR CIRCULATION. KEPT CLEAN AND DRY. NEEDS ATTENDED. ALL SAFETY MEASURES MAINTAINED. WILL ENDORSE TO NEXT NURSE ON DUTY FOR CONTINUITY OF CARE.
--- NOTE | 2022-06-24 07:22 | NUR ---
RN OPEN OPENNOTE PATIENT IN BED AWAKE, ALERT AND VERBALLY RESPONSIVE, CONFUSED. LEFT FOREARM IV ACCESS PATENT AND INTACT, FLUSHES WELL WITH NS @75ML RUNNING. ORIENTED TO SELF ONLY. DENIES PAIN/DISCOMFORT AT THIS TIME. ON RA, NO SOB, NO ACUTE RESP DISTRESS NOTED. SAFETY PRECAUTIONS IMPLEMENTED: BED LOCKED AND IN LOWEST POSITION. WILL ENDORSE TCONTINUE TO MONITOR
[2022-06-24] MEDS: LEVOTHYROXINE SODIUM 50 MCG TABLET PO SCH (07:32)
[2022-06-24] MEDS: ENSURE ENLIVE 237 ML LIQUID (VANILLA) PO SCH ×2 (08:00→13:27)
[2022-06-24 08:27] LABS: CALCIUM, SERUM 8.5 mg/dL (8.5-10.1); CREATININE 0.7 mg/dL (0.6-1.3); POTASSIUM 3.5 mmol/L (3.5-5.1)
[2022-06-24] MEDS ORDERED: OXCARBAZEPINE 150 MG TABLET PO SCH (09:00)
[2022-06-24] MEDS: DOCUSATE SODIUM 100 MG CAPSULE PO SCH (09:41)
[2022-06-24] MEDS: AMLODIPINE BESYLATE 5 MG TABLET PO SCH (09:41)
[2022-06-24] MEDS: risperiDONE 0.25 MG TABLET PO SCH ×2 (09:41→13:26)
[2022-06-24 12:00] VITALS: BP 118/60
--- NOTE | 2022-06-24 14:48 | NUR ---
rn note PATIENT IS AT STABLE HEALTH CONDITION , RECEIVED AN ORDER TO DOSCHARGE . WRITTEN AND VERBAL DISCHARGE INSTRUCTIONS PROVIDED TP[ THE [facility] . PATIENT WAS PICKED UP BY THE SAME [facility] GOING TO THE [facility] .PATIENT DISCHARGED FROM [facility]
== END 2022-06-24 14:40 | disposition home health service (06) | DRG 640 ==
LOC: ER 19:12 → MEDSG1 06-20 00:38
PROVIDERS: ADMIT Nurse Practitioner Acute Care; ATTEND Nurse Practitioner Acute Care
DX: E86.0 Dehydration (principal); G93.41 Metabolic encephalopathy; N13.30 Unspecified hydronephrosis; F05 Delirium due to known physiological condition; N39.0 Urinary tract infection, site not specified; E87.1 Hypo-osmolality and hyponatremia; Z20.822 Contact with and (suspected) exposure to COVID-19; G30.9 Alzheimer's disease, unspecified; F02.80 Dementia in other diseases classified elsewhere, unspecified severity, without behavioral disturbance, psychotic disturbance, mood disturbance, and anxiety; E78.5 Hyperlipidemia, unspecified; M19.90 Unspecified osteoarthritis, unspecified site; Z79.899 Other long term (current) drug therapy; R79.89 Other specified abnormal findings of blood chemistry; I10 Essential (primary) hypertension; E88.09 Other disorders of plasma-protein metabolism, not elsewhere classified; K57.30 Diverticulosis of large intestine without perforation or abscess without bleeding; R31.9 Hematuria, unspecified; B96.89 Other specified bacterial agents as the cause of diseases classified elsewhere; K59.00 Constipation, unspecified; E03.9 Hypothyroidism, unspecified; E86.1 Hypovolemia; E87.6 Hypokalemia; Z78.1 Physical restraint status; F31.9 Bipolar disorder, unspecified
CPT/HCPCS: 36415; 70450-TC; 80048-TC; 80061-TC; 80076-TC; 81001; 83605-TC; 83690-TC; 83735-TC; 84100-TC; 84443-TC; 84484-TC; 85025-TC; 85730-TC; 87081-TC; 87086-TC; 97112-TC; 97116-TC; 97530-TC; C9803; G0378; G0480; J0696; J7030; J7060; Q9967

== ENCOUNTER 2022-10-16 12:46 | Emergency (ER) | payer MEDICARE ==
[~2022-10-16] VITALS: Ht 162.6 cm; Wt 55.3 kg
[~2022-10-16 12:46] MED LIST changes: -CIPR-262 PO
--- NOTE | 2022-10-16 15:40 | NUR ---
Called [facility] and set up [facility] transport eta [id number] notified Nurse ismael
--- NOTE | 2022-10-16 16:51 | NUR ---
REPORT GIVEN TO ANDRIA HERNÁNDEZ AT [facility] REGARDING RESULTS OF CT AND D/C FROM ER AND RETURN TO THEIR FACILITY.
[2022-10-16 18:49] VITALS: BP 124/82
== END 2022-10-16 18:50 | disposition hospice, inpatient (51) ==
LOC: ER 12:48
DX: S00.83XA Contusion of other part of head, initial encounter (principal); I10 Essential (primary) hypertension; E78.5 Hyperlipidemia, unspecified; F03.90 Unspecified dementia, unspecified severity, without behavioral disturbance, psychotic disturbance, mood disturbance, and anxiety; W18.30XA Fall on same level, unspecified, initial encounter; Y93.89 Activity, other specified; Y92.89 Other specified places as the place of occurrence of the external cause; Y99.8 Other external cause status
CPT/HCPCS: 70450-TC; 72125-TC

== ENCOUNTER 2023-01-03 17:02 | Inpatient (IN) | payer MEDICARE ==
[~2023-01-03] VITALS: Ht 152.4 cm; Wt 42.2 kg
[2023-01-03] MEDS ORDERED: OXCA150T5 PO (18:19)
[2023-01-03] MEDS ORDERED: VALS160T2 PO (18:19)
[2023-01-03] MEDS ORDERED: DILT-4 PO (18:19)
[2023-01-03] MEDS ORDERED: PANT20TA2 PO (18:19)
[2023-01-03] MEDS ORDERED: ESCI10TA PO (18:19)
[2023-01-03] MEDS ORDERED: DIGO250T PO (18:19)
[2023-01-03] MEDS ORDERED: LORA-259 PO (18:19)
[2023-01-03] MEDS ORDERED: RISP0.5T65 PO (18:19)
[2023-01-03 18:23] LABS: BASOPHILS % (AUTO) 0.4 % (0.0-2.0); EOSINOPHILS # (AUTO) 0.2 K/uL (0.0-0.7); EOSINOPHILS % (AUTO) 3.6 % (0.0-6.0); HEMATOCRIT 36 % (33-45); HEMOGLOBIN 11.7 g/dL (11.5-14.8); LYMPHOCYTES # (AUTO) 1.4 K/uL (0.8-4.8); LYMPHOCYTES % (AUTO) 24.2 % (20.0-44.0); MEAN CORPUSCULAR HEMOGLOBIN 32 PG (26.0-33.0); MEAN CORPUSCULAR HGB CONC 33 g/dl (31.0-36.0); MEAN CORPUSCULAR VOLUME 98 fL (82-100); MONOCYTES # (AUTO) 0.6 K/uL (0.1-1.30); NEUTROPHILS # (AUTO) 3.6 K/uL (1.8-8.9); NEUTROPHILS % (AUTO) 61.8 % (43.0-81.0); PLATELET COUNT (AUTO) 236 K/uL (150-450); RED BLOOD CELL COUNT(AUTO) 3.68 MIL/uL (4.0-5.2); RED CELL DISTRIBUTION WIDTH 13.5 % (11.5-15.0); WHITE BLOOD COUNT (AUTO) 5.8 K/uL (4.3-11.0)
[2023-01-03] MEDS ORDERED: ATOR20TA PO (18:26)
[2023-01-03 18:34] LABS: CALCIUM, SERUM 8.9 mg/dL (8.5-10.1); CARBON DIOXIDE 24 mmol/L (21-32); CHLORIDE 108 mmol/L (98-107); CREATININE 0.8 mg/dL (0.6-1.3); GLUCOSE 122 mg/dL (74-106); POTASSIUM 3.8 mmol/L (3.5-5.1); SODIUM SERUM 141 mmol/L (136-145); UREA NITROGEN, BLOOD 34 mg/dL (7-18)
[2023-01-03 18:40] LABS: ACETAMINOPHEN < 10 ug/ml (10-30); ALANINE AMINOTRANSFERASE 26 U/L (12-78); ALBUMIN 3.2 g/dL (3.4-5.0); ALCOHOL, BLOOD < 3 mg/dL (0-10); ALKALINE PHOSPHATASE 93 U/L (46-116); ASPARTATE AMINOTRANSFERASE 17 U/L (15-37); BILIRUBIN,DIRECT 0.1 mg/dL (0.0-0.2); BILIRUBIN,TOTAL 0.2 mg/dL (0.2-1.0); SALICYLATE < 2.3 mg/dL (2.8-20.0); TOTAL PROTEIN, SERUM 6.2 g/dL (6.4-8.2)
[2023-01-03 19:15] LABS: AMPHETAMINE, URINE NEGATIVE (NEGATIVE); BARBITURATE, URINE NEGATIVE (NEGATIVE); BENZODIAZEPINE, URINE NEGATIVE (NEGATIVE); CANNABINOID, URINE NEGATIVE (NEGATIVE); COCCAINE, URINE NEGATIVE (NEGATIVE); OPIATE, URINE NEGATIVE (NEGATIVE); PHENCYCLIDINE SCREEN,URINE NEGATIVE (NEGATIVE)
[2023-01-03 19:39] LABS: APPEARANCE,URINE CLOUDY (CLEAR); BILIRUBIN,URINE 1+ (NEGATIVE); BLOOD, URINE NEGATIVE Ery/uL (NEGATIVE); COLOR,URINE YELLOW (YELLOW); KETONES,URINE 1+ mg/dL (NEGATIVE); LEUKOCYTE ESTERASE ,URINE 2+ (NEGATIVE); NITRITE, URINE NEGATIVE (NEGATIVE); PROTEIN,URINE 1+ mg/dl (NEGATIVE); UGLUCOSE NEGATIVE (NEGATIVE)
[2023-01-03 19:52] LABS: ADD URINE CULTURE YES; BACTERIA,URINE 4+ /HPF (None Seen); RBC,URINE 0-2 /HPF (0-2); SQUAMOUS EPITHELIAL CELL,UR 0-2 /HPF (None Seen); WBC,URINE 21-50 /HPF (0-3)
[2023-01-03 20:03] VITALS: O2SAT 98
[2023-01-03] MEDS ORDERED: CEFTRIAXONE 1GM BAG (ER ONLY) 1 GM/50 ML PIGGYBACK IV ONE (22:00)
[2023-01-03] MEDS ORDERED: CEFTRIAXONE 1GM BAG (ER ONLY) 50 ML IV ONE (22:03)
[2023-01-03] MEDS ORDERED: Z GUARD REMEDY 4 OZ OINT TP PRN (22:30)
[2023-01-03] MEDS ORDERED: PERMETHRIN 5% CRM 60 GM TUBE TP ONE (22:30)
[2023-01-03] MEDS ORDERED: MAGNESIUM HYDROXIDE 30 ML UDC PO PRN (22:30)
[2023-01-03] MEDS ORDERED: ACETAMINOPHEN 325 MG TABLET PO PRN (22:30)
[2023-01-03] MEDS ORDERED: MAG HYDROX/AL HYDROX/SIMETH 30 ML UDC PO PRN (22:30)
[2023-01-03] MEDS ORDERED: ONDANSETRON HCL/PF 4 MG/2 ML VIAL IVP PRN (22:30)
[2023-01-03] MEDS ORDERED: LORAZEPAM 0.5 MG TABLET PO PRN (23:00)
[2023-01-04 08:00] VITALS: BP 121/52; TEMP 98.2; O2SAT 92
[2023-01-04] MEDS: OXCARBAZEPINE 150 MG TABLET PO SCH ×4 (09:22→21:16)
[2023-01-04] MEDS: risperiDONE 0.25 MG TABLET PO SCH ×4 (09:23→21:16)
[2023-01-04] MEDS: PANTOPRAZOLE 40 MG TABLET.DR PO SCH (09:23)
[2023-01-04] MEDS: DILTIAZEM HCL CD 240 MG PO SCH (09:23)
[2023-01-04] MEDS: ESCITALOPRAM OXALATE (10 MG) 10 MG TABLET PO SCH (09:24)
[2023-01-04 11:49] LABS: BASOPHILS % (AUTO) 0.8 % (0.0-2.0); EOSINOPHILS # (AUTO) 0.3 K/uL (0.0-0.7); EOSINOPHILS % (AUTO) 6.5 % (0.0-6.0); HEMATOCRIT 35 % (33-45); HEMOGLOBIN 11.7 g/dL (11.5-14.8); LYMPHOCYTES # (AUTO) 1.6 K/uL (0.8-4.8); LYMPHOCYTES % (AUTO) 29.6 % (20.0-44.0); MEAN CORPUSCULAR HEMOGLOBIN 32 PG (26.0-33.0); MEAN CORPUSCULAR HGB CONC 34 g/dl (31.0-36.0); MEAN CORPUSCULAR VOLUME 96 fL (82-100); MONOCYTES # (AUTO) 0.6 K/uL (0.1-1.30); MONOCYTES % (AUTO) 11.2 % (2.0-12.0); NEUTROPHILS # (AUTO) 2.8 K/uL (1.8-8.9); NEUTROPHILS % (AUTO) 51.9 % (43.0-81.0); PLATELET COUNT (AUTO) 244 K/uL (150-450); RED CELL DISTRIBUTION WIDTH 13.3 % (11.5-15.0); WHITE BLOOD COUNT (AUTO) 5.3 K/uL (4.3-11.0)
[2023-01-04 11:57] LABS: CALCIUM, SERUM 8.8 mg/dL (8.5-10.1); CARBON DIOXIDE 28 mmol/L (21-32); CHLORIDE 106 mmol/L (98-107); CREATININE 0.5 mg/dL (0.6-1.3); GLUCOSE 123 mg/dL (74-106); MAGNESIUM 1.8 mg/dL (1.8-2.4); PHOSPHORUS 3.1 mg/dL (2.5-4.9); POTASSIUM 3.6 mmol/L (3.5-5.1); SODIUM SERUM 140 mmol/L (136-145); UREA NITROGEN, BLOOD 23 mg/dL (7-18)
[2023-01-04] MEDS: VALSARTAN 80 MG TABLET PO SCH (12:50)
[2023-01-04] MEDS: DIGOXIN 0.25 MG TABLET PO SCH (13:38)
[2023-01-04 16:00] VITALS: BP 81/39; TEMP 98.1; O2SAT 90
[2023-01-04 20:00] VITALS: BP 109/47; TEMP 97.5; O2SAT 97
[2023-01-04] MEDS: ATORVASTATIN 10 MG TABLET PO SCH (21:14)
[2023-01-04] MEDS: IV NS 0.9% 1,000 ML IV PRN (21:37)
[2023-01-05 06:31] LABS: BASOPHILS % (AUTO) 0.6 % (0.0-2.0); EOSINOPHILS # (AUTO) 0.3 K/uL (0.0-0.7); EOSINOPHILS % (AUTO) 4.6 % (0.0-6.0); HEMATOCRIT 35 % (33-45); HEMOGLOBIN 11.7 g/dL (11.5-14.8); LYMPHOCYTES # (AUTO) 1.5 K/uL (0.8-4.8); LYMPHOCYTES % (AUTO) 27.8 % (20.0-44.0); MEAN CORPUSCULAR HEMOGLOBIN 32 PG (26.0-33.0); MEAN CORPUSCULAR HGB CONC 34 g/dl (31.0-36.0); MEAN CORPUSCULAR VOLUME 96 fL (82-100); MONOCYTES # (AUTO) 0.5 K/uL (0.1-1.30); MONOCYTES % (AUTO) 9.3 % (2.0-12.0); NEUTROPHILS # (AUTO) 3.2 K/uL (1.8-8.9); NEUTROPHILS % (AUTO) 57.7 % (43.0-81.0); PLATELET COUNT (AUTO) 256 K/uL (150-450); RED BLOOD CELL COUNT(AUTO) 3.62 MIL/uL (4.0-5.2); RED CELL DISTRIBUTION WIDTH 12.8 % (11.5-15.0); WHITE BLOOD COUNT (AUTO) 5.6 K/uL (4.3-11.0)
[2023-01-05 06:59] LABS: ALANINE AMINOTRANSFERASE 23 U/L (12-78); ALKALINE PHOSPHATASE 91 U/L (46-116); ASPARTATE AMINOTRANSFERASE 16 U/L (15-37); BILIRUBIN,TOTAL 0.3 mg/dL (0.2-1.0); CALCIUM, SERUM 8.9 mg/dL (8.5-10.1); CARBON DIOXIDE 25 mmol/L (21-32); CHLORIDE 110 mmol/L (98-107); CREATININE 0.4 mg/dL (0.6-1.3); GLUCOSE 119 mg/dL (74-106); PHOSPHORUS 2.8 mg/dL (2.5-4.9); POTASSIUM 3.5 mmol/L (3.5-5.1); SODIUM SERUM 142 mmol/L (136-145); TOTAL PROTEIN, SERUM 6.1 g/dL (6.4-8.2); UREA NITROGEN, BLOOD 17 mg/dL (7-18)
[2023-01-05 07:00] VITALS: BP 124/43; TEMP 97.9; O2SAT 97
[2023-01-05] MEDS: OXCARBAZEPINE 150 MG TABLET PO SCH ×4 (08:51→21:36)
[2023-01-05] MEDS: PANTOPRAZOLE 40 MG TABLET.DR PO SCH (08:51)
[2023-01-05] MEDS: DILTIAZEM HCL CD 240 MG PO SCH (08:52)
[2023-01-05] MEDS: risperiDONE 0.25 MG TABLET PO SCH ×4 (08:52→21:36)
[2023-01-05] MEDS: ESCITALOPRAM OXALATE (10 MG) 10 MG TABLET PO SCH (08:52)
[2023-01-05] MEDS: VALSARTAN 80 MG TABLET PO SCH (08:54)
[2023-01-05] MEDS: IV NS 0.9% 1,000 ML IV PRN ×2 (12:03→23:14)
[2023-01-05] MEDS: DIGOXIN 0.25 MG TABLET PO SCH (12:15)
[2023-01-05 16:00] VITALS: BP 94/50; TEMP 97.7; O2SAT 96
[2023-01-05 19:00] VITALS: BP 107/42; TEMP 97.8; O2SAT 97
[2023-01-05] MEDS: ATORVASTATIN 10 MG TABLET PO SCH (21:37)
[2023-01-06 07:00] VITALS: BP 123/68; TEMP 97.6; O2SAT 97
[2023-01-06] MEDS: DILTIAZEM HCL CD 240 MG PO SCH (08:28)
[2023-01-06] MEDS: OXCARBAZEPINE 150 MG TABLET PO SCH ×4 (08:28→20:34)
[2023-01-06] MEDS: PANTOPRAZOLE 40 MG TABLET.DR PO SCH (08:28)
[2023-01-06] MEDS: VALSARTAN 80 MG TABLET PO SCH (08:29)
[2023-01-06] MEDS: risperiDONE 0.25 MG TABLET PO SCH ×4 (08:29→20:34)
[2023-01-06] MEDS: ESCITALOPRAM OXALATE (10 MG) 10 MG TABLET PO SCH (08:29)
[2023-01-06] MEDS: DIGOXIN 0.25 MG TABLET PO SCH (12:20)
[2023-01-06] MEDS: IV NS 0.9% 1,000 ML IV PRN (13:43)
[2023-01-06] MEDS: CEFTRIAXONE 1 G in IV D5W 50 ML IV SCH (15:17)
[2023-01-06] MEDS: IV D5/ 0.9% NACL 1,000 ML IV PRN (15:17)
[2023-01-06 16:00] VITALS: BP 75/31; TEMP 97.4; O2SAT 96
[2023-01-06] MEDS: ENSURE ENLIVE CHOC 237 ML CAN PO SCH (16:41)
[2023-01-06 17:42] VITALS: BP 109/47; TEMP 97.4
[2023-01-06 19:00] VITALS: BP 100/58; TEMP 97.2; O2SAT 96
[2023-01-06] MEDS: ATORVASTATIN 10 MG TABLET PO SCH (20:34)
[2023-01-07] MEDS: PANTOPRAZOLE 40 MG TABLET.DR PO SCH (07:44)
[2023-01-07] MEDS: ENSURE ENLIVE CHOC 237 ML CAN PO SCH ×2 (07:45→16:57)
[2023-01-07 08:00] VITALS: BP 128/79; TEMP 97.8; O2SAT 94
[2023-01-07] MEDS: OXCARBAZEPINE 150 MG TABLET PO SCH ×4 (08:55→21:07)
[2023-01-07] MEDS: ESCITALOPRAM OXALATE (10 MG) 10 MG TABLET PO SCH (08:55)
[2023-01-07] MEDS: risperiDONE 0.25 MG TABLET PO SCH ×4 (08:55→21:07)
[2023-01-07] MEDS: VALSARTAN 80 MG TABLET PO SCH (08:56)
[2023-01-07] MEDS: DILTIAZEM HCL CD 240 MG PO SCH (08:56)
[2023-01-07] MEDS: DIGOXIN 0.25 MG TABLET PO SCH (12:55)
[2023-01-07] MEDS: IV D5/ 0.9% NACL 1,000 ML IV PRN (14:20)
[2023-01-07] MEDS: CEFTRIAXONE 1 G in IV D5W 50 ML IV SCH (14:24)
[2023-01-07 16:00] VITALS: BP 89/62; TEMP 98.2; O2SAT 96
[2023-01-07 20:00] VITALS: BP 101/36; TEMP 97.7; O2SAT 95
[2023-01-07] MEDS: ATORVASTATIN 10 MG TABLET PO SCH (21:07)
[2023-01-08] MEDS: IV D5/ 0.9% NACL 1,000 ML IV PRN ×2 (04:51→21:26)
[2023-01-08 07:00] VITALS: BP 134/50; TEMP 97.6; O2SAT 91
[2023-01-08] MEDS: risperiDONE 0.25 MG TABLET PO SCH ×4 (08:39→21:21)
[2023-01-08] MEDS: ENSURE ENLIVE CHOC 237 ML CAN PO SCH ×2 (08:39→17:07)
[2023-01-08] MEDS: ESCITALOPRAM OXALATE (10 MG) 10 MG TABLET PO SCH (08:39)
[2023-01-08] MEDS: PANTOPRAZOLE 40 MG TABLET.DR PO SCH (08:39)
[2023-01-08] MEDS: OXCARBAZEPINE 150 MG TABLET PO SCH ×4 (08:39→21:21)
[2023-01-08] MEDS: VALSARTAN 80 MG TABLET PO SCH (08:41)
[2023-01-08] MEDS: MEROPENEM 1 G in IV NS 0.9% 100 ML IV SCH ×2 (08:41→21:22)
[2023-01-08] MEDS: DILTIAZEM HCL CD 240 MG PO SCH (08:42)
[2023-01-08] MEDS: DIGOXIN 0.25 MG TABLET PO SCH (12:06)
[2023-01-08 16:00] VITALS: BP 109/42; TEMP 97.6; O2SAT 98
[2023-01-08] MEDS ORDERED: LORAZEPAM INJ 2 MG/ML VIAL IV ONE (20:00)
[2023-01-08] MEDS: ATORVASTATIN 10 MG TABLET PO SCH (21:21)
[2023-01-08 23:00] VITALS: BP 103/42; TEMP 98.2; O2SAT 94
[2023-01-09] MEDS: ENSURE ENLIVE CHOC 237 ML CAN PO SCH ×2 (08:00→16:54)
[2023-01-09] MEDS: PANTOPRAZOLE 40 MG TABLET.DR PO SCH (08:00)
[2023-01-09] MEDS: MEROPENEM 1 G in IV NS 0.9% 100 ML IV SCH ×2 (08:03→21:04)
[2023-01-09] MEDS: DILTIAZEM HCL CD 240 MG PO SCH (08:17)
[2023-01-09] MEDS: VALSARTAN 80 MG TABLET PO SCH (08:17)
[2023-01-09] MEDS: ESCITALOPRAM OXALATE (10 MG) 10 MG TABLET PO SCH (08:17)
[2023-01-09] MEDS: OXCARBAZEPINE 150 MG TABLET PO SCH ×4 (08:17→21:00)
[2023-01-09] MEDS: risperiDONE 0.25 MG TABLET PO SCH ×4 (08:17→21:00)
[2023-01-09 08:26] VITALS: BP 151/67; TEMP 97.6; O2SAT 97
[2023-01-09] MEDS ORDERED: LORAZEPAM INJ 2 MG/ML VIAL IV ONE (10:00)
[2023-01-09] MEDS: DIGOXIN 0.25 MG TABLET PO SCH (12:59)
[2023-01-09 16:11] VITALS: BP 95/49; TEMP 97.5; O2SAT 100
[2023-01-09] MEDS ORDERED: IV NS 0.9% 1,000 ML IV ONE (16:30)
[2023-01-09 17:15] VITALS: BP 101/54
[2023-01-09 17:55] VITALS: BP 116/66
[2023-01-09 20:00] VITALS: BP 95/45; TEMP 97.3; O2SAT 97
[2023-01-09] MEDS: IV D5/ 0.9% NACL 1,000 ML IV PRN (20:03)
[2023-01-09] MEDS: ATORVASTATIN 10 MG TABLET PO SCH (22:00)
[2023-01-10 00:10] VITALS: BP 130/80
[2023-01-10 00:41] VITALS: BP 93/43
[2023-01-10 07:09] LABS: BASOPHILS % (AUTO) 0.9 % (0.0-2.0); EOSINOPHILS # (AUTO) 0.2 K/uL (0.0-0.7); HEMATOCRIT 29 % (33-45); HEMOGLOBIN 9.9 g/dL (11.5-14.8); LYMPHOCYTES # (AUTO) 1.1 K/uL (0.8-4.8); LYMPHOCYTES % (AUTO) 24.8 % (20.0-44.0); MEAN CORPUSCULAR HEMOGLOBIN 33 PG (26.0-33.0); MEAN CORPUSCULAR HGB CONC 34 g/dl (31.0-36.0); MEAN CORPUSCULAR VOLUME 96 fL (82-100); MONOCYTES # (AUTO) 0.4 K/uL (0.1-1.30); MONOCYTES % (AUTO) 8.4 % (2.0-12.0); NEUTROPHILS # (AUTO) 2.7 K/uL (1.8-8.9); NEUTROPHILS % (AUTO) 60.9 % (43.0-81.0); PLATELET COUNT (AUTO) 226 K/uL (150-450); RED BLOOD CELL COUNT(AUTO) 3.04 MIL/uL (4.0-5.2); RED CELL DISTRIBUTION WIDTH 13.2 % (11.5-15.0); WHITE BLOOD COUNT (AUTO) 4.5 K/uL (4.3-11.0)
[2023-01-10 07:47] LABS: CALCIUM, SERUM 7.8 mg/dL (8.5-10.1); CARBON DIOXIDE 26 mmol/L (21-32); CHLORIDE 108 mmol/L (98-107); CREATININE 0.5 mg/dL (0.6-1.3); MAGNESIUM 1.5 mg/dL (1.8-2.4); PHOSPHORUS 2.1 mg/dL (2.5-4.9); POTASSIUM 3.1 mmol/L (3.5-5.1); SODIUM SERUM 140 mmol/L (136-145); UREA NITROGEN, BLOOD 13 mg/dL (7-18)
[2023-01-10 07:51] LABS: GLUCOSE 545 mg/dL (74-106)
[2023-01-10] MEDS ORDERED: INSULIN REGULAR, HUMAN 100 UNIT/ML 10 ML VIAL SQ ONE (08:30)
[2023-01-10] MEDS ORDERED: MERO1PIG IV (09:01)
[2023-01-10] MEDS: MEROPENEM 1 G in IV NS 0.9% 100 ML IV SCH (09:22)
[2023-01-10] MEDS: risperiDONE 0.25 MG TABLET PO SCH ×3 (09:22→16:43)
[2023-01-10] MEDS: DILTIAZEM HCL CD 240 MG PO SCH (09:23)
[2023-01-10] MEDS: OXCARBAZEPINE 150 MG TABLET PO SCH ×3 (09:23→16:43)
[2023-01-10] MEDS: ESCITALOPRAM OXALATE (10 MG) 10 MG TABLET PO SCH (09:23)
[2023-01-10] MEDS: VALSARTAN 80 MG TABLET PO SCH (09:23)
[2023-01-10] MEDS: ENSURE ENLIVE CHOC 237 ML CAN PO SCH ×2 (09:24→16:43)
[2023-01-10] MEDS ORDERED: MAGNESIUM OXIDE 400 MG TABLET PO ONE (09:30)
[2023-01-10] MEDS ORDERED: INSULIN REGULAR, HUMAN 100 UNIT/ML 3 ML VIAL SQ PRN (09:30)
[2023-01-10] MEDS ORDERED: DEXTROSE 50%-WATER 50 ML DISP.SYRIN IV PRN (09:30)
[2023-01-10] MEDS: PANTOPRAZOLE 40 MG TABLET.DR PO SCH (09:35)
[2023-01-10] MEDS ORDERED: POTASSIUM CHLORIDE 20 MEQ POWDER PACKET PO ONE (10:00)
[2023-01-10] MEDS: BLOOD SUGAR DIAGNOSTIC 1 EACH STRIP IN SCH ×2 (10:16→11:55)
[2023-01-10 12:15] VITALS: BP 160/87
[2023-01-10] MEDS: DIGOXIN 0.25 MG TABLET PO SCH (12:17)
[2023-01-10] MEDS ORDERED: NEUTRA PHOS 1 POWD.PACKET PO ONE (16:00)
[2023-01-10 16:21] VITALS: BP 106/46; TEMP 98.6; O2SAT 96
== END 2023-01-10 17:00 | DRG 689 ==
LOC: ER 17:09 → MED 21:16
PROVIDERS: ADMIT Nurse Practitioner Acute Care; ATTEND Internal Medicine
PROC: 05H533Z Insertion of Infusion Device into Right Subclavian Vein, Percutaneous Approach (ICD-10-PCS; principal; 2023-01-08)
PROC: B546ZZA Ultrasonography of Right Subclavian Vein, Guidance (ICD-10-PCS; 2023-01-08)
DX: N39.0 Urinary tract infection, site not specified (principal); G93.41 Metabolic encephalopathy; E44.0 Moderate protein-calorie malnutrition; Z68.1 Body mass index [BMI] 19.9 or less, adult; Z16.24 Resistance to multiple antibiotics; B86 Scabies; I48.91 Unspecified atrial fibrillation; E03.9 Hypothyroidism, unspecified; Z20.822 Contact with and (suspected) exposure to COVID-19; E78.5 Hyperlipidemia, unspecified; I10 Essential (primary) hypertension; E88.09 Other disorders of plasma-protein metabolism, not elsewhere classified; M19.90 Unspecified osteoarthritis, unspecified site; B96.89 Other specified bacterial agents as the cause of diseases classified elsewhere; F03.90 Unspecified dementia, unspecified severity, without behavioral disturbance, psychotic disturbance, mood disturbance, and anxiety
CPT/HCPCS: 36410; 36415; 70450-TC; 71045-TC; 71250-TC; 80048-TC; 80053-TC; 80076-TC; 81001; 82962-TC; 83735-TC; 84100-TC; 85025-TC; 87040-TC; 87086-TC; A4223; G0378; G0480; J0696; J1815; J2060; J2185; J7030; J7042; J7060

== ENCOUNTER 2023-01-11 01:21 | Emergency (ER) | payer MEDICARE ==
[~2023-01-11] VITALS: Ht 162.6 cm; Wt 49.9 kg
[~2023-01-11 01:21] MED LIST changes: +DIGO250T PO; +DILT-4 PO; +ESCI10TA PO; +LORA-259 PO; +MERO1PIG IV; +OXCA150T5 PO; +PANT20TA2 PO; +RISP0.5T65 PO; +VALS160T2 PO
[2023-01-11 03:03] LABS: BASOPHILS % (AUTO) 0.1 % (0.0-2.0); EOSINOPHILS # (AUTO) 0.1 K/uL (0.0-0.7); EOSINOPHILS % (AUTO) 0.8 % (0.0-6.0); HEMATOCRIT 31 % (33-45); HEMOGLOBIN 10.6 g/dL (11.5-14.8); LYMPHOCYTES # (AUTO) 0.9 K/uL (0.8-4.8); LYMPHOCYTES % (AUTO) 7.9 % (20.0-44.0); MEAN CORPUSCULAR HEMOGLOBIN 32 PG (26.0-33.0); MEAN CORPUSCULAR HGB CONC 34 g/dl (31.0-36.0); MEAN CORPUSCULAR VOLUME 96 fL (82-100); MONOCYTES # (AUTO) 0.8 K/uL (0.1-1.30); MONOCYTES % (AUTO) 7.2 % (2.0-12.0); NEUTROPHILS # (AUTO) 9.4 K/uL (1.8-8.9); PLATELET COUNT (AUTO) 229 K/uL (150-450); RED BLOOD CELL COUNT(AUTO) 3.27 MIL/uL (4.0-5.2); RED CELL DISTRIBUTION WIDTH 13.2 % (11.5-15.0); WHITE BLOOD COUNT (AUTO) 11.2 K/uL (4.3-11.0)
[2023-01-11 03:38] LABS: CALCIUM, SERUM 8.7 mg/dL (8.5-10.1); CARBON DIOXIDE 28 mmol/L (21-32); CHLORIDE 103 mmol/L (98-107); CREATININE 0.7 mg/dL (0.6-1.3); GLUCOSE 140 mg/dL (74-106); POTASSIUM 3.7 mmol/L (3.5-5.1); SODIUM SERUM 136 mmol/L (136-145); UREA NITROGEN, BLOOD 16 mg/dL (7-18)
[2023-01-11 06:27] LABS: APPEARANCE,URINE CLEAR (CLEAR); BILIRUBIN,URINE NEGATIVE (NEGATIVE); BLOOD, URINE NEGATIVE Ery/uL (NEGATIVE); COLOR,URINE YELLOW (YELLOW); KETONES,URINE NEGATIVE (NEGATIVE); LEUKOCYTE ESTERASE ,URINE NEGATIVE (NEGATIVE); NITRITE, URINE NEGATIVE (NEGATIVE); PROTEIN,URINE NEGATIVE (NEGATIVE); UGLUCOSE NEGATIVE (NEGATIVE); UROBILINOGEN,URINE 0.2 EU/dL (0.2)
[2023-01-11 07:59] VITALS: BP 127/52; TEMP 98.2; O2SAT 96
== END 2023-01-11 08:00 | disposition home or self-care (01) ==
LOC: ER 01:22
DX: S00.03XA Contusion of scalp, initial encounter (principal); I10 Essential (primary) hypertension; E78.5 Hyperlipidemia, unspecified; F03.90 Unspecified dementia, unspecified severity, without behavioral disturbance, psychotic disturbance, mood disturbance, and anxiety; W18.30XA Fall on same level, unspecified, initial encounter; Y93.89 Activity, other specified; Y92.89 Other specified places as the place of occurrence of the external cause; Y99.8 Other external cause status
CPT/HCPCS: 99285; 72125; 71045; 93005; 70450; 85025; 80048; 81003; 36415; 84484; A6403